=== PATIENT | male | born 1980 | race Caucasian/White ===

== ENCOUNTER 2016-03-12 23:45 | Emergency (ER) | payer OTHER, SELFPAY ==
[~2016-03-12 23:45] MED LIST: CELE-19 PO; FLON1SPR; GABA600T PO; LISI40TAB PO; MIRA33504 PO; MOBI15TA PO; OMEP40CA2 PO; ROBA500T PO; ULTR50TA PO; ZYRT10CA PO
[2016-03-13 00:43] LABS: BASO # 0.1 K/mm3 (0.0-0.2); BASO % 1.2 % (0.0-1.0); EOS # 0.1 K/mm3 (0.0-0.50); EOS % 1.1 % (0.0-3.0); LARGE UNSTAINED CELL # 0.2 K/mm3 (0.0-0.4); LARGE UNSTAINED CELL % 1.7 % (0.0-4.0); LYMPH # 4.2 K/mm3 (1.5-4.5); LYMPH % 39.5 % (24.0-44.0); MEAN CORPUSCULAR HEMOGLOBIN 30.9 pg (27.0-33.0); MEAN CORPUSCULAR HGB CONC 34.7 g/dl (32.0-36.5); MONO # 0.6 K/mm3 (0.0-0.8); MONO % 6.2 % (0.0-5.0); NEUTROPHILS # 5.2 K/mm3 (1.8-7.7); NEUTROPHILS % 50.3 % (36.0-66.0); PLATELET COUNT, AUTOMATED 260 k/mm3 (150-450); RED CELL DISTRIBUTION WIDTH 13.6 % (11.5-14.5); WHITE BLOOD COUNT 10.3 K/mm3 (4.0-10.0)
[2016-03-13 00:51] LABS: ANION GAP 7 MEQ/L (8-16); BLOOD UREA NITROGEN 16 MG/DL (7-18); CALCIUM LEVEL 8.9 MG/DL (8.5-10.1); CARBON DIOXIDE LEVEL 28 MEQ/L (21-32); CHLORIDE LEVEL 107 MEQ/L (98-107); GLOMERULAR FILTRATION RATE > 60.0 (>60); GLUCOSE, FASTING 88 MG/DL (70-105); POTASSIUM SERUM 3.9 MEQ/L (3.5-5.1); SODIUM LEVEL 142 MEQ/L (136-145)
--- NOTE | 2016-03-13 02:32 | EDDOCDS ---
Physician Documentation [facility] Name: Glen Harris Age: 35 yrs Sex: Male : 1980 Arrival Date: 03/12/2016 Time: 23:45 Bed 12 Private MD: Sharlene Acevedo C Disposition: 03/13/16 02:04 Discharged to Home/Self Care. Impression: Chest pain, unspecified. - Condition is Stable. - Discharge Instructions: Nonspecific Chest Pain, Chest Wall Pain, Nonspecific Chest Pain, [id number]. - Medication Reconciliation, Local Pharmacy Hours form. - Follow up: Sharlene Acevedo; When: Call to arrange an appointment; Reason: Continuance of care. - Problem is an acute exacerbation. - Symptoms are resolved. Historical: - Allergies: Bees; - Home Meds: 1. gabapentin 300 mg Oral cap 3 caps daily 2. cetirizine 10 mg oral tab 1 tab once daily 3. fluticasone 50 mcg/actuation nasal spsn 2 sprays once daily 4. lisinopril 40 mg Oral tab 1 tab once daily 5. Magnesium Oxide 100mg Oral daily 6. [place] 5-325 mg Oral tab 1 tab every 6 hours 7. multivitamin Oral tab 1 tablet daily 8. Vitamin B Complex daily 9. vitamin E 200 unit Oral tab Unknown daily - PMHx: Hypertension; Kidney stones; Sciatica; Bulging Discs; Chiari Malformation; - PSHx: Ear Tubes; Colonoscopy; Endoscopy, Upper; - Social history: Smoking status: Patient uses tobacco products, current every day smoker. No barriers to communication noted, The patient speaks fluent Guamanian. - Family history: Not pertinent. - : The pt / caregiver states he / she is not on anticoagulants. Home medication list is obtained from the patient. - Exposure Risk Screening:: None identified. Vital Signs: 03/12 23:48 BP 148 / 96; Pulse 85; Resp 18 S; Temp 97.4(O); Pulse Ox 100% on R/A; Weight 108.86 kg gr2 / 240 lbs (R); Height 5 ft. 11 in. (180.34 cm) (R); Pain 6/10; 03/13 00:04 BP 157 / 98 (auto/); mgs 00:06 Pulse 80 MON; mgs 00:19 BP 142 / 80 (auto/); mgs 00:19 Pulse 84 MON; mgs 00:34 BP 134 / 84 (auto/); mgs 00:34 Pulse 70 MON; Pulse Ox 99% ; mgs 00:49 BP 133 / 83 (auto/); mgs 00:49 Pulse 66 MON; Pulse Ox 99% ; mgs 01:04 BP 137 / 88 (auto/); mgs 01:04 Pulse 70 MON; Pulse Ox 97% ; mgs 01:19 BP 127 / 77 (auto/); mgs 01:19 Pulse 70 MON; Pulse Ox 97% ; mgs 01:34 BP 133 / 81 (auto/); mgs 01:34 Pulse 70 MON; Pulse Ox 96% ; mgs 01:49 BP 122 / 78 (auto/); mgs 01:49 Pulse 66 MON; Pulse Ox 98% ; mgs 02:04 BP 124 / 87 (auto/); mgs 02:04 Pulse 72 MON; Pulse Ox 96% ; mgs 02:19 BP 132 / 74 (auto/); mgs 02:19 Pulse 66 MON; mgs 02:20 BP 134 / 81 (auto/); mgs 02:20 Pulse 60 MON; mgs 02:22 BP 134 / 87; Pulse 60; Resp 18; Temp 97.6(TE); Pulse Ox 98% on R/A; Pain 0/10; jmv 08 23:48 Body Mass Index 33.47 (108.86 kg, 180.34 cm) gr2 MDM: 00:02 ECG WITH READING ER PHYS+CARDIAG ordered. EDMS 00:21 Siebel Developer/Pulse Ox/q 30 min VS ordered. mm11 00:21 IV Saline Lock ordered. mm11 00:21 Rhythm Strip to chart ordered. mm11 00:21 Undress patient appropriately for examination ordered. mm11 00:21 Basic Metabolic Profile Ordered. EDMS 00:22 CBC with Diff Ordered. EDMS 00:22 Cardiac Injury Profile Ordered. EDMS 00:22 D-Dimer Quant Ordered. EDMS 00:22 Troponin Ordered. EDMS 00:22 Chest, 2 View (pa\E\lat) Ordered. EDMS 00:48 Financial registration complete. [facility] 01:06 [facility] Payment Agreement was scanned into [employer] and attached to record. [facility] 01:08 Basic Metabolic Profile Reviewed. mm11 01:08 CBC with Diff Reviewed. mm11 01:08 Cardiac Injury Profile Reviewed. mm11 01:08 D-Dimer Quant Reviewed. mm11 01:08 Troponin Reviewed. 11 Signatures: Dispatcher [employer] Houston Craft, DO 11 Fadumo Forbes Matthew,RN RN Jennifer Valle RN RN af2 The chart was reviewed and I authenticate all verbal orders and agree with the evaluation and treatment provided.Attachments: 01:06 [facility] Payment Agreement [facility] MTDD
--- NOTE | 2016-03-13 02:32 | EDDOCDS ---
Nurse's Notes [facility] Name: Glen Harris Age: 35 yrs Sex: Male : 1980 Arrival Date: 03/12/2016 Time: 23:45 Bed 12 Private MD: Sharlene Acevedo C Diagnosis: Chest pain, unspecified Presentation: 03/12 23:51 Presenting complaint: Patient states: chest pain, aches and pains to bilateral upper af2 extremities. stabbing pain to center of chest, intermittent, SOB. Aspirin was not taken prior to arrival. Adult Sepsis Screening: The patient does not have new or worsening altered mentation. Patient's respiratory rate is less than 22. Systolic blood pressure is greater than 100. Patient has a qSOFA score of 0- Negative Sepsis Screen. Suicide/Homicide risk assessment- the patient denies having any suicidal and/or homicidal ideations and does not present with any other emotional, behavioral or mental health complaints. Status: Patient is not a service line coordinator or dependent. Transition of care: patient was not received from another setting of care. 23:51 Acuity: MIGUEL ANGEL Level 3 af2 23:51 Method Of Arrival: Walkin/Carried/Asstd af2 Triage Assessment: 23:59 General: Appears in no apparent distress, Behavior is cooperative. Pain: Location: af2 chest Pain currently is 4 out of 10 on a pain scale. Pt Declines HIV testing. Cardiovascular: Chest pain is described as mild, radiates Does not radiate. episodes are intermittent began 4 hours prior to arrival. Respiratory: Airway is patent Respiratory effort is even, unlabored. Derm: Skin is normal. Historical: - Allergies: Bees; - Home Meds: 1. gabapentin 300 mg Oral cap 3 caps daily 2. cetirizine 10 mg oral tab 1 tab once daily 3. fluticasone 50 mcg/actuation nasal spsn 2 sprays once daily 4. lisinopril 40 mg Oral tab 1 tab once daily 5. Magnesium Oxide 100mg Oral daily 6. [place] 5-325 mg Oral tab 1 tab every 6 hours 7. multivitamin Oral tab 1 tablet daily 8. Vitamin B Complex daily 9. vitamin E 200 unit Oral tab Unknown daily - PMHx: Hypertension; Kidney stones; Sciatica; Bulging Discs; Chiari Malformation; - PSHx: Ear Tubes; Colonoscopy; Endoscopy, Upper; - Social history: Smoking status: Patient uses tobacco products, current every day smoker. No barriers to communication noted, The patient speaks fluent Wolof. - Family history: Not pertinent. - : The pt / caregiver states he / she is not on anticoagulants. Home medication list is obtained from the patient. - Exposure Risk Screening:: None identified. Screenin/09 00:23 Screening information is obtained from the patient. Fall risk: No risks identified. mgs Assistance ADL's: requires no assistance with activities of daily living. Abuse/DV Screen: The patient / caregiver reports he/she is: not in a situation that causes fear, pain or injury. Nutritional screening: No deficits noted. Advance Directives: Currently, there is no health care proxy. There is no active DNR order. home support is adequate. Assessment: 00:23 Adult Sepsis Screening: The patient does not have new or worsening altered mentation. mgs Patient's respiratory rate is less than 22. Systolic blood pressure is greater than 100. Patient has a qSOFA score of 0- Negative Sepsis Screen. General: Appears in no apparent distress, Behavior is appropriate for age, cooperative. Neurological: Level of Consciousness is awake, alert, Oriented to person, place, time. Cardiovascular: Heart tones S1 S2 present Pulses are 2+ in right radial artery and left radial artery Rhythm is sinus rhythm No ectopy. Reports Pain with deep inhalation that is intermittent, pain usually 4/10. Respiratory: Airway is patent Respiratory effort is even, unlabored, Respiratory pattern is regular, symmetrical. Derm: Skin is pink, warm & dry. 01:18 General: Appears in no apparent distress, Behavior is appropriate for age, cooperative. mgs Neurological: Level of Consciousness is awake, alert, Oriented to person, place, time. Cardiovascular: Heart tones S1 S2 present. Respiratory: Airway is patent Respiratory effort is even, unlabored, Respiratory pattern is regular, symmetrical. Derm: Skin is pink, warm & dry. 02:28 Adult Sepsis Screening: The patient does not have new or worsening altered mentation. mgs Patient's respiratory rate is less than 22. Systolic blood pressure is greater than 100. Patient has a qSOFA score of 0- Negative Sepsis Screen. General: Appears in no apparent distress, Behavior is appropriate for age, cooperative. Neurological: Level of Consciousness is awake, alert, Oriented to person, place, time. Cardiovascular: Capillary refill < 3 seconds. Respiratory: Airway is patent Respiratory effort is even, unlabored, Respiratory pattern is regular, symmetrical. Derm: Skin is pink, warm & dry. Vital Signs: 03/12 23:48 BP 148 / 96; Pulse 85; Resp 18 S; Temp 97.4(O); Pulse Ox 100% on R/A; Weight 108.86 kg gr2 (R); Height 5 ft. 11 in. (180.34 cm) (R); Pain 6/10; 03/13 00:04 BP 157 / 98 (auto/); mgs 00:06 Pulse 80 MON; mgs 00:19 BP 142 / 80 (auto/); mgs 00:19 Pulse 84 MON; mgs 00:34 BP 134 / 84 (auto/); mgs 00:34 Pulse 70 MON; Pulse Ox 99% ; mgs 00:49 BP 133 / 83 (auto/); mgs 00:49 Pulse 66 MON; Pulse Ox 99% ; mgs 01:04 BP 137 / 88 (auto/); mgs 01:04 Pulse 70 MON; Pulse Ox 97% ; mgs 01:19 BP 127 / 77 (auto/); mgs 01:19 Pulse 70 MON; Pulse Ox 97% ; mgs 01:34 BP 133 / 81 (auto/); mgs 01:34 Pulse 70 MON; Pulse Ox 96% ; mgs 01:49 BP 122 / 78 (auto/); mgs 01:49 Pulse 66 MON; Pulse Ox 98% ; mgs 02:04 BP 124 / 87 (auto/); mgs 02:04 Pulse 72 MON; Pulse Ox 96% ; mgs 02:19 BP 132 / 74 (auto/); mgs 02:19 Pulse 66 MON; mgs 02:20 BP 134 / 81 (auto/); mgs 02:20 Pulse 60 MON; mgs 02:22 BP 134 / 87; Pulse 60; Resp 18; Temp 97.6(TE); Pulse Ox 98% on R/A; Pain 0/10; jmv 03/12 23:48 Body Mass Index 33.47 (108.86 kg, 180.34 cm) gr2 Vitals: 03/12 23:48 Log In Time: March 12, 2016 at 23:48. gr2 23:49 RN notified that patient meets Red Flag criteria. gr2 ED Course: 23:47 Patient visited by Mariana Gonzalez. gr2 23:47 Patient moved to Waiting gr2 23:48 Sharlene Acevedo is Private Physician. gr2 23:49 Patient visited by Mariana Gonzalez. gr2 23:49 Patient moved to Pre RCE gr2 23:53 Triage Initiated af2 01/09 00:00 Patient visited by Jennifer Mcarthur RN. af2 00:01 Mary Benites RN is Primary Nurse. af2 00:01 Brenda Montemayor RN is Primary Nurse. af2 00:01 Patient moved to 12 af2 00:02 Houston Simms DO is Attending Physician. mm11 00:02 Patient visited by Houston Simms DO. mm11 00:20 Patient visited by Houston Simms DO. mm11 00:22 Basic Metabolic Profile Sent. mgs 00:22 CBC with Diff Sent. mgs 00:22 Cardiac Injury Profile Sent. mgs 00:22 D-Dimer Quant Sent. mgs 00:22 Troponin Sent. mgs 00:23 Inserted saline lock: 18 gauge in right antecubital area and blood collected. The mgs patient tolerated the procedure well. 00:25 Patient visited by Houston Chu RN. mgs 00:35 EKG done. (by ED staff). Reviewed by Houston Simms DO. kb5 00:42 Primary Nurse role handed off by Mary Benites RN kb5 01:06 [facility] Payment Agreement was scanned into [employer] and attached to record. slh 01:19 Patient visited by Houston Chu RN. mgs 02:03 Patient visited by Houston Simms DO. mm11 02:03 Sharlene Acevedo is Referral Physician. mm11 02:24 Patient visited by Les Carrillo PCA. jmv 02:28 Discontinued IV lock intact, bleeding controlled, pressure dressing applied, No mgs redness/swelling at site. No procedures done that require assistance. 02:29 The patient / caregiver is instructed regarding the plan of care and ED course. Cardiac mgs monitor on. Pulse ox on. NIBP on. Order Results: Lab Order: Basic Metabolic Profile; SPEC'M 03/13/16 00:26 Test: GLUCOSE, FASTING; Value: 88; Range: 70-105; Units: MG/DL; Status: F Test: BLOOD UREA NITROGEN; Value: 16; Range: 7-18; Units: MG/DL; Status: F Test: CREATININE FOR GFR; Value: 1.00; Range: 0.70-1.30; Units: MG/DL; Status: F Test: GLOMERULAR FILTRATION RATE; Value: > 60.0; Range: >60; Status: F Test: SODIUM LEVEL; Value: 142; Range: 136-145; Units: MEQ/L; Status: F Test: POTASSIUM SERUM; Value: 3.9; Range: 3.5-5.1; Units: MEQ/L; Status: F Test: CHLORIDE LEVEL; Value: 107; Range: 98-107; Units: MEQ/L; Status: F Test: CARBON DIOXIDE LEVEL; Value: 28; Range: 21-32; Units: MEQ/L; Status: F Test: ANION GAP; Value: 7; Range: 8-16; Abnormal: Below low normal; Units: MEQ/L; Status: F Test: CALCIUM LEVEL; Value: 8.9; Range: 8.5-10.1; Units: MG/DL; Status: F Test Note: ; Units are mL/min/1.73 m2 Chronic Kidney Disease Staging per NKF: Stage I & II GFR >=60 Normal to Mildly Decreased Stage III GFR 30-59 Moderately Decreased Stage IV GFR 15-29 Severely Decreased Stage V GFR <15 Very Little GFR Left ESRD GFR <15 on [employer]ER Lab Order: CBC with Diff; SPEC'M 03/13/16 00:26 Test: WHITE BLOOD COUNT; Value: 10.3; Range: 4.0-10.0; Abnormal: Above high normal; Units: K/mm3; Status: F Test: RED BLOOD COUNT; Value: 5.10; Range: 4.30-6.10; Units: M/mm3; Status: F Test: HEMOGLOBIN; Value: 15.7; Range: 14.0-18.0; Units: g/dl; Status: F Test: HEMATOCRIT; Value: 45.4; Range: 42.0-52.0; Units: %; Status: F Test: MEAN CORPUSCULAR VOLUME; Value: 89.0; Range: 80.0-96.0; Units: fl; Status: F Test: MEAN CORPUSCULAR HEMOGLOBIN; Value: 30.9; Range: 27.0-33.0; Units: pg; Status: F Test: MEAN CORPUSCULAR HGB CONC; Value: 34.7; Range: 32.0-36.5; Units: g/dl; Status: F Test: RED CELL DISTRIBUTION WIDTH; Value: 13.6; Range: 11.5-14.5; Units: %; Status: F Test: PLATELET COUNT, AUTOMATED; Value: 260; Range: 150-450; Units: k/mm3; Status: F Test: NEUTROPHILS %; Value: 50.3; Range: 36.0-66.0; Units: %; Status: F Test: LYMPH %; Value: 39.5; Range: 24.0-44.0; Units: %; Status: F Test: MONO %; Value: 6.2; Range: 0.0-5.0; Abnormal: Above high normal; Units: %; Status: F Test: EOS %; Value: 1.1; Range: 0.0-3.0; Units: %; Status: F Test: BASO %; Value: 1.2; Range: 0.0-1.0; Abnormal: Above high normal; Units: %; Status: F Test: LARGE UNSTAINED CELL %; Value: 1.7; Range: 0.0-4.0; Units: %; Status: F Test: NEUTROPHILS #; Value: 5.2; Range: 1.8-7.7; Units: K/mm3; Status: F Test: LYMPH #; Value: 4.2; Range: 1.5-4.5; Units: K/mm3; Status: F Test: MONO #; Value: 0.6; Range: 0.0-0.8; Units: K/mm3; Status: F Test: EOS #; Value: 0.1; Range: 0.0-0.50; Units: K/mm3; Status: F Test: BASO #; Value: 0.1; Range: 0.0-0.2; Units: K/mm3; Status: F Test: LARGE UNSTAINED CELL #; Value: 0.2; Range: 0.0-0.4; Units: K/mm3; Status: F Lab Order: Cardiac Injury Profile; SPEC'M 03/13/16 00:26 Test: CPK CREATINE PHOSPHOKINASE; Value: 194; Range: 39-308; Units: U/L; Status: F Test: CK-MB VALUE MASS; Value: 1.3; Range: 0.0-3.6; Units: NG/ML; Status: F Test: MB/CK RELATIVE INDEX; Value: 0.67; Range: < OR =4; Status: F Test Note: ; DIAGNOSIS CRITERIA MMB ng/ml Relative Index (RI) NON-AMI < or = 5 N/A [place] > 5 < or = 4 AMI > 5 > 4 Lab Order: D-Dimer Quant; SPEC'M 03/13/16 00:26 Test: D-DIMER QUANT; Value: < 270.0; Range: <500; Units: ng/ml; Status: F Lab Order: Troponin; SPEC'M 03/13/16 00:26 Test: TROPONIN I; Value: < 0.02; Range: < 0.10; Units: NG/ML; Status: F Test Note: ; Troponin I Reference Interval for [employer] LOCI: 99th Percentile= 0.00-0.045 ng/ml Risk Stratification: <= 0.10 ng/ml Decreased Risk for Adverse Clinical Events. 0.10-1.50 ng/ml Increased Risk for Adverse Clinical Events. Evaluation of additional criterion and/or repeat testing in 2-6 hours is suggested to rule out myocardial damage. >= 1.50 ng/ml Indicative of Myocardial Injury. Outcome: 02:04 Discharge ordered by Provider. mm11 02:28 Discharge Assessment: Patient awake, alert and oriented x 3. No cognitive and/or mgs functional deficits noted. Patient verbalized understanding of disposition instructions. patient administered narcotics - no. The following High Risk Discharge criteria are identified: None. Discharged to home ambulatory, with friend. Condition: stable. Discharge instructions given to patient, Instructed on discharge instructions, follow up and referral plans. Demonstrated understanding of instructions, Pt was receptive of discharge instructions/ teaching. Property sent home with patient. 02:29 No special radiology studies were completed. mgs 02:30 Patient left the ED. mgs Signatures: Vern Kraus, SELVIN MOTOR BLOCK MECHANIC kb5 Houston Simms DO DO mm11 Carlos, Fadumo Segal Matthew,RN RN mgs Jennifer Mcarthur,RN RN af2 Les Carrillo, MOTOR BLOCK MECHANIC MOTOR BLOCK MECHANIC jmv ABYD
--- NOTE | 2016-03-13 08:40 | REP ---
Clinical: Chest pain . Comparison: None of the . Technique: PA and lateral. Findings: The mediastinum and cardiac silhouette are normal. The lung [place] are clear and without acute consolidation, effusion, or pneumothorax. The skeletal structures are intact and normal. Impression: 1. No acute cardiopulmonary process. Signed by Martinez Teague MD 03/13/2016 08:31 A
--- NOTE | 2016-03-13 09:27 | ECGEPIP ---
Stationary ECG Study [facility] - ED Test Date: 2016-03-13 Pat Name: VANESSA ELENA Department: Room: - Gender: M Sprayer Insecticide: FALGUNI : 1980 Requested By: RUBI Meyers Order Number: [id number] Reading MD: Kenia Cisneros Measurements Intervals [place] Rate: 73 P: 35 FL: 169 QRS: 3 QRSD: 92 T: 23 QT: 340 QTc: 376 Interpretive Statements SINUS RHYTHM NO PRIOR FOR COMPARISON Electronically Signed On 03-13-2016 9:27:05 EST by Kenia Cisneros
--- NOTE | 2016-03-15 03:31 | EDDOCDS ---
Nurse's Notes [facility] Name: Vanessa Elena Age: 35 yrs Sex: Male : 1980 Arrival Date: 03/12/2016 Time: 23:45 Bed 12 Private MD: Sharlene Acevedo C Diagnosis: Chest pain, unspecified Presentation: 03/12 23:51 Presenting complaint: Patient states: chest pain, aches and pains to bilateral upper af2 extremities. stabbing pain to center of chest, intermittent, SOB. Aspirin was not taken prior to arrival. Adult Sepsis Screening: The patient does not have new or worsening altered mentation. Patient's respiratory rate is less than 22. Systolic blood pressure is greater than 100. Patient has a qSOFA score of 0- Negative Sepsis Screen. Suicide/Homicide risk assessment- the patient denies having any suicidal and/or homicidal ideations and does not present with any other emotional, behavioral or mental health complaints. Status: Patient is not a slot service specialist or dependent. Transition of care: patient was not received from another setting of care. 23:51 Acuity: MIGUEL ANGEL Level 3 af2 23:51 Method Of Arrival: Walkin/Carried/Asstd af2 Triage Assessment: 23:59 General: Appears in no apparent distress, Behavior is cooperative. Pain: Location: af2 chest Pain currently is 4 out of 10 on a pain scale. Pt Declines HIV testing. Cardiovascular: Chest pain is described as mild, radiates Does not radiate. episodes are intermittent began 4 hours prior to arrival. Respiratory: Airway is patent Respiratory effort is even, unlabored. Derm: Skin is normal. Historical: - Allergies: Bees; - Home Meds: 1. gabapentin 300 mg Oral cap 3 caps daily 2. cetirizine 10 mg oral tab 1 tab once daily 3. fluticasone 50 mcg/actuation nasal spsn 2 sprays once daily 4. lisinopril 40 mg Oral tab 1 tab once daily 5. Magnesium Oxide 100mg Oral daily 6. [place] 5-325 mg Oral tab 1 tab every 6 hours 7. multivitamin Oral tab 1 tablet daily 8. Vitamin B Complex daily 9. vitamin E 200 unit Oral tab Unknown daily - PMHx: Hypertension; Kidney stones; Sciatica; Bulging Discs; Chiari Malformation; - PSHx: Ear Tubes; Colonoscopy; Endoscopy, Upper; - Social history: Smoking status: Patient uses tobacco products, current every day smoker. No barriers to communication noted, The patient speaks fluent Italian. - Family history: Not pertinent. - : The pt / caregiver states he / she is not on anticoagulants. Home medication list is obtained from the patient. - Exposure Risk Screening:: None identified. Screenin/09 00:23 Screening information is obtained from the patient. Fall risk: No risks identified. mgs Assistance ADL's: requires no assistance with activities of daily living. Abuse/DV Screen: The patient / caregiver reports he/she is: not in a situation that causes fear, pain or injury. Nutritional screening: No deficits noted. Advance Directives: Currently, there is no health care proxy. There is no active DNR order. home support is adequate. Assessment: 00:23 Adult Sepsis Screening: The patient does not have new or worsening altered mentation. mgs Patient's respiratory rate is less than 22. Systolic blood pressure is greater than 100. Patient has a qSOFA score of 0- Negative Sepsis Screen. General: Appears in no apparent distress, Behavior is appropriate for age, cooperative. Neurological: Level of Consciousness is awake, alert, Oriented to person, place, time. Cardiovascular: Heart tones S1 S2 present Pulses are 2+ in right radial artery and left radial artery Rhythm is sinus rhythm No ectopy. Reports Pain with deep inhalation that is intermittent, pain usually 4/10. Respiratory: Airway is patent Respiratory effort is even, unlabored, Respiratory pattern is regular, symmetrical. Derm: Skin is pink, warm & dry. 01:18 General: Appears in no apparent distress, Behavior is appropriate for age, cooperative. mgs Neurological: Level of Consciousness is awake, alert, Oriented to person, place, time. Cardiovascular: Heart tones S1 S2 present. Respiratory: Airway is patent Respiratory effort is even, unlabored, Respiratory pattern is regular, symmetrical. Derm: Skin is pink, warm & dry. 02:28 Adult Sepsis Screening: The patient does not have new or worsening altered mentation. mgs Patient's respiratory rate is less than 22. Systolic blood pressure is greater than 100. Patient has a qSOFA score of 0- Negative Sepsis Screen. General: Appears in no apparent distress, Behavior is appropriate for age, cooperative. Neurological: Level of Consciousness is awake, alert, Oriented to person, place, time. Cardiovascular: Capillary refill < 3 seconds. Respiratory: Airway is patent Respiratory effort is even, unlabored, Respiratory pattern is regular, symmetrical. Derm: Skin is pink, warm & dry. Vital Signs: 03/12 23:48 BP 148 / 96; Pulse 85; Resp 18 S; Temp 97.4(O); Pulse Ox 100% on R/A; Weight 108.86 kg gr2 (R); Height 5 ft. 11 in. (180.34 cm) (R); Pain 6/10; 03/13 00:04 BP 157 / 98 (auto/); mgs 00:06 Pulse 80 MON; mgs 00:19 BP 142 / 80 (auto/); mgs 00:19 Pulse 84 MON; mgs 00:34 BP 134 / 84 (auto/); mgs 00:34 Pulse 70 MON; Pulse Ox 99% ; mgs 00:49 BP 133 / 83 (auto/); mgs 00:49 Pulse 66 MON; Pulse Ox 99% ; mgs 01:04 BP 137 / 88 (auto/); mgs 01:04 Pulse 70 MON; Pulse Ox 97% ; mgs 01:19 BP 127 / 77 (auto/); mgs 01:19 Pulse 70 MON; Pulse Ox 97% ; mgs 01:34 BP 133 / 81 (auto/); mgs 01:34 Pulse 70 MON; Pulse Ox 96% ; mgs 01:49 BP 122 / 78 (auto/); mgs 01:49 Pulse 66 MON; Pulse Ox 98% ; mgs 02:04 BP 124 / 87 (auto/); mgs 02:04 Pulse 72 MON; Pulse Ox 96% ; mgs 02:19 BP 132 / 74 (auto/); mgs 02:19 Pulse 66 MON; mgs 02:20 BP 134 / 81 (auto/); mgs 02:20 Pulse 60 MON; mgs 02:22 BP 134 / 87; Pulse 60; Resp 18; Temp 97.6(TE); Pulse Ox 98% on R/A; Pain 0/10; jmv 03/12 23:48 Body Mass Index 33.47 (108.86 kg, 180.34 cm) gr2 Vitals: 03/12 23:48 Log In Time: March 12, 2016 at 23:48. gr2 23:49 RN notified that patient meets Red Flag criteria. gr2 ED Course: 23:47 Patient visited by Mariana Gonzalez. gr2 23:47 Patient moved to Waiting gr2 23:48 Sharlene Acevedo is Private Physician. gr2 23:49 Patient visited by Mariana Gonzalez. gr2 23:49 Patient moved to Pre RCE gr2 23:53 Triage Initiated af2 09 00:00 Patient visited by Jennifer Mcarthur RN. af2 00:01 Mary Benites,DENEEN is Primary Nurse. af2 00:01 Brenda Montemayor,DENEEN is Primary Nurse. af2 00:01 Patient moved to 12 af2 00:02 Rubi Simms DO is Attending Physician. mm11 00:02 Patient visited by Rubi Simsm DO. mm11 00:20 Patient visited by Rubi Simms DO. mm11 00:22 Basic Metabolic Profile Sent. mgs 00:22 CBC with Diff Sent. mgs 00:22 Cardiac Injury Profile Sent. mgs 00:22 D-Dimer Quant Sent. mgs 00:22 Troponin Sent. mgs 00:23 Inserted saline lock: 18 gauge in right antecubital area and blood collected. The mgs patient tolerated the procedure well. 00:25 Patient visited by Rubi Chu RN. mgs 00:35 EKG done. (by ED staff). Reviewed by Rubi Simms DO. kb5 00:42 Primary Nurse role handed off by Mary Benites RN kb5 01:06 [facility] Payment Agreement was scanned into [employer] and attached to record. slh 01:19 Patient visited by Rubi Chu RN. mgs 02:03 Patient visited by Rubi Simms DO. mm11 02:03 Sharlene Acevedo is Referral Physician. mm11 02:24 Patient visited by Les Carrillo PCA. jmv 02:28 Discontinued IV lock intact, bleeding controlled, pressure dressing applied, No mgs redness/swelling at site. No procedures done that require assistance. 02:29 The patient / caregiver is instructed regarding the plan of care and ED course. Cardiac mgs monitor on. Pulse ox on. NIBP on. 09:00 Chest, 2 View (pa\E\lat) Returned. EDMS 09:45 EKG-ADULT Returned. EDMS 11:44 T-Sheet-- Draft Copy was scanned into [employer] and attached to record. gb 11:45 ECG/EKG was scanned into [employer] and attached to record. gb 11:45 Trend VS was scanned into [employer] and attached to record. gb Attachments: 11:45 Trend VS gb Order Results: Lab Order: Basic Metabolic Profile; SPEC'M 03/13/16 00:26 Test: GLUCOSE, FASTING; Value: 88; Range: 70-105; Units: MG/DL; Status: F Test: BLOOD UREA NITROGEN; Value: 16; Range: 7-18; Units: MG/DL; Status: F Test: CREATININE FOR GFR; Value: 1.00; Range: 0.70-1.30; Units: MG/DL; Status: F Test: GLOMERULAR FILTRATION RATE; Value: > 60.0; Range: >60; Status: F Test: SODIUM LEVEL; Value: 142; Range: 136-145; Units: MEQ/L; Status: F Test: POTASSIUM SERUM; Value: 3.9; Range: 3.5-5.1; Units: MEQ/L; Status: F Test: CHLORIDE LEVEL; Value: 107; Range: 98-107; Units: MEQ/L; Status: F Test: CARBON DIOXIDE LEVEL; Value: 28; Range: 21-32; Units: MEQ/L; Status: F Test: ANION GAP; Value: 7; Range: 8-16; Abnormal: Below low normal; Units: MEQ/L; Status: F Test: CALCIUM LEVEL; Value: 8.9; Range: 8.5-10.1; Units: MG/DL; Status: F Test Note: ; Units are mL/min/1.73 m2 Chronic Kidney Disease Staging per NKF: Stage I & II GFR >=60 Normal to Mildly Decreased Stage III GFR 30-59 Moderately Decreased Stage IV GFR 15-29 Severely Decreased Stage V GFR <15 Very Little GFR Left ESRD GFR <15 on IMPORT CLERK Lab Order: CBC with Diff; SPEC'M 03/13/16 00:26 Test: WHITE BLOOD COUNT; Value: 10.3; Range: 4.0-10.0; Abnormal: Above high normal; Units: K/mm3; Status: F Test: RED BLOOD COUNT; Value: 5.10; Range: 4.30-6.10; Units: M/mm3; Status: F Test: HEMOGLOBIN; Value: 15.7; Range: 14.0-18.0; Units: g/dl; Status: F Test: HEMATOCRIT; Value: 45.4; Range: 42.0-52.0; Units: %; Status: F Test: MEAN CORPUSCULAR VOLUME; Value: 89.0; Range: 80.0-96.0; Units: fl; Status: F Test: MEAN CORPUSCULAR HEMOGLOBIN; Value: 30.9; Range: 27.0-33.0; Units: pg; Status: F Test: MEAN CORPUSCULAR HGB CONC; Value: 34.7; Range: 32.0-36.5; Units: g/dl; Status: F Test: RED CELL DISTRIBUTION WIDTH; Value: 13.6; Range: 11.5-14.5; Units: %; Status: F Test: PLATELET COUNT, AUTOMATED; Value: 260; Range: 150-450; Units: k/mm3; Status: F Test: NEUTROPHILS %; Value: 50.3; Range: 36.0-66.0; Units: %; Status: F Test: LYMPH %; Value: 39.5; Range: 24.0-44.0; Units: %; Status: F Test: MONO %; Value: 6.2; Range: 0.0-5.0; Abnormal: Above high normal; Units: %; Status: F Test: EOS %; Value: 1.1; Range: 0.0-3.0; Units: %; Status: F Test: BASO %; Value: 1.2; Range: 0.0-1.0; Abnormal: Above high normal; Units: %; Status: F Test: LARGE UNSTAINED CELL %; Value: 1.7; Range: 0.0-4.0; Units: %; Status: F Test: NEUTROPHILS #; Value: 5.2; Range: 1.8-7.7; Units: K/mm3; Status: F Test: LYMPH #; Value: 4.2; Range: 1.5-4.5; Units: K/mm3; Status: F Test: MONO #; Value: 0.6; Range: 0.0-0.8; Units: K/mm3; Status: F Test: EOS #; Value: 0.1; Range: 0.0-0.50; Units: K/mm3; Status: F Test: BASO #; Value: 0.1; Range: 0.0-0.2; Units: K/mm3; Status: F Test: LARGE UNSTAINED CELL #; Value: 0.2; Range: 0.0-0.4; Units: K/mm3; Status: F Lab Order: Cardiac Injury Profile; [facility] 03/13/16 00:26 Test: CPK CREATINE PHOSPHOKINASE; Value: 194; Range: 39-308; Units: U/L; Status: F Test: CK-MB VALUE MASS; Value: 1.3; Range: 0.0-3.6; Units: NG/ML; Status: F Test: MB/CK RELATIVE INDEX; Value: 0.67; Range: < OR =4; Status: F Test Note: ; DIAGNOSIS CRITERIA MMB ng/ml Relative Index (RI) NON-AMI < or = 5 N/A [place] > 5 < or = 4 AMI > 5 > 4 Lab Order: D-Dimer Quant; [facility] 03/13/16 00:26 Test: D-DIMER QUANT; Value: < 270.0; Range: <500; Units: ng/ml; Status: F Lab Order: Troponin; [facility] 03/13/16 00:26 Test: TROPONIN I; Value: < 0.02; Range: < 0.10; Units: NG/ML; Status: F Test Note: ; Troponin I Reference Interval for [employer] LOCI: 99th Percentile= 0.00-0.045 ng/ml Risk Stratification: <= 0.10 ng/ml Decreased Risk for Adverse Clinical Events. 0.10-1.50 ng/ml Increased Risk for Adverse Clinical Events. Evaluation of additional criterion and/or repeat testing in 2-6 hours is suggested to rule out myocardial damage. >= 1.50 ng/ml Indicative of Myocardial Injury. Radiology Order: EKG-ADULT Test: EKG-ADULT REASON FOR EXAMINATION: Chest Pain; Stationary ECG Study; [facility] - ED; ; Test Date: 2016-03-13; Pat Name: VANESSA ELENA Department:; Room: -; Gender: M Director Of Rehabilitative Services: FALGUNI; : 1980 Requested By: RUBI Meyers; Order Number: [id number] Reading MD: Kenia Cisneros; Measurements; Intervals [place]; Rate: 73 P: 35; IN: 169 QRS: 3; QRSD: 92 T: 23; QT: 340; QTc: 376; Interpretive Statements; SINUS RHYTHM; NO PRIOR FOR COMPARISON; Electronically Signed On 03-13-2016 9:27:05 EST by Kenia Cisneros; Radiology Order: Chest, 2 View (pa\E\lat) Test: Chest, 2 View (pa\E\lat) REASON FOR EXAMINATION: Chest Pain; Clinical: Chest pain .; ; Comparison: None of the .; ; Technique: PA and lateral.; ; Findings:; The mediastinum and cardiac silhouette are normal. The lung [place] are clear and; without acute consolidation, effusion, or pneumothorax. The skeletal structures; are intact and normal.; ; Impression:; 1. No acute cardiopulmonary process.; ; ; Signed by; Martinez Teague MD 03/13/2016 08:31 A; Outcome: 02:04 Discharge ordered by Provider. mm11 02:28 Discharge Assessment: Patient awake, alert and oriented x 3. No cognitive and/or mgs functional deficits noted. Patient verbalized understanding of disposition instructions. patient administered narcotics - no. The following High Risk Discharge criteria are identified: None. Discharged to home ambulatory, with friend. Condition: stable. Discharge instructions given to patient, Instructed on discharge instructions, follow up and referral plans. Demonstrated understanding of instructions, Pt was receptive of discharge instructions/ teaching. Property sent home with patient. 02:29 No special radiology studies were completed. mgs 02:30 Patient left the ED. mgs Signatures: Dispatcher [employer] EDMS Lissy Aquino, Reg Reg gb Vern Kraus, RECORD CHANGER ASSEMBLER RECORD CHANGER ASSEMBLER kb5 Rubi Simms, DO mm11 Mariana Gonzalez gr2 Fadumo Forbes [facility] Rubi Chu,RN RN s Jennifer Mcarthur,RN RN af2 Les Carrillo, RECORD CHANGER ASSEMBLER RECORD CHANGER ASSEMBLER jmv Chart Complete MTDD
--- NOTE | 2016-03-15 03:31 | EDDOCDS ---
Physician Documentation [facility] Name: Glen Harris Age: 35 yrs Sex: Male : 1980 Arrival Date: 03/12/2016 Time: 23:45 Bed 12 Private MD: Sharlene Acevedo C Disposition: 03/13/16 02:04 Discharged to Home/Self Care. Impression: Chest pain, unspecified. - Condition is Stable. - Discharge Instructions: Nonspecific Chest Pain, Chest Wall Pain, Nonspecific Chest Pain, [id number]. - Medication Reconciliation, Local Pharmacy Hours form. - Follow up: Sharlene Acevedo; When: Call to arrange an appointment; Reason: Continuance of care. - Problem is an acute exacerbation. - Symptoms are resolved. Historical: - Allergies: Bees; - Home Meds: 1. gabapentin 300 mg Oral cap 3 caps daily 2. cetirizine 10 mg oral tab 1 tab once daily 3. fluticasone 50 mcg/actuation nasal spsn 2 sprays once daily 4. lisinopril 40 mg Oral tab 1 tab once daily 5. Magnesium Oxide 100mg Oral daily 6. [place] 5-325 mg Oral tab 1 tab every 6 hours 7. multivitamin Oral tab 1 tablet daily 8. Vitamin B Complex daily 9. vitamin E 200 unit Oral tab Unknown daily - PMHx: Hypertension; Kidney stones; Sciatica; Bulging Discs; Chiari Malformation; - PSHx: Ear Tubes; Colonoscopy; Endoscopy, Upper; - Social history: Smoking status: Patient uses tobacco products, current every day smoker. No barriers to communication noted, The patient speaks fluent Burkinan. - Family history: Not pertinent. - : The pt / caregiver states he / she is not on anticoagulants. Home medication list is obtained from the patient. - Exposure Risk Screening:: None identified. Vital Signs: 03/12 23:48 BP 148 / 96; Pulse 85; Resp 18 S; Temp 97.4(O); Pulse Ox 100% on R/A; Weight 108.86 kg gr2 / 240 lbs (R); Height 5 ft. 11 in. (180.34 cm) (R); Pain 6/10; 03/13 00:04 BP 157 / 98 (auto/); mgs 00:06 Pulse 80 MON; mgs 00:19 BP 142 / 80 (auto/); mgs 00:19 Pulse 84 MON; mgs 00:34 BP 134 / 84 (auto/); mgs 00:34 Pulse 70 MON; Pulse Ox 99% ; mgs 00:49 BP 133 / 83 (auto/); mgs 00:49 Pulse 66 MON; Pulse Ox 99% ; mgs 01:04 BP 137 / 88 (auto/); mgs 01:04 Pulse 70 MON; Pulse Ox 97% ; mgs 01:19 BP 127 / 77 (auto/); mgs 01:19 Pulse 70 MON; Pulse Ox 97% ; mgs 01:34 BP 133 / 81 (auto/); mgs 01:34 Pulse 70 MON; Pulse Ox 96% ; mgs 01:49 BP 122 / 78 (auto/); mgs 01:49 Pulse 66 MON; Pulse Ox 98% ; mgs 02:04 BP 124 / 87 (auto/); mgs 02:04 Pulse 72 MON; Pulse Ox 96% ; mgs 02:19 BP 132 / 74 (auto/); mgs 02:19 Pulse 66 MON; mgs 02:20 BP 134 / 81 (auto/); mgs 02:20 Pulse 60 MON; mgs 02:22 BP 134 / 87; Pulse 60; Resp 18; Temp 97.6(TE); Pulse Ox 98% on R/A; Pain 0/10; jmv 08 23:48 Body Mass Index 33.47 (108.86 kg, 180.34 cm) gr2 MDM: 00:02 ECG WITH READING ER PHYS+CARDIAG ordered. EDMS 00:21 Neuro Ophthalmologist/Pulse Ox/q 30 min VS ordered. mm11 00:21 IV Saline Lock ordered. mm11 00:21 Rhythm Strip to chart ordered. mm11 00:21 Undress patient appropriately for examination ordered. mm11 00:21 Basic Metabolic Profile Ordered. EDMS 00:22 CBC with Diff Ordered. EDMS 00:22 Cardiac Injury Profile Ordered. EDMS 00:22 D-Dimer Quant Ordered. EDMS 00:22 Troponin Ordered. EDMS 00:22 Chest, 2 View (pa\E\lat) Ordered. EDMS 00:48 Financial registration complete. [facility] 01:06 [facility] Payment Agreement was scanned into [employer] and attached to record. [facility] 01:08 Basic Metabolic Profile Reviewed. mm11 01:08 CBC with Diff Reviewed. mm11 01:08 Cardiac Injury Profile Reviewed. mm11 01:08 D-Dimer Quant Reviewed. mm11 01:08 Troponin Reviewed. 11 11:44 T-Sheet-- Draft Copy was scanned into MED[employer] and attached to record. gb 11:45 ECG/EKG was scanned into [employer] and attached to record. gb 11:45 Trend VS was scanned into [employer] and attached to record. gb Signatures: Dispatcher [employer] EDMS Lissy Aquino, Reg Reg gb [place] Simms, DO DO [facility] Fadumo Forbes [facility] Houston Chu,RN RN mgs Jennifer McarthurRN RN af2 The chart was reviewed and I authenticate all verbal orders and agree with the evaluation and treatment provided.Attachments: 01:06 [facility] Payment Agreement [facility] 11:44 T-Sheet-- Draft Copy gb 11:45 ECG/EKG gb Chart Complete MTDD
--- NOTE | 2016-03-15 03:31 | EDDOCDS ---
Physician Documentation [facility] Name: Glen Harris Age: 35 yrs Sex: Male : 1980 Arrival Date: 03/12/2016 Time: 23:45 Bed 12 Private MD: Sharlene Acevedo C Disposition: 03/13/16 02:04 Discharged to Home/Self Care. Impression: Chest pain, unspecified. - Condition is Stable. - Discharge Instructions: Nonspecific Chest Pain, Chest Wall Pain, Nonspecific Chest Pain, [id number]. - Medication Reconciliation, Local Pharmacy Hours form. - Follow up: Sharlene Acevedo; When: Call to arrange an appointment; Reason: Continuance of care. - Problem is an acute exacerbation. - Symptoms are resolved. Historical: - Allergies: Bees; - Home Meds: 1. gabapentin 300 mg Oral cap 3 caps daily 2. cetirizine 10 mg oral tab 1 tab once daily 3. fluticasone 50 mcg/actuation nasal spsn 2 sprays once daily 4. lisinopril 40 mg Oral tab 1 tab once daily 5. Magnesium Oxide 100mg Oral daily 6. [place] 5-325 mg Oral tab 1 tab every 6 hours 7. multivitamin Oral tab 1 tablet daily 8. Vitamin B Complex daily 9. vitamin E 200 unit Oral tab Unknown daily - PMHx: Hypertension; Kidney stones; Sciatica; Bulging Discs; Chiari Malformation; - PSHx: Ear Tubes; Colonoscopy; Endoscopy, Upper; - Social history: Smoking status: Patient uses tobacco products, current every day smoker. No barriers to communication noted, The patient speaks fluent Mosotho. - Family history: Not pertinent. - : The pt / caregiver states he / she is not on anticoagulants. Home medication list is obtained from the patient. - Exposure Risk Screening:: None identified. Vital Signs: 03/12 23:48 BP 148 / 96; Pulse 85; Resp 18 S; Temp 97.4(O); Pulse Ox 100% on R/A; Weight 108.86 kg gr2 / 240 lbs (R); Height 5 ft. 11 in. (180.34 cm) (R); Pain 6/10; 03/13 00:04 BP 157 / 98 (auto/); mgs 00:06 Pulse 80 MON; mgs 00:19 BP 142 / 80 (auto/); mgs 00:19 Pulse 84 MON; mgs 00:34 BP 134 / 84 (auto/); mgs 00:34 Pulse 70 MON; Pulse Ox 99% ; mgs 00:49 BP 133 / 83 (auto/); mgs 00:49 Pulse 66 MON; Pulse Ox 99% ; mgs 01:04 BP 137 / 88 (auto/); mgs 01:04 Pulse 70 MON; Pulse Ox 97% ; mgs 01:19 BP 127 / 77 (auto/); mgs 01:19 Pulse 70 MON; Pulse Ox 97% ; mgs 01:34 BP 133 / 81 (auto/); mgs 01:34 Pulse 70 MON; Pulse Ox 96% ; mgs 01:49 BP 122 / 78 (auto/); mgs 01:49 Pulse 66 MON; Pulse Ox 98% ; mgs 02:04 BP 124 / 87 (auto/); mgs 02:04 Pulse 72 MON; Pulse Ox 96% ; mgs 02:19 BP 132 / 74 (auto/); mgs 02:19 Pulse 66 MON; mgs 02:20 BP 134 / 81 (auto/); mgs 02:20 Pulse 60 MON; mgs 02:22 BP 134 / 87; Pulse 60; Resp 18; Temp 97.6(TE); Pulse Ox 98% on R/A; Pain 0/10; jmv 08 23:48 Body Mass Index 33.47 (108.86 kg, 180.34 cm) gr2 MDM: 00:02 ECG WITH READING ER PHYS+CARDIAG ordered. EDMS 00:21 Mounter/Pulse Ox/q 30 min VS ordered. mm11 00:21 IV Saline Lock ordered. mm11 00:21 Rhythm Strip to chart ordered. mm11 00:21 Undress patient appropriately for examination ordered. mm11 00:21 Basic Metabolic Profile Ordered. EDMS 00:22 CBC with Diff Ordered. EDMS 00:22 Cardiac Injury Profile Ordered. EDMS 00:22 D-Dimer Quant Ordered. EDMS 00:22 Troponin Ordered. EDMS 00:22 Chest, 2 View (pa\E\lat) Ordered. EDMS 00:48 Financial registration complete. [facility] 01:06 [facility] Payment Agreement was scanned into [employer] and attached to record. [facility] 01:08 Basic Metabolic Profile Reviewed. mm11 01:08 CBC with Diff Reviewed. mm11 01:08 Cardiac Injury Profile Reviewed. mm11 01:08 D-Dimer Quant Reviewed. mm11 01:08 Troponin Reviewed. 11 11:44 T-Sheet-- Draft Copy was scanned into MED[employer] and attached to record. gb 11:45 ECG/EKG was scanned into [employer] and attached to record. gb 11:45 Trend VS was scanned into [employer] and attached to record. gb Signatures: Dispatcher [employer] EDMS Lissy Aquino, Reg Reg gb [place] Simms, DO DO [facility] Fadumo Forbes [facility] Houston Chu,RN RN mgs Jennifer McarthurRN RN af2 The chart was reviewed and I authenticate all verbal orders and agree with the evaluation and treatment provided.Attachments: 01:06 [facility] Payment Agreement [facility] 11:44 T-Sheet-- Draft Copy gb 11:45 ECG/EKG gb Chart Complete MTDD
== END 2016-03-13 02:30 | disposition home or self-care (01) ==
LOC: M ED 23:45
DX: R07.89 Other chest pain (principal); I10 Essential (primary) hypertension; G93.5 Compression of brain; M54.30 Sciatica, unspecified side; Z87.442 Personal history of urinary calculi; Z72.0 Tobacco use; Z79.891 Long term (current) use of opiate analgesic; Z79.899 Other long term (current) drug therapy; Z91.030 Bee allergy status

== ENCOUNTER 2016-07-13 20:35 | Emergency (ER) | payer OTHER, SELFPAY ==
[~2016-07-13] VITALS: Ht 182.9 cm; Wt 111.1 kg
[2016-07-13] MEDS ORDERED: IBUP600T26 PO (20:43)
[2016-07-13] MEDS ORDERED: MELO7.5T6 PO (20:43)
[2016-07-13] MEDS ORDERED: NORC1TAB4 PO (20:44)
[2016-07-13] MEDS ORDERED: diazePAM 5 MG TAB PO ONE (22:30)
[2016-07-13] MEDS ORDERED: GABAPENTIN 300 MG CAP PO ONE (22:30)
[2016-07-13] MEDS ORDERED: KETOROLAC 60 MG/2 ML VIAL (J1885) IM ONE (22:30)
[2016-07-13] MEDS ORDERED: VALI5TAB PO (22:50)
[2016-07-13] MEDS ORDERED: IBUP80TA PO (22:50)
[2016-07-13] MEDS ORDERED: NEUR300C PO (22:50)
[2016-07-13 23:09] VITALS: BP 155/99
== END 2016-07-13 23:11 | disposition home or self-care (01) ==
LOC: M ED 22:15
DX: S39.012A Strain of muscle, fascia and tendon of lower back, initial encounter (principal); M54.41 Lumbago with sciatica, right side; M54.42 Lumbago with sciatica, left side; X50.0XXA Overexertion from strenuous movement or load, initial encounter; Y92.9 Unspecified place or not applicable; Y93.89 Activity, other specified; Y99.9 Unspecified external cause status; M51.9 Unspecified thoracic, thoracolumbar and lumbosacral intervertebral disc disorder; I10 Essential (primary) hypertension; Z87.442 Personal history of urinary calculi; Z86.73 Personal history of transient ischemic attack (TIA), and cerebral infarction without residual deficits; Z79.899 Other long term (current) drug therapy; Z91.030 Bee allergy status; J30.1 Allergic rhinitis due to pollen
CPT/HCPCS: 96372; 99282; J1885

== ENCOUNTER → 2016-08-09 | Outpatient (CLI) | payer OTHER ==
[~2016-08-09] MED LIST changes: +IBUP600T26 PO; +IBUP80TA PO; +MELO7.5T6 PO; +NEUR300C PO; +NORC1TAB4 PO; +VALI5TAB PO
--- NOTE | 2016-08-09 15:30 | REP ---
MRI LUMBAR SPINE WITHOUT CONTRAST: HISTORY: Back pain. Decreased signal intensity on T2-weighted images is present in the L3-4 through L5-S1 intervertebral discs. The discs are decreased in height. These findings are consistent with disc degeneration. A diffuse disc bulge is present at the L1-2 level. There is minimal compression of the thecal sac. The L1 nerves exit the neural foramina without compression. A diffuse disc bulge is present at the L2-3 level. There is minimal compression of the thecal sac. The L2 nerves exit the neural foramina without compression. A diffuse disc bulge and small central disc protrusion are present at the L3-4 level. There is minimal compression of the thecal sac. The L3 nerves exit the neural foramina without compression. A diffuse disc bulge and small central disc extrusion are present at the L4-5 level. There is inferior migration of disc material. There is mild compression of the thecal sac. There is hypertrophy of the posterior articulating facets. The L4 nerves exit the neural foramina without compression. A diffuse disc bulge and small central disc protrusion are present at the L5-S1 level. There is minimal compression of the thecal sac. There is hypertrophy of the posterior articulating facets. The L5 nerves exit the neural foramina without compression. The conus medullaris is normal in appearance terminating at the level of the L1-2 intervertebral disc. Normal signal intensity is present in the lumbar vertebral bodies. IMPRESSION: 1. Diffuse disc bulges at the L1-2 and L2-3 levels with minimal thecal sac compression. 2. Diffuse disc bulge and small central disc protrusion at the L3-4 and L5-S1 levels with minimal thecal sac compression. 3. Diffuse disc bulge and small central disc extrusion at the L4-5 level with mild thecal sac compression. Signed by Levi Rosas MD 08/09/2016 03:33 P
== END ==
LOC: M RAD 13:48
PROVIDERS: ATTEND Physician Assistant Medical
DX: M54.5 Low back pain (principal)

== ENCOUNTER → 2016-08-16 | Outpatient (CLI) | payer OTHER ==
--- NOTE | 2016-08-17 04:52 | REP ---
Clinical: Obesity. Back pain . Technique: AP, lateral, bilateral oblique, and coned-down views. Findings: Alignment and lordosis is maintained. The vertebral bodies including transverse process and spinous processes are intact and normal. There is no evidence for acute fracture / compression injury or subluxation. No evidence for spondylolysis or spondylolisthesis. No significant degenerative change is noted. Impression: Normal age appropriate lumbosacral spine radiograph series. Signed by Martinez Teague MD 08/17/2016 04:44 A
--- NOTE | 2016-08-17 04:53 | REP ---
Clinical: Obesity. Neck pain . Technique: AP, lateral, flexion/extension, bilateral oblique, and open-mouth views. Findings: Alignment and lordosis is maintained. There is no evidence for acute fracture / compression injury or subluxation. No significant degenerative changes are appreciated. Oblique views demonstrate patent neural foramen. Open mouth view demonstrates normal C1-C2 articulation and odontoid process. Impression: Normal cervical spine series. Signed by Martinez Teague MD 08/17/2016 04:45 A
== END ==
LOC: M LAB 15:21
PROVIDERS: ATTEND Neurological Surgery
DX: E66.9 Obesity, unspecified (principal)

== ENCOUNTER → 2016-08-16 | Outpatient (CLI) | payer OTHER ==
[2016-08-16 17:02] LABS: BASO % 0.6 % (0.0-1.0); EOS # 0.1 K/mm3 (0.0-0.50); LYMPH # 2.4 K/mm3 (1.5-4.5); LYMPH % 33.8 % (24.0-44.0); MEAN CORPUSCULAR HEMOGLOBIN 31.8 pg (27.0-33.0); MEAN CORPUSCULAR HGB CONC 34.3 g/dl (32.0-36.5); MEAN CORPUSCULAR VOLUME 92.6 fl (80.0-96.0); MONO # 0.3 K/mm3 (0.0-0.8); MONO % 3.7 % (0.0-5.0); NEUTROPHILS # 4.1 K/mm3 (1.8-7.7); NEUTROPHILS % 58.8 % (36.0-66.0); RED CELL DISTRIBUTION WIDTH 13.2 % (11.5-14.5)
[2016-08-16 17:21] LABS: FOLATE 20.3 NG/ML; VITAMIN B12 LEVEL 277 PG/ML
[2016-08-16 17:24] LABS: ALBUMIN 3.8 GM/DL (3.2-5.2); ALBUMIN/GLOBULIN RATIO 1.31 (1.00-1.93); ALKALINE PHOSPHATASE 47 U/L (45-117); ALT/SGPT 52 U/L (12-78); ANION GAP 9 MEQ/L (8-16); AST/SGOT 29 U/L (15-37); BILIRUBIN,TOTAL 0.5 MG/DL (0.2-1.0); BLOOD UREA NITROGEN 15 MG/DL (7-18); CALCIUM LEVEL 8.4 MG/DL (8.5-10.1); CARBON DIOXIDE LEVEL 24 MEQ/L (21-32); CHLORIDE LEVEL 105 MEQ/L (98-107); CREATININE FOR GFR 0.97 MG/DL (0.70-1.30); GLOMERULAR FILTRATION RATE > 60.0 (>60); GLUCOSE, FASTING 147 MG/DL (70-105); POTASSIUM SERUM 3.7 MEQ/L (3.5-5.1); SODIUM LEVEL 138 MEQ/L (136-145); TOTAL PROTEIN 6.7 GM/DL (6.4-8.2)
[2016-08-17 13:56] LABS: ALBUMIN % 61.7 % (55.8-66.1); GAMMA GLOBULIN % 14.5 % (11.1-18.8)
[2016-08-17 13:57] LABS: ALBUMIN 4.13 GM/DL (3.29-5.55)
[2016-08-19 00:07] LABS: Lyme Disease IgG/IgM Antibodie <0.91 ISR (0.00-0.90); Lyme Disease IgM Ab Quantitati <0.80 index (0.00-0.79); SJOGREN'S ANTI SS-A <0.2 AI (0.0-0.9); SJOGREN'S ANTI SS-B <0.2 AI (0.0-0.9)
== END ==
LOC: M LAB 15:18
PROVIDERS: ATTEND Physician Assistant Medical
DX: M54.5 Low back pain (principal)

== ENCOUNTER → 2016-08-29 | Outpatient (CLI) | payer OTHER ==
--- NOTE | 2016-08-29 16:00 | REP ---
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 . Comparison study: Comparison CT study is from October 21, 2007. Technique: Axial and sagittal imaging planes are utilized for T1 and T2-weighted scans. Sequences include spin-echo, fast spin echo, FLAIR, and diffusion weighted sequences. MRI findings: No bony calvarial lesion is seen. Craniocervical junction and upper cervical cord are normal in appearance. There is no MR evidence of significant paranasal sinus disease. A mucous retention cyst is seen in the floor of the left maxillary sinus. No intraorbital abnormality is seen. The lateral, third, and fourth ventricles are normal in size and position. Pérez-white differentiation pattern is intact above and below the tentorium. There is no evidence of intracranial hemorrhage. No mass, infarction, extra-axial fluid collection or midline shift is seen. No abnormal white matter lesion is seen. Impression: Negative noncontrast brain MRI study. Signed by Brandon Akins MD 08/29/2016 03:51 P
--- NOTE | 2016-08-29 17:00 | REP ---
REASON FOR EXAM: Headaches. COMPARISON: Cervical spine MRI none. The cranial vertebral junction is within normal limits. There is abnormal linear T2 hypersignal in the cervical cord from the superior endplate of C6 to the inferior endplate of C7. Having a length of approximately 3.3 cm and a maximal width of approximately 4 mm and an AP dimension of approximately 3 mm. No other cord signal abnormalities are noted. The cervical spine vertebral body height and alignment is within normal limits. The disc spaces are of normal height and appear normal hydrated. The facet joints are well aligned bilaterally. The C2-3 level was not imaged. The C3-4 level, there is no disc herniation, foraminal narrowing, or central canal stenosis. At the C4-5 level there is no disc herniation, or foraminal narrowing or central canal stenosis. At the C5-6 level there is a minimal broad based annular bulge. There is no disc herniation, foraminal narrowing or central canal stenosis. Note is again made of the aforementioned hypersignal in the spinal cord. At the C6-7 level there is no disc herniation or foraminal narrowing of central canal stenosis. Note is again made of aforementioned hypersignal in the spinal cord. At the C7-T1 level the aforementioned hypersignal in the spinal cord is nearly not existent. There is no disc herniation, foraminal narrowing, or central canal stenosis. 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 Signed by Jamir Cuellar DO 08/30/2016 11:21 A
== END ==
LOC: M RAD 14:07
PROVIDERS: ATTEND Neurological Surgery
DX: G95.0 Syringomyelia and syringobulbia (principal); M00-M99 Diseases of the musculoskeletal system and connective tissue

== ENCOUNTER → 2016-09-25 | Outpatient (CLI) | payer OTHER ==
[~2016-09-25] MED LIST changes: -CELE-19 PO; +CELE1CAP4 PO; +IBUP-1022 PO; -IBUP600T26 PO; -MELO7.5T6 PO; +MELO7.5T7 PO; -ULTR50TA PO; +ULTR50TA8 PO
[2016-09-25 16:41] LABS: ALBUMIN/GLOBULIN RATIO 1.21 (1.00-1.93); ALKALINE PHOSPHATASE 54 U/L (45-117); ALT/SGPT 37 U/L (12-78); ANION GAP 7 MEQ/L (8-16); AST/SGOT 23 U/L (15-37); BILIRUBIN,TOTAL 0.7 MG/DL (0.2-1.0); BLOOD UREA NITROGEN 21 MG/DL (7-18); CALCIUM LEVEL 9.1 MG/DL (8.5-10.1); CARBON DIOXIDE LEVEL 26 MEQ/L (21-32); CHLORIDE LEVEL 107 MEQ/L (98-107); CREATININE FOR GFR 0.84 MG/DL (0.70-1.30); GLOMERULAR FILTRATION RATE > 60.0 (>60); GLUCOSE, FASTING 98 MG/DL (70-105); POTASSIUM SERUM 4.2 MEQ/L (3.5-5.1); SODIUM LEVEL 140 MEQ/L (136-145); TOTAL PROTEIN 7.3 GM/DL (6.4-8.2)
== END ==
LOC: M LAB 15:17
PROVIDERS: ATTEND Physician Assistant Medical
DX: E27.8 Other specified disorders of adrenal gland (principal)

== ENCOUNTER 2016-09-26 13:00 | Outpatient (RCR) | payer OTHER | END 2016-10-02 | disposition home or self-care (01) | LOC: M PT 13:00 | PROVIDERS: ATTEND Physician Assistant Medical | DX: M54.5 Low back pain (principal) ==

== ENCOUNTER 2016-10-04 19:04 | Emergency (ER) | payer OTHER ==
[~2016-10-04] VITALS: Ht 180.3 cm; Wt 109.0 kg
[2016-10-04 19:05] VITALS: BP 145/83
[2016-10-04] MEDS ORDERED: VALI5TAB PO (21:15)
[2016-10-04] MEDS ORDERED: diazePAM 5 MG TAB PO ONE (21:15)
[2016-10-04] MEDS ORDERED: ONDANSETRON 4 MG ORAL DISINTEGRATING TAB (S0181) PO ONE (21:15)
[2016-10-04] MEDS ORDERED: MORPHINE 4 MG/ML 1ML SYRINGE IM ONE (21:15)
== END 2016-10-04 22:07 | disposition home or self-care (01) ==
LOC: M ED 19:04
DX: M51.36 Other intervertebral disc degeneration, lumbar region (principal); M54.31 Sciatica, right side; Z86.73 Personal history of transient ischemic attack (TIA), and cerebral infarction without residual deficits; Z87.442 Personal history of urinary calculi; Z91.030 Bee allergy status; Z79.899 Other long term (current) drug therapy

== ENCOUNTER 2016-10-18 16:00 | Outpatient (RCR) | payer OTHER | END 2016-11-02 | LOC: M PT 16:00 | PROVIDERS: ATTEND Physician Assistant Medical | DX: Z51.89 Encounter for other specified aftercare (principal); M54.5 Low back pain ==

== ENCOUNTER → 2016-11-01 | Outpatient (CLI) | payer OTHER ==
--- NOTE | 2016-11-17 00:38 | ECWPNPC ---
PATIENT NAME: VANESSA ELENA : 1980 GENDER: MALE VISIT DATE: 11/01/2016 DISCHARGE DATE: 11/01/16 1642 VISIT LOCKED DATE TIME: PHYSICIAN: ZENA GUILLORY RESOURCE: ZENA GUILLORY REASON FOR APPOINTMENT 1. NECK/BACK HISTORY OF PRESENT ILLNESS HISTORY OF PRESENT ILLNESS: PAIN THE PATIENT DESCRIBES THE PAIN... FALL RISK SCREENING: SCREENING :NO FALLS IN THE PAST YEAR TODAY'S VISIT: NOTES: REFERRED BY DR PATRICIA ARTIS FOR CHRONIC LOW BACK PAIN . PCP IS Sarah STEVEN PA-C. ONSET WAS A CHILD WHEN HE FELL OUT OF A TREE, AND SINCE HAS BEEN VERY ACTIVE WITH WORK. IN MID S HAS BEGUN TO HAVE PAIN SO BAD IT STOPS HIM FROM FUNCTIONING. HAD EPISODE OF INTENSE POPPING IN LOW BACK. CAN NOT LEAN FORWARD HAD PAIN OVER THE CENTER SPINE, AND THIS IS FOLLOWED BY SEVERE MUSCLE SPASMS. HAS NERVE PAIN FIRING DOWN LEGS, RIGHT MORE THAN LEFT. HAS INTENSE SENSE OF ACHING WITH ACTIVITY. IS HAVING NERVE PAIN AND N/T IN RIGHT ANKLE AND ALONG RIGHT LEG. HAS ATTENEDED PT WHICH WAS HELPFUL AND HE CONTINUES HEP. HAS HAD INJECTIONS MIGUEL ANGEL WITH DR SOTO. WAS ON SEVERAL MEDS.. CURRENT MEDICATIONS TAKING FLONASE 50 MCG/DOSE INHALER 1 SPRAY IN EACH NOSTRIL NASALLY ONCE A DAY TAKING ZYRTEC 10 MG TABLET 1 TABLET NEEDED ORALLY ONCE A DAY TAKING FLOMAX 0.4 MG CAPSULE EXTENDED RELEASE 24 HOUR 1 CAPSULE 30 MINUTES AFTER THE SAME MEAL EACH DAY ORALLY ONCE A DAY TAKING CELEBREX 200 MG CAPSULE 1 CAPSULE WITH FOOD ORALLY ONCE A DAY TAKING GABAPENTIN 300 MG CAPSULE 1 CAPSULE ORALLY THREE TIMES A DAY TAKING VICODIN ES 7.5-300 MG TABLET 1 TABLET NEEDED ORALLY EVERY 6 HRS TAKING MAGNESIUM 200 MG TABLET 2 TABLETS WITH A MEAL ORALLY ONCE A DAY TAKING VITAMIN B-2 25 MG TABLET 1 TABLET WITH A MEAL ORALLY ONCE A DAY TAKING VITAMIN D (ERGOCALCIFEROL) 35895 UNIT CAPSULE 1 CAPSULE ORALLY TAKING LISINOPRIL 40 MG TABLET 1 TABLET ORALLY ONCE A DAY TAKING CYCLOBENZAPRINE HCL 5 MG TABLET 1 TABLET NEEDED ORALLY THREE TIMES A DAY NOT-TAKING CARLOZ ALLERGY 60 MG TABLET 1 TABLET ORALLY TWICE A DAY NOT-TAKING IBUPROFEN 800 MG TABLET 1 TABLET ORALLY THREE TIMES A DAY NOT-TAKING CEPHALEXIN 500 MG CAPSULE 1 CAPSULE ORALLY TWICE A DAY NOT-TAKING ZOFRAN 4 MG TABLET 2 TABLETS ORALLY ONCE A DAY MEDICATION LIST REVIEWED AND RECONCILED WITH THE PATIENT PAST MEDICAL HISTORY SCIATICA KIDNEY STONE CHIARI MALFORMATION ALLERGIES BEES: ANAPHYLAXIS: ALLERGY SURGICAL HISTORY EAR TUBES CHILD FAMILY HISTORY FATHER: ALIVE MOTHER: ALIVE, DM, BI-POLAR, SCIATICA 5 BROTHER(S) , 8 SISTER(S) - HEALTHY. NO KNOWN FAMILY HISTORY OF ANY UROLOGICALLY RELATED DISEASES/CANCERS. SOCIAL HISTORY GENERAL: TOBACCO USE ARE YOU A:FORMER SMOKER LUNG CANCER SCREENING SMOKING STATUS:FORMER SMOKER ALCOHOL SCREENING POINTS0 INTERPRETATIONNEGATIVE RECREATIONAL DRUG USE ACCEDES MARIJUANA USE WEEKLY. CAFFEINE 3 CUPS/DAY. 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 DIET: REGULAR. EXERCISE: ACTIVE. MARITAL STATUS: SINGLE. OTHERS AT HOME: S.O.. QUAKER NO PENTECOSTAL BELIEFS THAT WOULD IMPACT HEALTH CARE. LANGUAGE BURMESE. ADVANCE DIRECTIVES HEALTH CARE PROXY?NO WOULD YOU LIKE MORE INFORMATION?NO DO YOU HAVE A DNR?NO WOULD YOU LIKE MORE INFORMATION?NO LIVING WILL?NO WOULD YOU LIKE MORE INFORMATION?NO POWER OF DIESEL SERVICE TECHNICIAN?NO TRAVEL OUTSIDE US: DENIES. DOMESTIC VIOLENCE NONE. HOSPITALIZATION/MAJOR DIAGNOSTIC PROCEDURE PNEUMONIA X 3 REVIEW OF SYSTEMS REVIEWED BY: PROVIDER: ZENA MORRISON . CONSTITUTIONAL: ANY CHANGE IN YOUR MEDICAL CONDITION? NO . CHILLS NO . FEVER NO . INFECTION: DO YOU HAVE NEW INFECTIONS? NO . DO YOU HAVE HISTORY OF MRSA? NO . MUSCULOSKELETAL: ANY NEW PATTERNS OF PAIN OR NUMBNESS? NO . GASTROENTEROLOGY: ANY NEW CHANGE IN BOWEL CONTROL? NO . GENITOURINARY: ANY NEW CHANGE IN BLADDER CONTROL? NO . IS THERE A CHANCE YOU COULD BE ? NO . HEMATOLOGY/LYMPH: DO YOU TAKE ANY BLOOD THINNERS? (FOR EXAMPLE- COUMADIN, PLAVIX, AGGRENOX, PLATEL, PRADAXA, OR XARELTO) NO . WHEN WAS YOUR LAST DOSE? DATE: TIME: . NEUROLOGY: HAVE YOU FALLEN IN THE PAST 6 MONTHS? NO . ANY NEW EXTREMITY NUMBNESS OR WEAKNESS? NO . HEADACHE HEADACHE - POSSIBLE ARNOLD CHIARI MALFORMATION. HX OF MIGRSINES A TEEN . CARDIOLOGY: DO YOU HAVE A PACEMAKER OR DEFIBRILLATOR? NO . HIGH BLOOD PRESSURE ON MEDS . RESPIRATORY: HAVE YOU BEEN SICK IN THE PAST WEEK? NO . FEVER NO . FLU LIKE SYMPTOMS? NO . COUGH NO . INTEGUMENTARY: DO YOU HAVE ANY RASHES OR OPEN SORES? SCALEY RASH ON ARMS -BEING SCHEDULED FOR RHEUMATOLGY EVAL . ALLERGIC/IMMUNO: ARE YOU ALLERGIC TO SHELLFISH OR IV DYE? NO . ANY NEW ALLERGIES? NO . PSYCHIATRIC: DO YOU HAVE THOUGHTS OF HURTING YOURSELF OR SOMEONE ELSE? NO . ARE YOU ABUSED, NEGLECTED, OR IN AN UNSAFE ENVIRONMENT? NO . ENDOCRINOLOGY: ARE YOU DIABETIC? NO . OTHER: DO YOU NEED ANY PRESCRIPTIONS? NO . IF YES, PLEASE LIST: ____ . ANY NEW PROBLEMS WITH YOUR MEDICATIONS? NO . WHEN DID YOU LAST EAT? ____ . WHEN DID YOU LAST DRINK? ____ . WHAT DID YOU LAST DRINK? ____ . NAME OF PERSON DRIVING YOU HOME? ____ . DO YOU HAVE ANY OTHER QUESTIONS OR CONCERNS NO . UROLOGY: GENERAL RECURRENT KIDNEY STONES . VITAL SIGNS WT 261 LBS, HT 6', BMI 35.39 INDEX, BP 131/97 MM HG, HR 69 /MIN, RR 18 /MIN, TEMP 98.4 F, OXYGEN SAT % 96, REVIEWED BY: EM. EXAMINATION GENERAL EXAMINATION: PSYCHALERT , ORIENTED X 3 , APPROPRIATE MOOD AND AFFECT . HEENT:NORMOCEPHALIC, NO LYPHADENOPATHY, NO THYROMEGLY. LUNGS:NO WHEEZES, RHONCHI, RALES, , COUGH, CLEAR TO AUSCULTATION BILATERALLY. HEART:S1, S2 IN A REGULAR RATE AND RHYTHM. NO SIGNIFICANT MURMURS, RUBS OR GALLOPS NOTED. MUSCULOSKELETAL:VERY POOR RANGE OF MOTION WITH INTERNAL ROTATION AT HIPS. DIFF WITH HEEL WALK. RLE WEAKNESS, POINT TENDERNESS OVER LUMBAR SPINOUS PROCESSES AND RIGHT>LEFT LUMBOSACRAL AXIS.POINT TENDERNESS OVER LEFT SIJ . FLAT FEET NOTED BILATERALLY. SLR POSITIVE AT 20 DEGREES ON RIGHT, 40 DEGREES ON LEFT. CAN FLEX TO 45 DEGREEES, EXTEND TO 10 DEGREES.. NEUROLOGIC EXAM:CN'S II-XII GROSSLY INTACT, DECCREASED SENSATION RIGHT LOWER EXTREMITIY DTR'S TRACE - 1= BILATERALLY AT KNEE - NO ANKLE JERKS, NO PLANTAR RESPONSE. NO CLONUS. DIAGNOSTIC TESTS REVIEWEDMRI OF LUMBAR SPINE REVIEWED - PER RADIOLOGIST HAS DFFUSE DISC BULGE AT L1-2 AND L2-3 WITH MINIMAL THECAL SAC COMPRESSION. THERE IS DIFFISE DISC BULGE AND SMALL CENTRAL DISC PROTRUSION AT L3-4 AND L5-S1. DIFFUSE DISC BULGE AND SMALL CENTRAL DISC EXTREUSION NOTED AT L4-5. . ASSESSMENTS LUMBAR DISC DISPLACEMENT WITHOUT MYELOPATHY - M51.26 (PRIMARY) LUMBAR RADICULOPATHY - M54.16 TREATMENT LUMBAR DISC DISPLACEMENT WITHOUT MYELOPATHY NOTES: RECOMMEND INCREASE OF GABAPENTIN TO 400 MG UP TO 3TIMES PER DAY. RECOMMEND RIGHT L4-5 AND L5-S1 TRANSFORAMINAL EPIDURAL. CONSIDER CYMBALTA,WHAT IS LUMBAR EPIDURAL INJECTION? MATERIAL WAS PRINTED, REVIEWED AND GIVEN TO PT. CLINICAL NOTES: CYMBALTA INFORMATION PRINTED, REVIEWED AND GIVEN TO PT. PROCEDURE CODES FA211 ESTABILISHED PATIENT [facility] CHARGE DISPOSITION & COMMUNICATION FOLLOW UP AFTER INJECTION (REASON: CHECK AUTH RIGHT L4-5 AND L5-S1 TRANSFORAMINAL EPIDURAL) ELECTRONICALLY SIGNED BY LUDY MAHAJAN ON 11/16/2016 AT 05:41 PM EDT DISCLAIMER : THIS IS A VISIT SUMMARY EXTRACTED FROM THE [facility] CHART. IT IS NOT A COPY OF THE [facility] PROGRESS NOTE. AYANNA
== END ==
LOC: M PAIN 14:00
PROVIDERS: ATTEND Nurse Practitioner Family
DX: M51.26 Other intervertebral disc displacement, lumbar region (principal); M54.16 Radiculopathy, lumbar region; Z79.891 Long term (current) use of opiate analgesic; Z87.891 Personal history of nicotine dependence; Z91.030 Bee allergy status

== ENCOUNTER → 2016-12-14 | Outpatient (CLI) | payer OTHER | LOC: M PAIN 14:30 | PROVIDERS: ATTEND Nurse Practitioner Family | DX: M51.26 Other intervertebral disc displacement, lumbar region (principal); M54.16 Radiculopathy, lumbar region; Z79.899 Other long term (current) drug therapy; Z91.030 Bee allergy status ==

== ENCOUNTER 2017-02-04 20:14 | Emergency (ER) | payer OTHER ==
[~2017-02-04] VITALS: Ht 180.3 cm; Wt 111.4 kg
[2017-02-04] MEDS ORDERED: CELE1CAP9 PO (20:24)
[2017-02-04] MEDS ORDERED: VITA1CAP40 PO (20:24)
[2017-02-04] MEDS ORDERED: CYCL10TA PO (20:24)
[2017-02-04] MEDS ORDERED: MORPHINE 2 MG/ML 1ML SYRINGE IV ONE (21:45)
[2017-02-04] MEDS ORDERED: ONDANSETRON 4MG/2ML VIAL (J2405) IV ONE (21:45)
[2017-02-04 22:09] LABS: BASO % 0.3 % (0.0-1.0); EOS # 0.1 10^3/uL (0.0-0.50); EOS % 1.2 % (0.0-3.0); IMMATURE GRANULOCYTE % 0.3 % (0-0); LYMPH # 3.1 10^3/uL (1.5-4.5); LYMPH % 32.8 % (24.0-44.0); MEAN CORPUSCULAR HEMOGLOBIN 30.9 pg (27.0-33.0); MEAN CORPUSCULAR HGB CONC 34.5 g/dl (32.0-36.5); MEAN CORPUSCULAR VOLUME 89.4 fl (80.0-96.0); MONO # 0.8 10^3/uL (0.0-0.8); MONO % 8.2 % (0.0-5.0); NEUTROPHILS # 5.4 10^3/uL (1.8-7.7); NEUTROPHILS % 57.2 % (36.0-66.0); PLATELET COUNT, AUTOMATED 277 10^3/uL (150-450); RED CELL DISTRIBUTION WIDTH 12.6 % (11.5-14.5); WHITE BLOOD COUNT 9.4 10^3/uL (4.0-10.0)
[2017-02-04 22:37] LABS: ALBUMIN 3.7 GM/DL (3.2-5.2); ALBUMIN/GLOBULIN RATIO 0.93 (1.00-1.93); ALKALINE PHOSPHATASE 62 U/L (45-117); ALT/SGPT 37 U/L (12-78); ANION GAP 4 MEQ/L (8-16); AST/SGOT 24 U/L (7-37); BILIRUBIN,DIRECT 0.1 MG/DL (0.0-0.2); BILIRUBIN,TOTAL 0.6 MG/DL (0.2-1.0); BLOOD UREA NITROGEN 17 MG/DL (7-18); CARBON DIOXIDE LEVEL 30 MEQ/L (21-32); CHLORIDE LEVEL 106 MEQ/L (98-107); CREATININE FOR GFR 0.98 MG/DL (0.70-1.30); GLOMERULAR FILTRATION RATE > 60.0 (>60); GLUCOSE, FASTING 84 MG/DL (70-105); SODIUM LEVEL 140 MEQ/L (136-145); TOTAL PROTEIN 7.7 GM/DL (6.4-8.2)
--- NOTE | 2017-02-04 22:50 | REPUSA ---
Clinical history: Right upper quadrant pain. Findings: The pancreas is limited in visualization secondary to overlying bowel gas. The liver demons trates uniform echotexture and echogenicity, with no mass lesions. The gallbladder is unremarkable. T he common bile duct measures 4 mm and is within normal limits. There is no ascites. The right kidney measures 9.7 cm in length and is unremarkable. Impression: Unremarkable ultrasound examination of the right upper quadrant.
[2017-02-04] MEDS ORDERED: OMEP40CA2 PO (23:40)
[2017-02-04] MEDS ORDERED: NORCOTAB PO (23:40)
[2017-02-04] MEDS ORDERED: NORCO 5/325MG TABLET (BULK FOR ED) PO ONE (23:45)
[2017-02-05 00:22] VITALS: BP 136/86
== END 2017-02-05 00:24 | disposition home or self-care (01) ==
LOC: M ED 20:14
DX: K21.9 Gastro-esophageal reflux disease without esophagitis (principal); K80.51 Calculus of bile duct without cholangitis or cholecystitis with obstruction; I10 Essential (primary) hypertension; Z87.442 Personal history of urinary calculi; J30.1 Allergic rhinitis due to pollen; F17.200 Nicotine dependence, unspecified, uncomplicated; Z79.899 Other long term (current) drug therapy
CPT/HCPCS: 76705; 80048; 80076; 81001; 83690; 85025; 96374; 96375; 99284; J2405

== ENCOUNTER → 2017-03-06 | Outpatient (CLI) | payer OTHER ==
[2017-03-06 19:14] LABS: BASO % 0.4 % (0.0-1.0); EOS # 0.2 10^3/uL (0.0-0.50); EOS % 2.2 % (0.0-3.0); HEMATOCRIT 45.2 % (42.0-52.0); HEMOGLOBIN 15.8 g/dl (14.0-18.0); IMMATURE GRANULOCYTE # 0.1 10^3/uL (0-0); IMMATURE GRANULOCYTE % 0.9 % (0-0); LYMPH # 3.5 10^3/uL (1.5-4.5); LYMPH % 37.7 % (24.0-44.0); MEAN CORPUSCULAR VOLUME 88.8 fl (80.0-96.0); MONO # 0.6 10^3/uL (0.0-0.8); MONO % 6.5 % (0.0-5.0); NEUTROPHILS # 4.8 10^3/uL (1.8-7.7); NEUTROPHILS % 52.3 % (36.0-66.0); PLATELET COUNT, AUTOMATED 267 10^3/uL (150-450); RED BLOOD COUNT 5.09 10^6/uL (4.30-6.10); WHITE BLOOD COUNT 9.2 10^3/uL (4.0-10.0)
[2017-03-06 19:53] LABS: ALBUMIN/GLOBULIN RATIO 1.25 (1.00-1.93); ALKALINE PHOSPHATASE 54 U/L (45-117); ALT/SGPT 31 U/L (12-78); ANION GAP 6 MEQ/L (8-16); AST/SGOT 19 U/L (7-37); BILIRUBIN,TOTAL 0.5 MG/DL (0.2-1.0); BLOOD UREA NITROGEN 10 MG/DL (7-18); CALCIUM LEVEL 8.7 MG/DL (8.5-10.1); CARBON DIOXIDE LEVEL 28 MEQ/L (21-32); CHLORIDE LEVEL 107 MEQ/L (98-107); CREATININE FOR GFR 0.81 MG/DL (0.70-1.30); GLOMERULAR FILTRATION RATE > 60.0 (>60); GLUCOSE, FASTING 106 MG/DL (70-105); LIPASE 138 U/L (73-393); POTASSIUM SERUM 4.2 MEQ/L (3.5-5.1); SODIUM LEVEL 141 MEQ/L (136-145); TOTAL PROTEIN 7.2 GM/DL (6.4-8.2)
== END ==
LOC: M LAB 18:21
DX: R10.11 Right upper quadrant pain (principal)

== ENCOUNTER → 2017-03-20 | Outpatient (CLI) | payer OTHER | LOC: M RAD 08:20 | DX: R10.11 Right upper quadrant pain (principal) | CPT/HCPCS: J2805 ==

== ENCOUNTER → 2017-04-11 | Outpatient (CLI) | payer OTHER ==
[~2017-04-11] MED LIST changes: -CELE1CAP4 PO; -FLON1SPR; -GABA600T PO; -IBUP-1022 PO; -IBUP80TA PO; +ISOVUE-M 300 61% 15ML VIAL (Q9967) As Ordered; +LIDOCAINE 1% SDV INJ 30 ML VIAL As Ordered; -LISI40TAB PO; -MELO7.5T7 PO; -MIRA33504 PO; -MOBI15TA PO; -NEUR300C PO; -NORC1TAB4 PO; -OMEP40CA2 PO; -ROBA500T PO; -ULTR50TA8 PO; -VALI5TAB PO; -ZYRT10CA PO; +diazePAM 5 MG TAB As Ordered; +methylPREDNISolone SUSP 40 MG/ML (DEPO-medrol) VIAL (J1030) As Ordered; +oxyCODONE 5MG TAB As Ordered
== END ==
LOC: M PAIN 13:45
DX: G89.29 Other chronic pain (principal); M51.16 Intervertebral disc disorders with radiculopathy, lumbar region; Z79.899 Other long term (current) drug therapy; Z91.030 Bee allergy status
CPT/HCPCS: J1030

== ENCOUNTER → 2017-04-25 | Outpatient (CLI) | payer OTHER | LOC: M PAIN 15:15 | DX: M51.26 Other intervertebral disc displacement, lumbar region (principal); M79.1 Myalgia; Z79.899 Other long term (current) drug therapy; Z91.030 Bee allergy status; Z87.891 Personal history of nicotine dependence | CPT/HCPCS: G0463 ==

== ENCOUNTER 2017-05-04 15:30 | Emergency (ER) | payer OTHER ==
[2017-05-04] MEDS: ALBUTEROL SULFATE 2.5 MG/0.5 ML INH NEB SOLN NEB (16:37)
[2017-05-04] MEDS: ACETAMINOPHEN 325 MG TAB PO (16:37)
[2017-05-04 17:09] LABS: INFLUENZA A AMPLIFICATION NEGATIVE (NEGATIVE); INFLUENZA B AMPLIFICATION POSITIVE (NEGATIVE)
== END 2017-05-04 17:32 | disposition home or self-care (01) ==
LOC: M ED 15:30
DX: J10.1 Influenza due to other identified influenza virus with other respiratory manifestations (principal); Z86.73 Personal history of transient ischemic attack (TIA), and cerebral infarction without residual deficits; R51 Headache; K21.9 Gastro-esophageal reflux disease without esophagitis; Z87.442 Personal history of urinary calculi; M54.9 Dorsalgia, unspecified; M79.2 Neuralgia and neuritis, unspecified; M77.9 Enthesopathy, unspecified; F17.200 Nicotine dependence, unspecified, uncomplicated; Z79.899 Other long term (current) drug therapy; Z91.030 Bee allergy status
CPT/HCPCS: 71046

== ENCOUNTER 2017-08-21 13:33 | Emergency (ER) | payer OTHER ==
[2017-08-21] MEDS: TETRACAINE 0.5% OPHTH SOLN 4ML OU (14:15)
[2017-08-21] MEDS: LISSAMINE GREEN OPHTH 1.5 MG STRIP OU (14:15)
[2017-08-21] MEDS: CIPROFLOXACIN 0.3% OPHTH SOLN 2.5ML OS (14:52)
== END 2017-08-21 14:58 | disposition home or self-care (01) ==
LOC: M ED 13:33
DX: H20.012 Primary iridocyclitis, left eye (principal); I10 Essential (primary) hypertension; M54.9 Dorsalgia, unspecified; Z91.030 Bee allergy status; Z79.899 Other long term (current) drug therapy
CPT/HCPCS: 99283

== ENCOUNTER → 2017-09-01 | Outpatient (CLI) | payer OTHER | LOC: M RAD 14:56 | DX: M25.572 Pain in left ankle and joints of left foot (principal) | CPT/HCPCS: 73610 ==

== ENCOUNTER → 2017-10-03 | Outpatient (CLI) | payer OTHER | LOC: M PAIN 11:45 | DX: M54.81 Occipital neuralgia (principal); M51.26 Other intervertebral disc displacement, lumbar region; G43.709 Chronic migraine without aura, not intractable, without status migrainosus; Z79.899 Other long term (current) drug therapy; Z91.030 Bee allergy status; Z87.891 Personal history of nicotine dependence | CPT/HCPCS: G0463 ==

== ENCOUNTER → 2017-11-07 | Outpatient (CLI) | payer OTHER | LOC: M PAIN 11:00 | DX: M46.1 Sacroiliitis, not elsewhere classified (principal); M54.81 Occipital neuralgia; M51.26 Other intervertebral disc displacement, lumbar region; G43.709 Chronic migraine without aura, not intractable, without status migrainosus; F17.210 Nicotine dependence, cigarettes, uncomplicated; Z79.899 Other long term (current) drug therapy; Z91.030 Bee allergy status | CPT/HCPCS: G0463 ==

== ENCOUNTER → 2017-11-09 | Outpatient (REF) | payer OTHER | LOC: M LAB REF 12:25 | DX: L72.11 Pilar cyst (principal) | CPT/HCPCS: 88304 ==

== ENCOUNTER → 2018-01-09 | Outpatient (CLI) | payer OTHER ==
[~2018-01-09] MED LIST changes: +BUPIVACAINE HCL 0.25% 30 ML VIAL As Ordered; +TRIAMCINOLONE ACETONIDE SUSP 40 MG/ML VIAL (J3301) As Ordered; -methylPREDNISolone SUSP 40 MG/ML (DEPO-medrol) VIAL (J1030) As Ordered
== END ==
LOC: M PAIN 11:15
DX: M46.1 Sacroiliitis, not elsewhere classified (principal); M54.30 Sciatica, unspecified side; F17.210 Nicotine dependence, cigarettes, uncomplicated; Z87.442 Personal history of urinary calculi; Z91.030 Bee allergy status; Z79.899 Other long term (current) drug therapy
CPT/HCPCS: J3301

== ENCOUNTER → 2018-01-30 | Outpatient (CLI) | payer OTHER | LOC: M PAIN 14:30 | DX: M51.26 Other intervertebral disc displacement, lumbar region (principal); M79.7 Fibromyalgia; F17.210 Nicotine dependence, cigarettes, uncomplicated; Z79.899 Other long term (current) drug therapy; Z91.030 Bee allergy status | CPT/HCPCS: G0463 ==

== ENCOUNTER → 2018-03-20 | Outpatient (CLI) | payer OTHER ==
[~2018-03-20] MED LIST changes: +BUPIVACAINE HCL 0.25% 10 ML VIAL As Ordered ONE; -BUPIVACAINE HCL 0.25% 30 ML VIAL As Ordered; +BUPIVACAINE HCL 0.25% 30 ML VIAL As Ordered ONE; +CELE1CAP4 PO; +CELE1CAP9 PO; +CIPR0.3S OS; +CYCL10TA PO; +FLON1SPR; +GABA-845 PO; +GABA600T4 PO; +IBUP-1022 PO; +IBUP80TA PO; -ISOVUE-M 300 61% 15ML VIAL (Q9967) As Ordered; -LIDOCAINE 1% SDV INJ 30 ML VIAL As Ordered; +LISI40TAB PO; +MELO7.5T7 PO; +MIRA33504 PO; +MOBI15TA PO; +NEUR300C PO; +NORC1TAB4 PO; +NORCOTAB PO; +OMEP40CA2 PO; +OSEL75CA PO; +ROBA500T PO; -TRIAMCINOLONE ACETONIDE SUSP 40 MG/ML VIAL (J3301) As Ordered; +TRIAMCINOLONE ACETONIDE SUSP 40 MG/ML VIAL (J3301) As Ordered ONE; +ULTR50TA8 PO; +VALI5TAB PO; +VITA50005 PO; +ZYRT10CA PO; -diazePAM 5 MG TAB As Ordered; +diazePAM 5 MG TAB As Ordered ONE; -oxyCODONE 5MG TAB As Ordered; +oxyCODONE 5MG TAB As Ordered ONE
--- NOTE | 2018-04-08 00:57 | ECWPNPC ---
PATIENT NAME: VANESSA ELENA : 1980 GENDER: MALE VISIT DATE: 03/20/2018 DISCHARGE DATE: 03/20/18 1618 VISIT LOCKED DATE TIME: PHYSICIAN: BETTIE ALCANTAR MD RESOURCE: BETTIE ALCANTAR MD REASON FOR APPOINTMENT 1. TPI HISTORY OF PRESENT ILLNESS HISTORY OF PRESENT ILLNESS: PAIN THE PATIENT DESCRIBES THE PAIN... FALL RISK SCREENING: SCREENING :NO FALLS IN THE PAST YEAR CURRENT MEDICATIONS TAKING GABAPENTIN 600 MG TABLET 1 CAPSULE ORALLY THREE TIMES A DAY, NOTES: 03/20 829 TAKING CELEBREX 200 MG CAPSULE 1 CAPSULE WITH FOOD ORALLY ONCE A DAY, NOTES: 03/20 829 TAKING CARISOPRODOL 350 MG TABLET 1 TABLET NEEDED ORALLY BID MDD=2, NOTES: 03/20 829 TAKING DULOXETINE HCL 30 MG CAPSULE DELAYED RELEASE PARTICLES 1 CAPSULE ORALLY ONCE A DAY, NOTES: 03/20 829 TAKING OMEPRAZOLE 20 MG CAPSULE DELAYED RELEASE 1 CAPSULE ORALLY ONCE A DAY, NOTES: 03/20 829 TAKING FLONASE 50 MCG/DOSE INHALER 1 SPRAY IN EACH NOSTRIL NASALLY ONCE A DAY, NOTES: NONE RECENT TAKING ZYRTEC 10 MG TABLET 1 TABLET NEEDED ORALLY ONCE A DAY, NOTES: 03/20 829 TAKING LISINOPRIL 40 MG TABLET 1 TABLET ORALLY ONCE A DAY, NOTES: 03/20 829 TAKING EPIPEN 1 MG/ML DEVICE INTRAMUSCULAR NOT-TAKING TRAMADOL HCL 50 MG TABLET 1 TABLET NEEDED ORALLY EVERY 6 HRS PRN MDD4, NOTES: NONE RECENT-HAS RUN OUT DISCONTINUED PREDNISONE (MARY) 5 MG TABLET ORALLY MEDICATION LIST REVIEWED AND RECONCILED WITH THE PATIENT PAST MEDICAL HISTORY 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 NO KNOWN FAMILY HISTORY OF ANY UROLOGICALLY RELATED DISEASES/CANCERS. MOM-HELICOBACTER PYLORI, ESPHOGEAL STRICTURE, HIATAL HERNIA, CATHERINE CELL CARCINOMA. SOCIAL HISTORY GENERAL: TOBACCO USE ARE YOU A:CURRENT SMOKER ARE YOU INTERESTED IN QUITTING?NOT READY TO QUIT HE STATES HE IS CUTTING DOWN COUNSELED THE PATIENT ON SMOKING EFFECTS, EDUCATION [id number]/16/2019 HOW MANY CIGARETTES A DAY DO YOU SMOKE?11-20 HOW SOON AFTER YOU WAKE UP DO YOU SMOKE YOUR FIRST CIGARETTE?31-60 MIN HOW OFTEN DO YOU SMOKE CIGARETTES?EVERY DAY PATIENT COUNSELED ON THE DANGERS OF TOBACCO USE AND URGED TO QUIT:03/20/2018 LUNG CANCER SCREENING SMOKING STATUS:FORMER SMOKER ALCOHOL SCREENING DID YOU HAVE A DRINK CONTAINING ALCOHOL IN THE PAST YEAR?NO POINTS0 INTERPRETATIONNEGATIVE RECREATIONAL DRUG USE DRUG USE?NO CAFFEINE CAFFEINE USE?YES HOW OFTEN AND HOW MUCH? 1 CUP COFFEE/DAY SEXUAL HX HAD SEX IN THE LAST 12 MONTHS (VAGINAL, ORAL, OR ANAL)?YES WITHMEN ONLY USE PROTECTION?NO HAVE YOU EVER HAD AN STD?NO GNOSTICISM [id number] AGNOSTIC LANGUAGE FRENCH. EDUCATION LEVEL OF EDUCATION:COLLEGE MASTERS LEARNING BARRIERS / SPECIAL NEEDS BARRIERS TO LEARNING?NO HEARING IMPAIRED?NO VISION IMPAIRED?YES :CORRECTIVE LENSES COGNITIVELY IMPAIRED?NO READINESS TO LEARN?YES LEARNING PREFERENCES?YES :BOOKLETS, HANDOUTS, DEMONSTRATION/VERBAL INSTRUCTION LEARNING CAPABILITIES PRESENT?YES EMOTIONAL BARRIERS?NO SPECIAL DEVICES?NO TELETYPE TELEGRAPHER NEEDED?NO DOMESTIC VIOLENCE NONE. 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 DIET: REGULAR. EXERCISE: ACTIVE. MARITAL STATUS: SINGLE. OTHERS AT HOME: S.O.. PAIN CLINIC PFS, CLERGY, PUBLIC HEALTH REFERRALS PFS REFERRAL NEEDED?NO CLERGY REFERRAL NEEDED?NO PUBLIC HEALTH REFERRAL NEEDED?NO WAS THE PROVIDER NOTIFIED OF ANY PERTINENT INFO? N/A HAS THE PATIENT BEEN EDUCATED REGARDING HIS/HER PLAN OF CARE?YES HAS THE PATIENT BEEN EDUCATED REGARDING PAIN, THE RISK FOR PAIN, THE IMPORTANCE OF EFFECTIVE PAIN MANAGEMENT, AND THE PAIN ASSESSMENT PROCESS?YES ADVANCE DIRECTIVE ADVANCE DIRECTIVE DISCUSSED WITH PATIENT:YES 03/20/18 PT DOESN'T HAVE ANY ADVANCED DIRECTIVES AND HE DECLINES INFORMATION ON HCP AT THIS TIME. AD REVIEWED WITH PT 11/07/17 1131 LASREVIEWED WITH PT 01/09/18 1339 LAS01/30/18 1500 REVIEWED WITH PT. AD03/20/18 1525 REVIEWED WITH PT. AD. HOSPITALIZATION/MAJOR DIAGNOSTIC PROCEDURE PNEUMONIA X 3 REVIEW OF SYSTEMS REVIEWED BY: PROVIDER: . CONSTITUTIONAL: ANY CHANGE IN YOUR MEDICAL CONDITION? NO . CHILLS NO . FEVER NO . INFECTION: DO YOU HAVE NEW INFECTIONS? NO . DO YOU HAVE HISTORY OF MRSA? NO . MUSCULOSKELETAL: ANY NEW PATTERNS OF PAIN OR NUMBNESS? NO . GASTROENTEROLOGY: ANY NEW CHANGE IN BOWEL CONTROL? NO . GENITOURINARY: ANY NEW CHANGE IN BLADDER CONTROL? NO . IS THERE A CHANCE YOU COULD BE ? NO . HEMATOLOGY/LYMPH: DO YOU TAKE ANY BLOOD THINNERS? (FOR EXAMPLE- COUMADIN, PLAVIX, AGGRENOX, PLATEL, PRADAXA, OR XARELTO) NO . WHEN WAS YOUR LAST DOSE? DATE: TIME: . NEUROLOGY: HAVE YOU FALLEN IN THE PAST 12 MONTHS? NO . ANY NEW EXTREMITY NUMBNESS OR WEAKNESS? NO . CARDIOLOGY: DO YOU HAVE A PACEMAKER OR DEFIBRILLATOR? NO . RESPIRATORY: HAVE YOU BEEN SICK IN THE PAST WEEK? NO . FEVER NO . FLU LIKE SYMPTOMS? NO . COUGH NO . INTEGUMENTARY: DO YOU HAVE ANY RASHES OR OPEN SORES? YES ON OUTER LEFT THIGH-STATES FROM INGROWN HAIRS . ALLERGIC/IMMUNO: ARE YOU ALLERGIC TO IV DYE? NO . ANY NEW ALLERGIES? NO . PSYCHIATRIC: DO YOU HAVE THOUGHTS OF HURTING YOURSELF OR SOMEONE ELSE? NO . ARE YOU ABUSED, NEGLECTED, OR IN AN UNSAFE ENVIRONMENT? NO . ENDOCRINOLOGY: ARE YOU DIABETIC? NO . OTHER: DO YOU NEED ANY PRESCRIPTIONS? NO . IF YES, PLEASE LIST: ____ . ANY NEW PROBLEMS WITH YOUR MEDICATIONS? NO . WHEN DID YOU LAST EAT? 03/19/18 1130 . WHEN DID YOU LAST DRINK? 03/20/18 0830 . WHAT DID YOU LAST DRINK? COFFEE . NAME OF PERSON DRIVING YOU HOME? KAMILLA . DO YOU HAVE ANY OTHER QUESTIONS OR CONCERNS NO PT. HAS NOT HAD ANY VACCINES IN THE PAST 30 DAYS . VITAL SIGNS WT 252.6 LBS, HT 72", BMI 34.25 INDEX, BP 126/73 MM HG, HR 80 /MIN, RR 16 /MIN, TEMP 98.1 F, OXYGEN SAT % 100, SAFE IN ENV? (Y/N) Y, NA INITIALS MP 5390, REVIEWED BY: AD. ASSESSMENTS MYALGIA, OTHER SITE - M79.18 (PRIMARY) PROCEDURES PN TRIGGER POINT INJECTION WITH STEROIDS PRE PROCEDURE DIAGNOSIS 1. MYALGIA 2. PAIN AT RIGHT THORACIC AREA AND RIGHT LOW BACK AREA POST PROCEDURE DIAGNOSIS 1. MYALGIA 2. PAIN AT RIGHT THORACIC AREA AND RIGHT LOW BACK AREA PROCEDURE TRIGGER POINT INJECTION AT RIGHT THORACIC AREA AND RIGHT LOW BACK AREA SURGEON DR. BETTIE ALCANTAR COUNTER WEIGHER NONE ANESTHESIA LOCAL PRE PROCEDURE NOTE THE PATIENT HAS A HISTORY OF CHRONIC PAIN AT THE RIGHT THORACIC AREA AND RIGHT LOW BACK AREA. I EVALUATE THE PATIENT AND REVIEWED THE CHART. THERE IS EVIDENCE OF BANDS OF TISSUE WITH RESTRICTION OF MOVEMENT AND PRESENCE OF TRIGGER POINT AT THE AFFECTED AREA. I WENT OVER THE RISKS, ALTERNATIVES, AND BENEFITS ASSOCIATED WITH THIS PROCEDURE. THE PATIENT WOULD LIKE TO PROCEED AND GIVE CONSENT TO PERFORMED THE PROCEDURE. THE PATIENT DENIES UNEXPLAINABLE WEIGHT LOSS, FEVER, CHILLS, OR NEW CHANGES IN URINARY OR BOWEL CONTROL DESCRIPTION OF PROCEDURE THE PATIENT WAS BROUGHT TO THE PROCEDURE ROOM AND PLACED IN THE SITTING POSITION. THE AREA WAS CLEANED WITH ALCOHOL. THE PROCEDURE WAS DONE USING ASEPTIC STERILE TECHNIQUE. I CHECKED LATERALITY AND THE LEVEL WHERE THE PROCEDURE WAS GOING TO BE PERFORMED WITH THE PATIENT AND THE SUPPORTING STAFF AT THE MOMENT OF THE TIME OUT IN THE PROCEDURE ROOM. USING A 25-GAUGE NEEDLE, TRIGGER POINTS WERE INJECTED AT THE RIGHT THORACIC AREA AND RIGHT LOW BACK AREA WITH A TOTAL OF 40 ML OF BUPIVACAINE 0.25% AND KENALOG 40 MG. THERE WAS NO EVIDENCE OF BLOOD, PARESTHESIA OR CEREBROSPINAL FLUID DURING THE PROCEDURE. THE PATIENT WAS SENT TO THE RECOVERY ROOM. THE PATIENT WAS MOVING THE EXTREMITIES AND DOING WELL. THERE WAS NO COMPLICATION DURING THE PROCEDURE POST PROCEDURE NOTE THE PATIENT WILL BE SEEN IN A FOLLOW UP IN THE NEXT FEW WEEKS. INSTRUCTIONS WERE GIVEN, QUESTIONS WERE ANSWERED, AND THE PATIENT EXPRESSED UNDERSTANDING AND AGREES WITH THE PLAN. I, LENY WILHELM, DOCUMENTED THE ABOVE INFORMATION ACTING A SCRIBE FOR DR. ALCANTAR. I HAVE REVIEWED THE ABOVE DOCUMENT, WRITTEN BY LENY GUAN AND I VERIFY THAT IT IS ACCURATE. PROCEDURE CODES 89511 INJ TRIGGER POINT 03/06 [facility] DISPOSITION & COMMUNICATION FOLLOW UP 3 WEEKS ELECTRONICALLY SIGNED BY BETTIE ALCANTAR MD, MD ON 04/07/2018 AT 05:27 PM EST DISCLAIMER : THIS IS A VISIT SUMMARY EXTRACTED FROM THE [facility] CHART. IT IS NOT A COPY OF THE [facility] PROGRESS NOTE. AYANNA
== END ==
LOC: M PAIN 14:00
PROVIDERS: ATTEND Anesthesiology
DX: M79.18 Myalgia, other site (principal); M54.6 Pain in thoracic spine; M54.5 Low back pain; F17.210 Nicotine dependence, cigarettes, uncomplicated; Z79.899 Other long term (current) drug therapy; Z91.030 Bee allergy status
CPT/HCPCS: 20552; J3301

== ENCOUNTER → 2018-04-10 | Outpatient (CLI) | payer OTHER ==
[~2018-04-10] MED LIST changes: -BUPIVACAINE HCL 0.25% 10 ML VIAL As Ordered ONE; -BUPIVACAINE HCL 0.25% 30 ML VIAL As Ordered ONE; -TRIAMCINOLONE ACETONIDE SUSP 40 MG/ML VIAL (J3301) As Ordered ONE; -diazePAM 5 MG TAB As Ordered ONE; -oxyCODONE 5MG TAB As Ordered ONE
--- NOTE | 2018-04-25 00:22 | ECWPNPC ---
PATIENT NAME: VANESSA ELENA : 1980 GENDER: MALE VISIT DATE: 04/10/2018 DISCHARGE DATE: 04/10/18 1504 VISIT LOCKED DATE TIME: PHYSICIAN: DONNIE HUNT RESOURCE: DONNIE HUNT REASON FOR APPOINTMENT 1. POST TPI HISTORY OF PRESENT ILLNESS HISTORY OF PRESENT ILLNESS: HERE FOR F/U OF CHRONIC NECK AND GENERALIZED BACK PAIN.HAD TPI RIGHT THORACIC/RIGHT LUMBAR ON 03/20/18.REPORTING NO IMPROVEMENT AND SOME AGGREVATION IN PAIN.REPORTING GENERALIZED BACK PAIN 4/10 VAS.DESCRIBES PAIN CONTINUOUS AND SHOOTING. PAIN THE PATIENT DESCRIBES THE PAIN... FALL RISK SCREENING: SCREENING :NO FALLS IN THE PAST YEAR CURRENT MEDICATIONS TAKING GABAPENTIN 600 MG TABLET 1 CAPSULE ORALLY THREE TIMES A DAY TAKING CELEBREX 200 MG CAPSULE 1 CAPSULE WITH FOOD ORALLY ONCE A DAY TAKING CARISOPRODOL 350 MG TABLET 1 TABLET NEEDED ORALLY BID MDD=2 TAKING DULOXETINE HCL 30 MG CAPSULE DELAYED RELEASE PARTICLES 1 CAPSULE ORALLY ONCE A DAY TAKING OMEPRAZOLE 20 MG CAPSULE DELAYED RELEASE 1 CAPSULE ORALLY ONCE A DAY TAKING FLONASE 50 MCG/DOSE INHALER 1 SPRAY IN EACH NOSTRIL NASALLY ONCE A DAY TAKING ZYRTEC 10 MG TABLET 1 TABLET NEEDED ORALLY ONCE A DAY TAKING LISINOPRIL 40 MG TABLET 1 TABLET ORALLY ONCE A DAY TAKING EPIPEN 1 MG/ML DEVICE INTRAMUSCULAR TAKING TRAMADOL HCL 50 MG TABLET 1 TABLET NEEDED ORALLY EVERY 6 HRS PRN MDD4 MEDICATION LIST REVIEWED AND RECONCILED WITH THE PATIENT PAST MEDICAL HISTORY 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 NO KNOWN FAMILY HISTORY OF ANY UROLOGICALLY RELATED DISEASES/CANCERS. MOM-HELICOBACTER PYLORI, ESPHOGEAL STRICTURE, HIATAL HERNIA, CATHERINE CELL CARCINOMA. SOCIAL HISTORY GENERAL: TOBACCO USE ARE YOU A:CURRENT SMOKER ARE YOU INTERESTED IN QUITTING?NOT READY TO QUIT HE STATES HE IS CUTTING DOWN COUNSELED THE PATIENT ON SMOKING EFFECTS, EDUCATION [id number]/16/2019 HOW MANY CIGARETTES A DAY DO YOU SMOKE?11-20 HOW SOON AFTER YOU WAKE UP DO YOU SMOKE YOUR FIRST CIGARETTE?31-60 MIN HOW OFTEN DO YOU SMOKE CIGARETTES?EVERY DAY PATIENT COUNSELED ON THE DANGERS OF TOBACCO USE AND URGED TO QUIT:04/10/2018 LUNG CANCER SCREENING SMOKING STATUS:FORMER SMOKER ALCOHOL SCREENING DID YOU HAVE A DRINK CONTAINING ALCOHOL IN THE PAST YEAR?NO POINTS0 INTERPRETATIONNEGATIVE RECREATIONAL DRUG USE DRUG USE?NO CAFFEINE CAFFEINE USE?YES HOW OFTEN AND HOW MUCH? 1 CUP COFFEE/DAY SEXUAL HX HAD SEX IN THE LAST 12 MONTHS (VAGINAL, ORAL, OR ANAL)?YES WITHMEN ONLY USE PROTECTION?NO HAVE YOU EVER HAD AN STD?NO CONGREGATION [id number] AGNOSTIC LANGUAGE TELUGU. EDUCATION LEVEL OF EDUCATION:COLLEGE MASTERS LEARNING BARRIERS / SPECIAL NEEDS BARRIERS TO LEARNING?NO HEARING IMPAIRED?NO VISION IMPAIRED?YES :CORRECTIVE LENSES COGNITIVELY IMPAIRED?NO READINESS TO LEARN?YES LEARNING PREFERENCES?YES :BOOKLETS, HANDOUTS, DEMONSTRATION/VERBAL INSTRUCTION LEARNING CAPABILITIES PRESENT?YES EMOTIONAL BARRIERS?NO SPECIAL DEVICES?NO RADIO PROGRAM DIRECTOR NEEDED?NO DOMESTIC VIOLENCE NONE. 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 DIET: REGULAR. EXERCISE: ACTIVE. MARITAL STATUS: SINGLE. OTHERS AT HOME: S.O.. PAIN CLINIC PFS, CLERGY, PUBLIC HEALTH REFERRALS PFS REFERRAL NEEDED?NO CLERGY REFERRAL NEEDED?NO PUBLIC HEALTH REFERRAL NEEDED?NO WAS THE PROVIDER NOTIFIED OF ANY PERTINENT INFO?YES N/A HAS THE PATIENT BEEN EDUCATED REGARDING HIS/HER PLAN OF CARE?YES HAS THE PATIENT BEEN EDUCATED REGARDING PAIN, THE RISK FOR PAIN, THE IMPORTANCE OF EFFECTIVE PAIN MANAGEMENT, AND THE PAIN ASSESSMENT PROCESS?YES ADVANCE DIRECTIVE ADVANCE DIRECTIVE DISCUSSED WITH PATIENT:YES DOESN'T HAVE ANY ADVANCED DIRECTIVES AND HE DECLINES INFORMATION ON HCP AT THIS TIME. REVIEWED WITH PT 11/07/17 1131 LASREVIEWED WITH PT 01/09/18 1339 LAS01/30/18 1500 REVIEWED WITH PT. AD03/20/18 1525 REVIEWED WITH PT. AD. HOSPITALIZATION/MAJOR DIAGNOSTIC PROCEDURE PNEUMONIA X 3 REVIEW OF SYSTEMS REVIEWED BY: PROVIDER: DONNIE MORRISON . CONSTITUTIONAL: ANY CHANGE IN YOUR MEDICAL CONDITION? NO . CHILLS NO . FEVER NO . INFECTION: DO YOU HAVE NEW INFECTIONS? NO . DO YOU HAVE HISTORY OF MRSA? NO . MUSCULOSKELETAL: ANY NEW PATTERNS OF PAIN OR NUMBNESS? NO . GASTROENTEROLOGY: ANY NEW CHANGE IN BOWEL CONTROL? NO . GENITOURINARY: ANY NEW CHANGE IN BLADDER CONTROL? NO . IS THERE A CHANCE YOU COULD BE ? NO . HEMATOLOGY/LYMPH: DO YOU TAKE ANY BLOOD THINNERS? (FOR EXAMPLE- COUMADIN, PLAVIX, AGGRENOX, PLATEL, PRADAXA, OR XARELTO) NO . WHEN WAS YOUR LAST DOSE? DATE: TIME: . NEUROLOGY: HAVE YOU FALLEN IN THE PAST 12 MONTHS? NO . ANY NEW EXTREMITY NUMBNESS OR WEAKNESS? NO . CARDIOLOGY: DO YOU HAVE A PACEMAKER OR DEFIBRILLATOR? NO . RESPIRATORY: HAVE YOU BEEN SICK IN THE PAST WEEK? NO . FEVER NO . FLU LIKE SYMPTOMS? NO . COUGH NO . INTEGUMENTARY: DO YOU HAVE ANY RASHES OR OPEN SORES? NO . ALLERGIC/IMMUNO: ARE YOU ALLERGIC TO IV DYE? NO . ANY NEW ALLERGIES? NO . PSYCHIATRIC: DO YOU HAVE THOUGHTS OF HURTING YOURSELF OR SOMEONE ELSE? NO . ARE YOU ABUSED, NEGLECTED, OR IN AN UNSAFE ENVIRONMENT? NO . ENDOCRINOLOGY: ARE YOU DIABETIC? NO . OTHER: DO YOU NEED ANY PRESCRIPTIONS? CYMBALTA, GABAPENTIN . IF YES, PLEASE LIST: ____ . ANY NEW PROBLEMS WITH YOUR MEDICATIONS? NO . WHEN DID YOU LAST EAT? ____ . WHEN DID YOU LAST DRINK? ____ . WHAT DID YOU LAST DRINK? ____ . NAME OF PERSON DRIVING YOU HOME? ____ . DO YOU HAVE ANY OTHER QUESTIONS OR CONCERNS NO . VITAL SIGNS WT 255.2 LBS, HT 72", BMI 34.61 INDEX, BP 154/97 MM HG, HR 77 /MIN, RR 16 /MIN, TEMP 98.1 F, OXYGEN SAT % 97%, SAFE IN ENV? (Y/N) Y, NA INITIALS AW 1359, REVIEWED BY: CHAITANYA. EXAMINATION GENERAL EXAMINATION: LUNGS:LUNG SOUNDS ARE CLEAR . HEART:HEART RATE REGULAR . MUSCULOSKELETAL:*, MUSCLE STRENGTH TESTING 5/5 BILATERAL UPPER EXTREMITIES. . CERVICAL+ FOR PAIN WITH PALPATION OF CERVICAL SPINE. + FOR PAIN WITH PALPATION OF CERVICAL PARASPINALS.SPECIFIC POINT TENDERNESS NOTED OV C4/5-/C5/6 CERVICAL FACETS WITH EXTENSION AND FACET LOADING. . DIAGNOSTIC TESTS REVIEWEDCERVICAL MRI . ASSESSMENTS LUMBAR DISC DISPLACEMENT WITHOUT MYELOPATHY - M51.26 (PRIMARY) TREATMENT LUMBAR DISC DISPLACEMENT WITHOUT MYELOPATHY REFILL CARISOPRODOL TABLET, 350 MG, 1 TABLET NEEDED, ORALLY, BID MDD=2, 30 DAY(S), 60, REFILLS 5 INCREASE DULOXETINE HCL CAPSULE DELAYED RELEASE PARTICLES, 60 MG, 1 CAPSULE, ORALLY, ONCE A DAY, 30 DAY(S), 30 CAPSULE, REFILLS 5 REFILL TRAMADOL HCL TABLET, 50 MG, 1 TABLET NEEDED, ORALLY, EVERY 6 HRS PRN MDD4, 30 DAY(S), 60, REFILLS 2 NOTES: BILAT C5/6-C6/7 THERAPEUTIC FACET BLOCK. PROCEDURE CODES FA211 ESTABILISHED PATIENT [facility] CHARGE DISPOSITION & COMMUNICATION FOLLOW UP POST (REASON: BILAT C5/6-C6/7 THERAPEUTIC FACET BLOCK) ELECTRONICALLY SIGNED BY TAMIKO SILVA ON 04/24/2018 AT 03:39 PM EST DISCLAIMER : THIS IS A VISIT SUMMARY EXTRACTED FROM THE [employer] CHART. IT IS NOT A COPY OF THE [employer] PROGRESS NOTE. AYANNA
== END ==
LOC: M PAIN 13:45
PROVIDERS: ATTEND Nurse Practitioner Family
DX: M51.26 Other intervertebral disc displacement, lumbar region (principal); M79.7 Fibromyalgia; M47.812 Spondylosis without myelopathy or radiculopathy, cervical region; F17.210 Nicotine dependence, cigarettes, uncomplicated; Z79.899 Other long term (current) drug therapy; Z91.030 Bee allergy status

== ENCOUNTER → 2018-05-15 | Outpatient (CLI) | payer OTHER ==
--- NOTE | 2018-05-31 01:17 | ECWPNPC ---
PATIENT NAME: VANESSA ELENA : 1980 GENDER: MALE VISIT DATE: 05/15/2018 DISCHARGE DATE: 05/15/18 1236 VISIT LOCKED DATE TIME: PHYSICIAN: DONNIE HUNT RESOURCE: DONNIE HUNT REASON FOR APPOINTMENT 1. CHART REVIEW HISTORY OF PRESENT ILLNESS HISTORY OF PRESENT ILLNESS: HERE FOR F/U OF CHRONIC LOW BACK PAIN AND NECK PAIN.CHIEF AREA OF PAIN IS NECK .RATING PAIN 4/10 VAS.PAIN IS DESCRIBED CONTNUOUS ,SHARP AND STABBING.PAIN AWAKENS HIM FROM SLEEP. PAIN THE PATIENT DESCRIBES THE PAIN... FALL RISK SCREENING: SCREENING : NO FALLS IN THE PAST YEAR. CURRENT MEDICATIONS TAKING CELEBREX 200 MG CAPSULE 1 CAPSULE WITH FOOD ORALLY ONCE A DAY TAKING OMEPRAZOLE 20 MG CAPSULE DELAYED RELEASE 1 CAPSULE ORALLY ONCE A DAY TAKING FLONASE 50 MCG/DOSE INHALER 1 SPRAY IN EACH NOSTRIL NASALLY ONCE A DAY, NOTES: TAKES PRN TAKING ZYRTEC 10 MG TABLET 1 TABLET NEEDED ORALLY ONCE A DAY TAKING LISINOPRIL 40 MG TABLET 1 TABLET ORALLY ONCE A DAY TAKING EPIPEN 1 MG/ML DEVICE INTRAMUSCULAR TAKING DULOXETINE HCL 60 MG CAPSULE DELAYED RELEASE PARTICLES 1 CAPSULE ORALLY ONCE A DAY TAKING TRAMADOL HCL 50 MG TABLET 1 TABLET NEEDED ORALLY EVERY 6 HRS PRN MDD4 TAKING CARISOPRODOL 350 MG TABLET 1 TABLET NEEDED ORALLY BID MDD=2 TAKING GABAPENTIN 600 MG TABLET 1 CAPSULE ORALLY THREE TIMES A DAY MEDICATION LIST REVIEWED AND RECONCILED WITH THE PATIENT PAST MEDICAL HISTORY 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 NO KNOWN FAMILY HISTORY OF ANY UROLOGICALLY RELATED DISEASES/CANCERS. MOM-HELICOBACTER PYLORI, ESPHOGEAL STRICTURE, HIATAL HERNIA, CATHERINE CELL CARCINOMA. SOCIAL HISTORY GENERAL: TOBACCO USE ARE YOU A:CURRENT SMOKER ARE YOU INTERESTED IN QUITTING?NOT READY TO QUIT HE STATES HE IS CUTTING DOWN COUNSELED THE PATIENT ON SMOKING EFFECTS, EDUCATION [id number]/13/2019 HOW MANY CIGARETTES A DAY DO YOU SMOKE?11-20 HOW SOON AFTER YOU WAKE UP DO YOU SMOKE YOUR FIRST CIGARETTE?31-60 MIN HOW OFTEN DO YOU SMOKE CIGARETTES?EVERY DAY PATIENT COUNSELED ON THE DANGERS OF TOBACCO USE AND URGED TO QUIT:05/15/2018 LUNG CANCER SCREENING SMOKING STATUS:CURRENT SMOKER ALCOHOL SCREENING DID YOU HAVE A DRINK CONTAINING ALCOHOL IN THE PAST YEAR?NO POINTS0 INTERPRETATIONNEGATIVE RECREATIONAL DRUG USE DRUG USE?NO CAFFEINE CAFFEINE USE?YES HOW OFTEN AND HOW MUCH? 1 CUP COFFEE/DAY SEXUAL HX HAD SEX IN THE LAST 12 MONTHS (VAGINAL, ORAL, OR ANAL)?YES WITHMEN ONLY USE PROTECTION?NO HAVE YOU EVER HAD AN STD?NO [employer] [id number] AGNOSTIC LANGUAGE ESTONIAN. EDUCATION LEVEL OF EDUCATION:COLLEGE MASTERS LEARNING BARRIERS / SPECIAL NEEDS BARRIERS TO LEARNING?NO HEARING IMPAIRED?NO VISION IMPAIRED?YES :CORRECTIVE LENSES COGNITIVELY IMPAIRED?NO READINESS TO LEARN?YES LEARNING PREFERENCES?YES :BOOKLETS, HANDOUTS, DEMONSTRATION/VERBAL INSTRUCTION LEARNING CAPABILITIES PRESENT?YES EMOTIONAL BARRIERS?NO SPECIAL DEVICES?NO MONOGRAM MAKER NEEDED?NO DOMESTIC VIOLENCE NONE. 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 DIET: REGULAR. EXERCISE: ACTIVE. MARITAL STATUS: SINGLE. OTHERS AT HOME: S.O.. PAIN CLINIC PFS, CLERGY, PUBLIC HEALTH REFERRALS PFS REFERRAL NEEDED?NO CLERGY REFERRAL NEEDED?NO PUBLIC HEALTH REFERRAL NEEDED?NO WAS THE PROVIDER NOTIFIED OF ANY PERTINENT INFO? N/A HAS THE PATIENT BEEN EDUCATED REGARDING HIS/HER PLAN OF CARE?YES HAS THE PATIENT BEEN EDUCATED REGARDING PAIN, THE RISK FOR PAIN, THE IMPORTANCE OF EFFECTIVE PAIN MANAGEMENT, AND THE PAIN ASSESSMENT PROCESS?YES ADVANCE DIRECTIVE ADVANCE DIRECTIVE DISCUSSED WITH PATIENT:YES 05/15/18 PT. DOESN'T HAVE ANY ADVANCED DIRECTIVES AND HE DECLINES INFORMATION ON HCP AT THIS TIME. AD REVIEWED WITH PT 11/07/17 1131 LASREVIEWED WITH PT 01/09/18 1339 LAS01/30/18 1500 REVIEWED WITH PT. AD03/20/18 1525 REVIEWED WITH PT. AD05/15/18 REVIEWED WITH PT. AD. HOSPITALIZATION/MAJOR DIAGNOSTIC PROCEDURE PNEUMONIA X 3 REVIEW OF SYSTEMS REVIEWED BY: PROVIDER: DONNIE MORRISON . CONSTITUTIONAL: ANY CHANGE IN YOUR MEDICAL CONDITION? NO . CHILLS NO . FEVER NO . INFECTION: DO YOU HAVE NEW INFECTIONS? NO . DO YOU HAVE HISTORY OF MRSA? NO . MUSCULOSKELETAL: ANY NEW PATTERNS OF PAIN OR NUMBNESS? NO . GASTROENTEROLOGY: ANY NEW CHANGE IN BOWEL CONTROL? NO . GENITOURINARY: ANY NEW CHANGE IN BLADDER CONTROL? NO . IS THERE A CHANCE YOU COULD BE ? NO . HEMATOLOGY/LYMPH: DO YOU TAKE ANY BLOOD THINNERS? (FOR EXAMPLE- COUMADIN, PLAVIX, AGGRENOX, PLATEL, PRADAXA, OR XARELTO) NO . WHEN WAS YOUR LAST DOSE? DATE: TIME: . NEUROLOGY: HAVE YOU FALLEN IN THE PAST 12 MONTHS? NO . ANY NEW EXTREMITY NUMBNESS OR WEAKNESS? NO . CARDIOLOGY: DO YOU HAVE A PACEMAKER OR DEFIBRILLATOR? NO . RESPIRATORY: HAVE YOU BEEN SICK IN THE PAST WEEK? NO . FEVER NO . FLU LIKE SYMPTOMS? NO . COUGH NO . INTEGUMENTARY: DO YOU HAVE ANY RASHES OR OPEN SORES? NO . ALLERGIC/IMMUNO: ARE YOU ALLERGIC TO IV DYE? NO . ANY NEW ALLERGIES? NO . PSYCHIATRIC: DO YOU HAVE THOUGHTS OF HURTING YOURSELF OR SOMEONE ELSE? NO . ARE YOU ABUSED, NEGLECTED, OR IN AN UNSAFE ENVIRONMENT? NO . ENDOCRINOLOGY: ARE YOU DIABETIC? NO . OTHER: DO YOU NEED ANY PRESCRIPTIONS? NO . IF YES, PLEASE LIST: ____ . ANY NEW PROBLEMS WITH YOUR MEDICATIONS? NO . WHEN DID YOU LAST EAT? ____ . WHEN DID YOU LAST DRINK? ____ . WHAT DID YOU LAST DRINK? ____ . NAME OF PERSON DRIVING YOU HOME? ____ . DO YOU HAVE ANY OTHER QUESTIONS OR CONCERNS YES, MEDS DON'T SEEM TO BE REACHING HIS CONSTANT PAIN. HE IS UNDER A LOT OF STRESS RIGHT NOW WHICH IS INCREASING HIS PAIN. HIS CYMBALTA WAS INCREASED TO 60MGS BUT THIS HASN'T HAD ANY EFFECT ON HIS PAIN. . VITAL SIGNS WT 250 LBS, HT 72", BMI 33.90 INDEX, BP 126/86 MM HG, HR 75 /MIN, RR 18 /MIN, TEMP 96.7 F, OXYGEN SAT % 97%, SAFE IN ENV? (Y/N) Y, NA INITIALS RI 11:27, REVIEWED BY: MARISELA. EXAMINATION GENERAL EXAMINATION: LUNGS:LUNG SOUNDS ARE CLEAR . HEART:HEART RATE REGULAR . MUSCULOSKELETAL:*, MUSCLE STRENGTH TESTING 5/5 BILATERAL UPPER EXTREMITIES. . CERVICAL+ FOR PAIN WITH PALPATION OF CERVICAL SPINE. + FOR PAIN WITH PALPATION OF CERVICAL PARASPINALS.SPECIFIC POINT TENDERNESS NOTED OV C4/5-/C5/6 CERVICAL FACETS WITH EXTENSION AND FACET LOADING. . DIAGNOSTIC TESTS REVIEWEDCERVICAL MRI . 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 PROCEDURE CODES FA211 ESTABILISHED PATIENT [facility] CHARGE DISPOSITION & COMMUNICATION FOLLOW UP 2 MONTHS ELECTRONICALLY SIGNED BY TAMIKO SILVA ON 05/30/2018 AT 01:19 PM EDT DISCLAIMER : THIS IS A VISIT SUMMARY EXTRACTED FROM THE [employer] CHART. IT IS NOT A COPY OF THE [employer] PROGRESS NOTE. ABYD
== END ==
LOC: M PAIN 11:00
PROVIDERS: ATTEND Nurse Practitioner Family
DX: M47.812 Spondylosis without myelopathy or radiculopathy, cervical region (principal); M79.7 Fibromyalgia; K82.9 Disease of gallbladder, unspecified; F17.210 Nicotine dependence, cigarettes, uncomplicated; Z79.891 Long term (current) use of opiate analgesic; Z79.899 Other long term (current) drug therapy; Z91.030 Bee allergy status

== ENCOUNTER → 2018-07-03 | Outpatient (CLI) | payer OTHER, SELFPAY ==
[~2018-07-03] MED LIST changes: +HYDR-3715 PO; +LISI40TA52 PO; -LISI40TAB PO; -NORC1TAB4 PO; +NORC1TAB7 PO; -NORCOTAB PO
--- NOTE | 2018-07-20 23:57 | ECWPNPC ---
PATIENT NAME: VANESSA ELENA : 1980 GENDER: MALE VISIT DATE: 07/03/2018 DISCHARGE DATE: 07/03/18 1505 VISIT LOCKED DATE TIME: PHYSICIAN: DONNIE HUNT RESOURCE: DONNIE HUNT REASON FOR APPOINTMENT 1. BACK HISTORY OF PRESENT ILLNESS HISTORY OF PRESENT ILLNESS: HERE FOR F/U OF CHRONIC GEENRALIZED BACK PAIN.RATING PAIN VAS 4/10.FEELS INCREASE IN CYMBALTA IS HELPING.CONTINUES WITH CONSTANT ACHING AND SHARP PAIN.PAIN AWAKENS HIM FROM SLEEP.DISCUSSED ABNORMAL UTOX WHICH WAS POSITIVE FOR MARIJUANA.REVIEWED NARCOTIC AGREEMENT. PAIN THE PATIENT DESCRIBES THE PAIN... FALL RISK SCREENING: SCREENING :NO FALLS REPORTED IN THE LAST YEAR CURRENT MEDICATIONS TAKING OMEPRAZOLE 20 MG CAPSULE DELAYED RELEASE 1 CAPSULE ORALLY ONCE A DAY TAKING FLONASE 50 MCG/DOSE INHALER 1 SPRAY IN EACH NOSTRIL NASALLY ONCE A DAY, NOTES: TAKES PRN- NONE IN MONTHS TAKING ZYRTEC 10 MG TABLET 1 TABLET NEEDED ORALLY ONCE A DAY TAKING LISINOPRIL 40 MG TABLET 1 TABLET ORALLY ONCE A DAY TAKING EPIPEN 1 MG/ML DEVICE INTRAMUSCULAR TAKING TRAMADOL HCL 50 MG TABLET 1 TABLET NEEDED ORALLY EVERY 6 HRS PRN MDD4 TAKING CARISOPRODOL 350 MG TABLET 1 TABLET NEEDED ORALLY BID MDD=2 TAKING GABAPENTIN 600 MG TABLET 1 CAPSULE ORALLY THREE TIMES A DAY TAKING CELEBREX 200 MG CAPSULE 1 CAPSULE WITH FOOD ORALLY ONCE A DAY TAKING DULOXETINE HCL 60 MG CAPSULE DELAYED RELEASE PARTICLES 1 CAPSULE ORALLY ONCE A DAY MEDICATION LIST REVIEWED AND RECONCILED WITH THE PATIENT PAST MEDICAL HISTORY 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 NO KNOWN FAMILY HISTORY OF ANY UROLOGICALLY RELATED DISEASES\\/CANCERS. \\NMOM-HELICOBACTER PYLORI, ESPHOGEAL STRICTURE, HIATAL HERNIA, CATHERINE CELL CARCINOMA. SOCIAL HISTORY GENERAL: TOBACCO USE ARE YOU A:CURRENT SMOKER ARE YOU INTERESTED IN QUITTING?NOT READY TO QUIT HE STATES HE IS CUTTING DOWN COUNSELED THE PATIENT ON SMOKING EFFECTS, EDUCATION [id number]/13/2019 HOW MANY CIGARETTES A DAY DO YOU SMOKE?11-20 HOW SOON AFTER YOU WAKE UP DO YOU SMOKE YOUR FIRST CIGARETTE?31-60 MIN HOW OFTEN DO YOU SMOKE CIGARETTES?EVERY DAY PATIENT COUNSELED ON THE DANGERS OF TOBACCO USE AND URGED TO QUIT:05/15/2018 OTHERS AT HOME: S.O.. EDUCATION LEVEL OF EDUCATION:COLLEGE MASTERS DIET: REGULAR. LANGUAGE MALTESE. DOMESTIC VIOLENCE NONE. RECREATIONAL DRUG USE DRUG USE?NO EXERCISE: ACTIVE. LEARNING BARRIERS / SPECIAL NEEDS BARRIERS TO LEARNING?NO HEARING IMPAIRED?NO VISION IMPAIRED?YES :CORRECTIVE LENSES COGNITIVELY IMPAIRED?NO READINESS TO LEARN?YES LEARNING PREFERENCES?YES :BOOKLETS, HANDOUTS, DEMONSTRATION/VERBAL INSTRUCTION LEARNING CAPABILITIES PRESENT?YES EMOTIONAL BARRIERS?NO SPECIAL DEVICES?NO MOTORCYLES FINAL INSPECTOR NEEDED?NO LUNG CANCER SCREENING SMOKING STATUS:CURRENT SMOKER PAIN CLINIC PFS, CLERGY, PUBLIC HEALTH REFERRALS PFS REFERRAL NEEDED?NO CLERGY REFERRAL NEEDED?NO PUBLIC HEALTH REFERRAL NEEDED?NO WAS THE PROVIDER NOTIFIED OF ANY PERTINENT INFO? N/A HAS THE PATIENT BEEN EDUCATED REGARDING HIS/HER PLAN OF CARE?YES HAS THE PATIENT BEEN EDUCATED REGARDING PAIN, THE RISK FOR PAIN, THE IMPORTANCE OF EFFECTIVE PAIN MANAGEMENT, AND THE PAIN ASSESSMENT PROCESS?YES LATEX QUESTIONNAIRE LATEX ALLERGY : HAVE YOU EVER DEVELOPED ANY TYPE OF REACTION AFTER HANDLING LATEX PRODUCTS SUCH RUBBER GLOVES, CONDOMS, DIAPHRAGMS, BALLOONS, SOCKS, OR UNDERWEAR?NO LATEX ALLERGY : HAVE YOU EVER DEVELOPED ANY TYPE OF REACTION DURING OR AFTER DENTAL APPOINTMENT, VAGINAL/RECTAL EXAMINATION, SURGICAL PROCEDURE, OR ANY OTHER EXPOSURE?NO LATEX RISK : HAVE YOU EVER HAD ANY DIFFICULTY BREATHING OR HIVES AFTER EATING OR HANDLING ANY FRUITS, OR VEGETABLES; SUCH KIWI, BANANAS, STONE FRUITS, OR CHESTNUTSNO LATEX RISK : DO YOU HAVE A PREVIOUS PERSONAL HISTORY OF MORE THAN NINE SURGERIES, SPINA BIFIDA, OR REPEATED CATHERTIZATIONS? NO LATEX RISK : ARE YOU FREQUENTLY EXPOSED TO LATEX PRODUCTS IN YOUR OCCUPATION?NO DATE ASKED : 07/03/2018 CAFFEINE CAFFEINE USE?YES HOW OFTEN AND HOW MUCH? 1 CUP COFFEE/DAY ADVANCE DIRECTIVE ADVANCE DIRECTIVE DISCUSSED WITH PATIENT:YES PT DOESN'T HAVE ANY ADVANCED DIRECTIVES AND HE DECLINES INFORMATION ON HCP AT THIS TIME. 07/03/18 YAZIDI [id number] AGNOSTIC MARITAL STATUS: SINGLE. 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 SEXUAL HX HAD SEX IN THE LAST 12 MONTHS (VAGINAL, ORAL, OR ANAL)?: YES, WITH: MEN ONLY, USE PROTECTION?: NO, HAVE YOU EVER HAD AN STD?: NO. REVIEWED WITH PT 11/07/17 1131 LASREVIEWED WITH PT 01/09/18 1339 LAS01/30/18 1500 REVIEWED WITH PT. AD03/20/18 1525 REVIEWED WITH PT. AD05/15/18 REVIEWED WITH PT. ADREVIEWED WITH PT 07/03/18 1429 BV. HOSPITALIZATION/MAJOR DIAGNOSTIC PROCEDURE PNEUMONIA X 3 REVIEW OF SYSTEMS REVIEWED BY: PROVIDER: DONNIE MORRISON . CONSTITUTIONAL: ANY CHANGE IN YOUR MEDICAL CONDITION? NO . CHILLS NO . FEVER NO . INFECTION: DO YOU HAVE NEW INFECTIONS? NO . DO YOU HAVE HISTORY OF MRSA? NO . MUSCULOSKELETAL: ANY NEW PATTERNS OF PAIN OR NUMBNESS? NO . GASTROENTEROLOGY: ANY NEW CHANGE IN BOWEL CONTROL? NO . GENITOURINARY: ANY NEW CHANGE IN BLADDER CONTROL? NO . IS THERE A CHANCE YOU COULD BE ? NO . HEMATOLOGY/LYMPH: DO YOU TAKE ANY BLOOD THINNERS? (FOR EXAMPLE- COUMADIN, PLAVIX, AGGRENOX, PLATEL, PRADAXA, OR XARELTO) NO . WHEN WAS YOUR LAST DOSE? DATE: TIME: . NEUROLOGY: HAVE YOU FALLEN IN THE PAST 12 MONTHS? NO . ANY NEW EXTREMITY NUMBNESS OR WEAKNESS? NO . CARDIOLOGY: DO YOU HAVE A PACEMAKER OR DEFIBRILLATOR? NO . RESPIRATORY: HAVE YOU BEEN SICK IN THE PAST WEEK? NO . FEVER NO . FLU LIKE SYMPTOMS? NO . COUGH NO . INTEGUMENTARY: DO YOU HAVE ANY RASHES OR OPEN SORES? NO . ALLERGIC/IMMUNO: ARE YOU ALLERGIC TO IV DYE? NO . ANY NEW ALLERGIES? NO . PSYCHIATRIC: DO YOU HAVE THOUGHTS OF HURTING YOURSELF OR SOMEONE ELSE? NO . ARE YOU ABUSED, NEGLECTED, OR IN AN UNSAFE ENVIRONMENT? NO . ENDOCRINOLOGY: ARE YOU DIABETIC? NO . OTHER: DO YOU NEED ANY PRESCRIPTIONS? YES, TRAMADOL, SOMA . IF YES, PLEASE LIST: ____ . ANY NEW PROBLEMS WITH YOUR MEDICATIONS? NO . WHEN DID YOU LAST EAT? ____ . WHEN DID YOU LAST DRINK? ____ . WHAT DID YOU LAST DRINK? ____ . NAME OF PERSON DRIVING YOU HOME? ____ . DO YOU HAVE ANY OTHER QUESTIONS OR CONCERNS NO . VITAL SIGNS WT 252.2 LBS, HT 72", BMI 34.20 INDEX, BP 145/103 MM HG, HR 85 /MIN, RR 18 /MIN, TEMP 98.2 F, OXYGEN SAT % 96%, NA INITIALS AW 1359, REVIEWED BY: BV. EXAMINATION GENERAL EXAMINATION: GENERAL APPEARANCE:AWAKE,ALERT ,PLEAASANT . PSYCHAFFECT NORMAL . LUNGS:LUNG SCHAEFER ARE CLEAR TO AUSCULTATION BILATERALLY. GOOD MOVEMENT OF AIR . HEART:S1, S2 IN A REGULAR RATE AND RHYTHM. NO SIGNIFICANT MURMURS, RUBS OR GALLOPS NOTED . ASSESSMENTS LUMBAR DISC DISPLACEMENT WITHOUT MYELOPATHY - M51.26 (PRIMARY) TREATMENT LUMBAR DISC DISPLACEMENT WITHOUT MYELOPATHY STOP TRAMADOL HCL TABLET, 50 MG, 1 TABLET NEEDED, ORALLY, EVERY 6 HRS PRN MDD4 STOP CARISOPRODOL TABLET, 350 MG, 1 TABLET NEEDED, ORALLY, BID MDD=2 CONTINUE GABAPENTIN TABLET, 600 MG, 1 CAPSULE, ORALLY, THREE TIMES A DAY CONTINUE CELEBREX CAPSULE, 200 MG, 1 CAPSULE WITH FOOD, ORALLY, ONCE A DAY CONTINUE DULOXETINE HCL CAPSULE DELAYED RELEASE PARTICLES, 60 MG, 1 CAPSULE, ORALLY, ONCE A DAY START CYCLOBENZAPRINE HCL TABLET, 10 MG, 1 TABLET NEEDED, ORALLY, BEFORE BEDTIME, 30 DAYS, 30, REFILLS 2 PROCEDURE CODES FA211 ESTABILISHED PATIENT [facility] CHARGE DISPOSITION & COMMUNICATION FOLLOW UP 2 MONTHS ELECTRONICALLY SIGNED BY TAMIKO SILVA ON 07/20/2018 AT 12:14 PM EDT DISCLAIMER : THIS IS A VISIT SUMMARY EXTRACTED FROM THE [employer] CHART. IT IS NOT A COPY OF THE [employer] PROGRESS NOTE. AYANNA
== END ==
LOC: M PAIN 14:00
PROVIDERS: ATTEND Nurse Practitioner Family
DX: M51.26 Other intervertebral disc displacement, lumbar region (principal); G89.29 Other chronic pain; M79.7 Fibromyalgia; F17.210 Nicotine dependence, cigarettes, uncomplicated; Z91.030 Bee allergy status; Z79.899 Other long term (current) drug therapy

== ENCOUNTER → 2018-10-16 | Outpatient (CLI) | payer BC, OTHER ==
[~2018-10-16] MED LIST changes: +CYMB60CA3 PO
--- NOTE | 2018-11-06 02:32 | ECWPNPC ---
PATIENT NAME: VANESSA ELENA : 1980 GENDER: MALE VISIT DATE: 10/16/2018 DISCHARGE DATE: 10/16/18 1457 VISIT LOCKED DATE TIME: PHYSICIAN: DONNIE HUNT RESOURCE: DONNIE HUNT REASON FOR APPOINTMENT 1. BACK HISTORY OF PRESENT ILLNESS HISTORY OF PRESENT ILLNESS: HERE FOR F/U OF CHRONIC GENERALIZED BACK PAIN,NECK PAIN AND HEADACHE.RATING PAIN VAS 5/10.HAS HAD A SEVERE HEADACHE FOR 3 MONTHS.PAIN FROM FIBROMYALGIA HAS BEEN DISABLING.CONTINUES WITH CONSTANT ACHING AND SHARP PAIN.PAIN AWAKENS HIM FROM SLEEP. PAIN THE PATIENT DESCRIBES THE PAIN... THE PATIENT DESCRIBES THE PAIN... FALL RISK SCREENING: SCREENING :NO FALLS REPORTED IN THE LAST YEAR CURRENT MEDICATIONS TAKING OMEPRAZOLE 20 MG CAPSULE DELAYED RELEASE 1 CAPSULE ORALLY ONCE A DAY TAKING FLONASE 50 MCG/DOSE INHALER 1 SPRAY IN EACH NOSTRIL NASALLY ONCE A DAY, NOTES: TAKES PRN- NONE IN MONTHS TAKING LISINOPRIL 40 MG TABLET 1 TABLET ORALLY ONCE A DAY TAKING EPIPEN 1 MG/ML DEVICE INTRAMUSCULAR TAKING GABAPENTIN 600 MG TABLET 1 CAPSULE ORALLY THREE TIMES A DAY TAKING CELEBREX 200 MG CAPSULE 1 CAPSULE WITH FOOD ORALLY ONCE A DAY TAKING DULOXETINE HCL 60 MG CAPSULE DELAYED RELEASE PARTICLES 1 CAPSULE ORALLY ONCE A DAY TAKING CYCLOBENZAPRINE HCL 10 MG TABLET 1 TABLET NEEDED ORALLY FOR SPASMS AND PAIN TWICE DAILY NEEDED MDD2 NOT-TAKING ZYRTEC 10 MG TABLET 1 TABLET NEEDED ORALLY ONCE A DAY MEDICATION LIST REVIEWED AND RECONCILED WITH THE PATIENT PAST MEDICAL HISTORY 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 NO KNOWN FAMILY HISTORY OF ANY UROLOGICALLY RELATED DISEASES\\/CANCERS. \\NMOM-HELICOBACTER PYLORI, ESPHOGEAL STRICTURE, HIATAL HERNIA, CATHERINE CELL CARCINOMA. SOCIAL HISTORY GENERAL: TOBACCO USE ARE YOU A:CURRENT SMOKER ARE YOU INTERESTED IN QUITTING?NOT READY TO QUIT HE STATES HE IS CUTTING DOWN COUNSELED THE PATIENT ON SMOKING EFFECTS, EDUCATION [id number] HOW MANY CIGARETTES A DAY DO YOU SMOKE?11-20 HOW SOON AFTER YOU WAKE UP DO YOU SMOKE YOUR FIRST CIGARETTE?31-60 MIN HOW OFTEN DO YOU SMOKE CIGARETTES?EVERY DAY PATIENT COUNSELED ON THE DANGERS OF TOBACCO USE AND URGED TO QUIT:10/16/2018 OTHERS AT HOME: S.O.. EDUCATION LEVEL OF EDUCATION:COLLEGE MASTERS DIET: REGULAR. LANGUAGE CITIZEN OF [place]. DOMESTIC VIOLENCE NONE. RECREATIONAL DRUG USE DRUG USE?NO EXERCISE: ACTIVE. LEARNING BARRIERS / SPECIAL NEEDS BARRIERS TO LEARNING?NO HEARING IMPAIRED?NO VISION IMPAIRED?YES :CORRECTIVE LENSES COGNITIVELY IMPAIRED?NO READINESS TO LEARN?YES LEARNING PREFERENCES?YES :BOOKLETS, HANDOUTS, DEMONSTRATION/VERBAL INSTRUCTION LEARNING CAPABILITIES PRESENT?YES EMOTIONAL BARRIERS?NO SPECIAL DEVICES?NO KENNEL MANAGER NEEDED?NO LUNG CANCER SCREENING SMOKING STATUS:CURRENT SMOKER PAIN CLINIC PFS, CLERGY, PUBLIC HEALTH REFERRALS PFS REFERRAL NEEDED?NO CLERGY REFERRAL NEEDED?NO PUBLIC HEALTH REFERRAL NEEDED?NO WAS THE PROVIDER NOTIFIED OF ANY PERTINENT INFO? N/A HAS THE PATIENT BEEN EDUCATED REGARDING HIS/HER PLAN OF CARE?YES HAS THE PATIENT BEEN EDUCATED REGARDING PAIN, THE RISK FOR PAIN, THE IMPORTANCE OF EFFECTIVE PAIN MANAGEMENT, AND THE PAIN ASSESSMENT PROCESS?YES LATEX QUESTIONNAIRE LATEX ALLERGY : HAVE YOU EVER DEVELOPED ANY TYPE OF REACTION AFTER HANDLING LATEX PRODUCTS SUCH RUBBER GLOVES, CONDOMS, DIAPHRAGMS, BALLOONS, SOCKS, OR UNDERWEAR?NO LATEX ALLERGY : HAVE YOU EVER DEVELOPED ANY TYPE OF REACTION DURING OR AFTER DENTAL APPOINTMENT, VAGINAL/RECTAL EXAMINATION, SURGICAL PROCEDURE, OR ANY OTHER EXPOSURE?NO LATEX RISK : HAVE YOU EVER HAD ANY DIFFICULTY BREATHING OR HIVES AFTER EATING OR HANDLING ANY FRUITS, OR VEGETABLES; SUCH KIWI, BANANAS, STONE FRUITS, OR CHESTNUTSNO LATEX RISK : DO YOU HAVE A PREVIOUS PERSONAL HISTORY OF MORE THAN NINE SURGERIES, SPINA BIFIDA, OR REPEATED CATHERIZATIONS? NO LATEX RISK : ARE YOU FREQUENTLY EXPOSED TO LATEX PRODUCTS IN YOUR OCCUPATION?NO DATE ASKED : 07/03/2018 CAFFEINE CAFFEINE USE?YES HOW OFTEN AND HOW MUCH? 1 CUP COFFEE/DAY ADVANCE DIRECTIVE ADVANCE DIRECTIVE DISCUSSED WITH PATIENT:YES PT DOESN'T HAVE ANY ADVANCED DIRECTIVES AND HE DECLINES INFORMATION ON HCP AT THIS TIME. 07/03/18 BUDDHISM [id number] AGNOSTIC MARITAL STATUS: SINGLE. 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 SEXUAL HX HAD SEX IN THE LAST 12 MONTHS (VAGINAL, ORAL, OR ANAL)?: YES, WITH: MEN ONLY, USE PROTECTION?: NO, HAVE YOU EVER HAD AN STD?: NO. REVIEWED WITH PT 11/07/17 1131 LASREVIEWED WITH PT 01/09/18 1339 LAS01/30/18 1500 REVIEWED WITH PT. AD03/20/18 1525 REVIEWED WITH PT. AD05/15/18 REVIEWED WITH PT. ADREVIEWED WITH PATIENT 10/16/18 1412 NLJREVIEWED WITH PT 07/03/18 1429 BV. HOSPITALIZATION/MAJOR DIAGNOSTIC PROCEDURE PNEUMONIA X 3 REVIEW OF SYSTEMS REVIEWED BY: PROVIDER: DONNIE MORRISON . CONSTITUTIONAL: ANY CHANGE IN YOUR MEDICAL CONDITION? NO . CHILLS NO . FEVER NO . INFECTION: DO YOU HAVE NEW INFECTIONS? NO . DO YOU HAVE HISTORY OF MRSA? NO . MUSCULOSKELETAL: ANY NEW PATTERNS OF PAIN OR NUMBNESS? YES- BILATERAL LEGS HE IS FEELING FLUTTERS, FEELS DEEP PAIN IN BILATERAL LEGS WHEN HE PUSHES, HE STATES HE IS EXTEMELY TIRED . GASTROENTEROLOGY: ANY NEW CHANGE IN BOWEL CONTROL? NO . GENITOURINARY: ANY NEW CHANGE IN BLADDER CONTROL? NO . IS THERE A CHANCE YOU COULD BE ? NO . HEMATOLOGY/LYMPH: DO YOU TAKE ANY BLOOD THINNERS? (FOR EXAMPLE- COUMADIN, PLAVIX, AGGRENOX, PLATEL, PRADAXA, OR XARELTO) NO . WHEN WAS YOUR LAST DOSE? DATE: TIME: . NEUROLOGY: HAVE YOU FALLEN IN THE PAST 12 MONTHS? NO . ANY NEW EXTREMITY NUMBNESS OR WEAKNESS? YES- STATES BILATERAL LEGS FEEL FLUTTERY . CARDIOLOGY: DO YOU HAVE A PACEMAKER OR DEFIBRILLATOR? NO . RESPIRATORY: HAVE YOU BEEN SICK IN THE PAST WEEK? NO . FEVER NO . FLU LIKE SYMPTOMS? NO . COUGH NO . INTEGUMENTARY: DO YOU HAVE ANY RASHES OR OPEN SORES? NO . ALLERGIC/IMMUNO: ARE YOU ALLERGIC TO IV DYE? NO . ANY NEW ALLERGIES? NO . PSYCHIATRIC: DO YOU HAVE THOUGHTS OF HURTING YOURSELF OR SOMEONE ELSE? NO . ARE YOU ABUSED, NEGLECTED, OR IN AN UNSAFE ENVIRONMENT? NO . ENDOCRINOLOGY: ARE YOU DIABETIC? NO . OTHER: DO YOU NEED ANY PRESCRIPTIONS? NO . IF YES, PLEASE LIST: ____ . ANY NEW PROBLEMS WITH YOUR MEDICATIONS? NO . WHEN DID YOU LAST EAT? ____ . WHEN DID YOU LAST DRINK? ____ . WHAT DID YOU LAST DRINK? ____ . NAME OF PERSON DRIVING YOU HOME? ____ . DO YOU HAVE ANY OTHER QUESTIONS OR CONCERNS YES- PAIN IS GETTING WORSE, AND FEELS FLUTTERS IN BIALTEAL UPPER LEGS, STATES HE SLEEP WALKS AND HAS MEMORY LOSS WHICH IS GETTING WORSE . VITAL SIGNS WT 255.2 LBS, HT 72", BMI 34.61 INDEX, BP 144/99 MM HG, HR 75 /MIN, RR 18 /MIN, TEMP 97.2 F, OXYGEN SAT % 99%, SAFE IN ENV? (Y/N) YES, NA INITIALS SC 13:57, REVIEWED BY: JOHNPATIENT HAS A HEADACHE AND STATES HE THINKS THAT WHY HIS BP IS UP. EXAMINATION GENERAL EXAMINATION: GENERALAWAKE,ALERT ,PLEAASANT . PSYCHAFFECT NORMAL . LUNGS:LUNG SCHAEFER ARE CLEAR TO AUSCULTATION BILATERALLY. GOOD MOVEMENT OF AIR . HEART:S1, S2 IN A REGULAR RATE AND RHYTHM. NO SIGNIFICANT MURMURS, RUBS OR GALLOPS NOTED . ASSESSMENTS MYALGIA OF MUSCLE OF NECK - M79.18 (PRIMARY) TREATMENT MYALGIA OF MUSCLE OF NECK NOTES: TPI NECK/OCCIPITAL. PREVENTIVE MEDICINE PAIN CLINIC TEACHING: PROCEDURE TEACHING TRIGGER POINT INJECTION INFORMATION PRINTED AND REVIEWED WITH PATIENT 10/16/18 1449 JOHN. PROCEDURE CODES FA211 ESTABILISHED PATIENT [facility] FACILITY CHARGE DISPOSITION & COMMUNICATION FOLLOW UP POST (REASON: TPI NECK/OCCIPITAL) ELECTRONICALLY SIGNED BY TAMIKO SILVA ON 11/05/2018 AT 04:11 PM EDT DISCLAIMER : THIS IS A VISIT SUMMARY EXTRACTED FROM THE [employer] CHART. IT IS NOT A COPY OF THE [employer] PROGRESS NOTE. MTDD
== END ==
LOC: M PAIN 13:30
PROVIDERS: ATTEND Nurse Practitioner Family
DX: M79.18 Myalgia, other site (principal); F17.210 Nicotine dependence, cigarettes, uncomplicated; Z91.030 Bee allergy status; Z79.899 Other long term (current) drug therapy

== ENCOUNTER 2018-10-27 19:27 | Emergency (ER) | payer BC ==
[~2018-10-27] VITALS: Ht 180.3 cm; Wt 114.8 kg
[~2018-10-27 19:27] MED LIST changes: -CYMB60CA3 PO; -OMEP40CA2 PO; +OMEP40CA97 PO
[2018-10-27] MEDS ORDERED: CYMB60CA3 PO (20:17)
[2018-10-27 22:49] VITALS: BP 126/76
--- NOTE | 2018-10-29 08:43 | REP ---
Clinical: Pain with recent trauma . Technique: AP, lateral, bilateral oblique views of the left elbow. Findings: No acute fracture or dislocation is appreciated. There is a very small triangular unfused bony fragment at the tip of the olecranon process best identified on lateral radiograph which appears well corticated and may represent old injury or mild arthritic change. Joint spaces and surrounding soft tissues appear normal. Lateral view demonstrates normal positioning to the anterior and posterior fat pads without evidence for effusion/hemarthrosis. No subcutaneous emphysema or foreign body identified. Impression: No definite acute fracture or dislocation. Electronically Signed by Martinez Teague MD 10/28/2018 01:04 A
--- NOTE | 2018-10-29 08:43 | REP ---
Clinical: Trauma. Technique: AP and lateral views of the left forearm. Findings: No obvious acute fracture or dislocation. Skeletal structures, joint spaces, and surrounding soft tissues appear normal. Impression: No acute fracture or dislocation. Electronically Signed by Martinez Teague MD 10/28/2018 01:34 A
--- NOTE | 2018-10-29 08:43 | REP ---
Clinical: Trauma to left first digit. Technique: AP, lateral, bilateral oblique views left first digit . Findings: The osseous structures and joint spaces are intact and normal. There is no evidence for acute fracture or dislocation. Surrounding soft tissues are unremarkable. No subcutaneous emphysema or radiodense foreign body. Impression: No acute fracture or dislocation. Electronically Signed by Martinez Teague MD 10/28/2018 01:02 A
== END 2018-10-27 22:52 | disposition home or self-care (01) ==
LOC: M ED 19:27
DX: S63.602A Unspecified sprain of left thumb, initial encounter (principal); S50.02XA Contusion of left elbow, initial encounter; W01.0XXA Fall on same level from slipping, tripping and stumbling without subsequent striking against object, initial encounter; Y92.018 Other place in single-family (private) house as the place of occurrence of the external cause; K21.9 Gastro-esophageal reflux disease without esophagitis; Z79.899 Other long term (current) drug therapy; Z91.030 Bee allergy status

== ENCOUNTER → 2018-12-04 | Outpatient (CLI) | payer BC ==
[~2018-12-04] MED LIST changes: +BUPIVACAINE HCL 0.25% 10 ML VIAL As Ordered ONE; +BUPIVACAINE HCL 0.25% 30 ML VIAL As Ordered ONE; +CYMB60CA3 PO; +TRIAMCINOLONE ACETONIDE SUSP 40 MG/ML VIAL (J3301) As Ordered ONE
--- NOTE | 2018-12-23 11:40 | ECWPNPC ---
PATIENT NAME: VANESSA ELENA : 1980 GENDER: MALE VISIT DATE: 12/04/2018 DISCHARGE DATE: 12/04/18 1332 VISIT LOCKED DATE TIME: PHYSICIAN: BETTIE ALCANTAR MD RESOURCE: BETTIE ALCANTAR MD REASON FOR APPOINTMENT 1. TPI NECK HISTORY OF PRESENT ILLNESS HISTORY OF PRESENT ILLNESS: PAIN THE PATIENT DESCRIBES THE PAIN... FALL RISK SCREENING: SCREENING :NO FALLS REPORTED IN THE LAST YEAR CURRENT MEDICATIONS TAKING OMEPRAZOLE 20 MG CAPSULE DELAYED RELEASE 1 CAPSULE ORALLY ONCE A DAY, NOTES: 12-04-18699 TAKING FLONASE 50 MCG/DOSE INHALER 1 SPRAY IN EACH NOSTRIL NASALLY ONCE A DAY, NOTES: TAKES PRN- NONE IN MONTHS TAKING LISINOPRIL 40 MG TABLET 1 TABLET ORALLY ONCE A DAY, NOTES: 12-04-18729 TAKING EPIPEN 1 MG/ML DEVICE INTRAMUSCULAR TAKING GABAPENTIN 600 MG TABLET 1 CAPSULE ORALLY THREE TIMES A DAY, NOTES: 300 THIS MORNIG TAKING CELEBREX 200 MG CAPSULE 1 CAPSULE WITH FOOD ORALLY ONCE A DAY, NOTES: 12-04-18799 TAKING DULOXETINE HCL 60 MG CAPSULE DELAYED RELEASE PARTICLES 1 CAPSULE ORALLY ONCE A DAY, NOTES: 12-04-18829 TAKING CYCLOBENZAPRINE HCL 10 MG TABLET 1 TABLET NEEDED ORALLY FOR SPASMS AND PAIN Q8H PRN, NOTES: 12-04-18799 NOT-TAKING ZYRTEC 10 MG TABLET 1 TABLET NEEDED ORALLY ONCE A DAY MEDICATION LIST REVIEWED AND RECONCILED WITH THE PATIENT PAST MEDICAL HISTORY 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 NO KNOWN FAMILY HISTORY OF ANY UROLOGICALLY RELATED DISEASES\\/CANCERS. \\NMOM-HELICOBACTER PYLORI, ESPHOGEAL STRICTURE, HIATAL HERNIA, CATHERINE CELL CARCINOMA. SOCIAL HISTORY GENERAL: TOBACCO USE ARE YOU A:CURRENT SMOKER ARE YOU INTERESTED IN QUITTING?NOT READY TO QUIT HE STATES HE IS CUTTING DOWN COUNSELED THE PATIENT ON SMOKING EFFECTS, EDUCATION [id number]/14/2019 HOW MANY CIGARETTES A DAY DO YOU SMOKE?11-20 HOW SOON AFTER YOU WAKE UP DO YOU SMOKE YOUR FIRST CIGARETTE?31-60 MIN HOW OFTEN DO YOU SMOKE CIGARETTES?EVERY DAY PATIENT COUNSELED ON THE DANGERS OF TOBACCO USE AND URGED TO QUIT:12/04/2018 OTHERS AT HOME: S.O.. EDUCATION LEVEL OF EDUCATION:COLLEGE MASTERS DIET: REGULAR. LANGUAGE PANAMANIAN. DOMESTIC VIOLENCE NONE. RECREATIONAL DRUG USE DRUG USE?NO EXERCISE: ACTIVE. LEARNING BARRIERS / SPECIAL NEEDS BARRIERS TO LEARNING?NO HEARING IMPAIRED?NO VISION IMPAIRED?YES COGNITIVELY IMPAIRED?NO :CORRECTIVE LENSES READINESS TO LEARN?YES LEARNING PREFERENCES?YES :BOOKLETS, HANDOUTS, DEMONSTRATION/VERBAL INSTRUCTION LEARNING CAPABILITIES PRESENT?YES EMOTIONAL BARRIERS?NO SPECIAL DEVICES?NO COIL WRAPPER NEEDED?NO LUNG CANCER SCREENING SMOKING STATUS:CURRENT SMOKER PAIN CLINIC PFS, CLERGY, PUBLIC HEALTH REFERRALS PFS REFERRAL NEEDED?NO CLERGY REFERRAL NEEDED?NO PUBLIC HEALTH REFERRAL NEEDED?NO WAS THE PROVIDER NOTIFIED OF ANY PERTINENT INFO?YES N/A HAS THE PATIENT BEEN EDUCATED REGARDING HIS/HER PLAN OF CARE?YES HAS THE PATIENT BEEN EDUCATED REGARDING PAIN, THE RISK FOR PAIN, THE IMPORTANCE OF EFFECTIVE PAIN MANAGEMENT, AND THE PAIN ASSESSMENT PROCESS?YES LATEX QUESTIONNAIRE LATEX ALLERGY : HAVE YOU EVER DEVELOPED ANY TYPE OF REACTION AFTER HANDLING LATEX PRODUCTS SUCH RUBBER GLOVES, CONDOMS, DIAPHRAGMS, BALLOONS, SOCKS, OR UNDERWEAR?NO LATEX ALLERGY : HAVE YOU EVER DEVELOPED ANY TYPE OF REACTION DURING OR AFTER DENTAL APPOINTMENT, VAGINAL/RECTAL EXAMINATION, SURGICAL PROCEDURE, OR ANY OTHER EXPOSURE?NO LATEX RISK : HAVE YOU EVER HAD ANY DIFFICULTY BREATHING OR HIVES AFTER EATING OR HANDLING ANY FRUITS, OR VEGETABLES; SUCH KIWI, BANANAS, STONE FRUITS, OR CHESTNUTSNO LATEX RISK : DO YOU HAVE A PREVIOUS PERSONAL HISTORY OF MORE THAN NINE SURGERIES, SPINA BIFIDA, OR REPEATED CATHERIZATIONS? NO LATEX RISK : ARE YOU FREQUENTLY EXPOSED TO LATEX PRODUCTS IN YOUR OCCUPATION?NO DATE ASKED : 12/04/2018 CAFFEINE CAFFEINE USE?YES HOW OFTEN AND HOW MUCH? 1 CUP COFFEE/DAY ADVANCE DIRECTIVE ADVANCE DIRECTIVE DISCUSSED WITH PATIENT:YES PT DOESN'T HAVE ANY ADVANCED DIRECTIVES AND HE DECLINES INFORMATION ON HCP AT THIS TIME. NONDENOMINATIONAL [id number] AGNOSTIC MARITAL STATUS: SINGLE. 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 SEXUAL HX HAD SEX IN THE LAST 12 MONTHS (VAGINAL, ORAL, OR ANAL)?: YES, WITH: MEN ONLY, USE PROTECTION?: NO, HAVE YOU EVER HAD AN STD?: NO. REVIEWED WITH PT 11/07/17 1131 LASREVIEWED WITH PT 01/09/18 1339 LAS01/30/18 1500 REVIEWED WITH PT. AD03/20/18 1525 REVIEWED WITH PT. AD05/15/18 REVIEWED WITH PT. ADREVIEWED WITH PATIENT 10/16/18 1412 NLJREVIEWED WITH PT 07/03/18 1429 BV. HOSPITALIZATION/MAJOR DIAGNOSTIC PROCEDURE PNEUMONIA X 3 REVIEW OF SYSTEMS REVIEWED BY: PROVIDER: . CONSTITUTIONAL: ANY CHANGE IN YOUR MEDICAL CONDITION? NO . CHILLS NO . FEVER NO . INFECTION: DO YOU HAVE NEW INFECTIONS? NO . DO YOU HAVE HISTORY OF MRSA? NO . MUSCULOSKELETAL: ANY NEW PATTERNS OF PAIN OR NUMBNESS? NO . GASTROENTEROLOGY: ANY NEW CHANGE IN BOWEL CONTROL? NO . GENITOURINARY: ANY NEW CHANGE IN BLADDER CONTROL? NO . IS THERE A CHANCE YOU COULD BE ? NO . HEMATOLOGY/LYMPH: DO YOU TAKE ANY BLOOD THINNERS? (FOR EXAMPLE- COUMADIN, PLAVIX, AGGRENOX, PLATEL, PRADAXA, OR XARELTO) NO . WHEN WAS YOUR LAST DOSE? DATE: TIME: . NEUROLOGY: HAVE YOU FALLEN IN THE PAST 12 MONTHS? NO . ANY NEW EXTREMITY NUMBNESS OR WEAKNESS? NO . CARDIOLOGY: DO YOU HAVE A PACEMAKER OR DEFIBRILLATOR? NO . RESPIRATORY: HAVE YOU BEEN SICK IN THE PAST WEEK? NO . FEVER NO . FLU LIKE SYMPTOMS? NO . COUGH NO . INTEGUMENTARY: DO YOU HAVE ANY RASHES OR OPEN SORES? NO . ALLERGIC/IMMUNO: ARE YOU ALLERGIC TO IV DYE? NO . ANY NEW ALLERGIES? NO . PSYCHIATRIC: DO YOU HAVE THOUGHTS OF HURTING YOURSELF OR SOMEONE ELSE? NO . ARE YOU ABUSED, NEGLECTED, OR IN AN UNSAFE ENVIRONMENT? NO . ENDOCRINOLOGY: ARE YOU DIABETIC? NO . OTHER: DO YOU NEED ANY PRESCRIPTIONS? NO . IF YES, PLEASE LIST: ____ . ANY NEW PROBLEMS WITH YOUR MEDICATIONS? NO . WHEN DID YOU LAST EAT? 12/03 7PM . WHEN DID YOU LAST DRINK? 12/04 9AM . WHAT DID YOU LAST DRINK? WATER . NAME OF PERSON DRIVING YOU HOME? KAMILLA . DO YOU HAVE ANY OTHER QUESTIONS OR CONCERNS NO . VITAL SIGNS WT 259.2 LBS, HT 72", BMI 35.15 INDEX, BP 130/82 MM HG, HR 86 /MIN, RR 18 /MIN, TEMP 96.7 F, OXYGEN SAT % 97%, SAFE IN ENV? (Y/N) Y, NA INITIALS AW 1149, REVIEWED BY: DS. ASSESSMENTS MYALGIA, OTHER SITE - M79.18 (PRIMARY) PROCEDURES PN TRIGGER POINT INJECTION WITH STEROIDS PRE PROCEDURE DIAGNOSIS 1. MYALGIA 2. PAIN AT BILATERAL NECK AREA. POST PROCEDURE DIAGNOSIS 1. MYALGIA 2. PAIN AT BILATERAL NECK AREA. PROCEDURE TRIGGER POINT INJECTION AT RIGHT AND LEFT NECK AREA. SURGEON DR. BETTIE ALCANTAR NODE JS DEVELOPER NONE ANESTHESIA LOCAL PRE PROCEDURE NOTE THE PATIENT HAS A HISTORY OF CHRONIC PAIN AT THE RIGHT AND LEFT NECK AREA. I EVALUATED THE PATIENT AND REVIEWED THE CHART. THERE IS EVIDENCE OF BANDS OF TISSUE WITH RESTRICTION OF MOVEMENT AND PRESENCE OF TRIGGER POINT AT THE AFFECTED AREA. I WENT OVER THE RISKS, ALTERNATIVES, AND BENEFITS ASSOCIATED WITH THIS PROCEDURE. THE PATIENT WOULD LIKE TO PROCEED AND GIVES CONSENT TO PERFORM THE PROCEDURE. THE PATIENT DENIES UNEXPLAINABLE WEIGHT LOSS, FEVER, CHILLS, OR NEW CHANGES IN URINARY OR BOWEL CONTROL DESCRIPTION OF PROCEDURE THE PATIENT WAS BROUGHT TO THE PROCEDURE ROOM AND PLACED IN THE SITTING POSITION. THE AREA WAS CLEANED WITH ALCOHOL. THE PROCEDURE WAS DONE USING ASEPTIC STERILE TECHNIQUE. I CHECKED LATERALITY AND THE LEVEL WHERE THE PROCEDURE WAS GOING TO BE PERFORMED WITH THE PATIENT AND THE SUPPORTING STAFF AT THE MOMENT OF THE TIME OUT IN THE PROCEDURE ROOM. USING A 25-GAUGE NEEDLE, TRIGGER POINTS WERE INJECTED AT THE RIGHT AND LEFT NECK AREA WITH A TOTAL OF 40 ML OF BUPIVACAINE 0.25% AND KENALOG 40 MG. THERE WAS NO EVIDENCE OF BLOOD, PARESTHESIA OR CEREBROSPINAL FLUID DURING THE PROCEDURE. THE PATIENT WAS SENT TO THE RECOVERY ROOM. THE PATIENT WAS MOVING THE EXTREMITIES AND DOING WELL. THERE WAS NO COMPLICATION DURING THE PROCEDURE POST PROCEDURE NOTE THE PATIENT WILL BE SEEN IN A FOLLOW UP IN THE NEXT FEW WEEKS. DEPENDING ON THE NECK TRIGGER POINT INJECTION RESULTS, I MAY CONSIDER DOING A CERVICAL FACET BLOCK OR OCCIPITAL NERVE BLOCK IN THE FUTURE. INSTRUCTIONS WERE GIVEN, QUESTIONS WERE ANSWERED, AND THE PATIENT EXPRESSED UNDERSTANDING AND AGREES WITH THE PLAN. I, MANOJ RAMOS, DOCUMENTED THE ABOVE INFORMATION ACTING A SCRIBE FOR DR. ALCANTAR. I HAVE REVIEWED THE ABOVE DOCUMENT, WRITTEN BY MANOJ GUAN AND I VERIFY THAT IT IS ACCURATE. PROCEDURE CODES 62894 INJ TRIGGER POINT / [facility] [place] & COMMUNICATION FOLLOW UP 3 WEEKS ELECTRONICALLY SIGNED BY BETTIE ALCANTAR MD, MD ON 12/12/2018 AT 03:32 PM EDT DISCLAIMER : THIS IS A VISIT SUMMARY EXTRACTED FROM THE [employer] CHART. IT IS NOT A COPY OF THE [employer] PROGRESS NOTE. AYANNA
== END ==
LOC: M PAIN 11:45
PROVIDERS: ATTEND Anesthesiology
DX: M79.18 Myalgia, other site (principal); M54.30 Sciatica, unspecified side; M79.7 Fibromyalgia; M50.20 Other cervical disc displacement, unspecified cervical region; K82.9 Disease of gallbladder, unspecified; F17.210 Nicotine dependence, cigarettes, uncomplicated; Z79.899 Other long term (current) drug therapy; Z91.030 Bee allergy status
CPT/HCPCS: 20552; J3301

== ENCOUNTER → 2018-12-25 | Outpatient (CLI) | payer BC ==
[~2018-12-25] MED LIST changes: -BUPIVACAINE HCL 0.25% 10 ML VIAL As Ordered ONE; -BUPIVACAINE HCL 0.25% 30 ML VIAL As Ordered ONE; -TRIAMCINOLONE ACETONIDE SUSP 40 MG/ML VIAL (J3301) As Ordered ONE
--- NOTE | 2018-12-27 00:17 | ECWPNPC ---
PATIENT NAME: VANESSA ELENA : 1980 GENDER: MALE VISIT DATE: 12/25/2018 DISCHARGE DATE: 12/25/18 1224 VISIT LOCKED DATE TIME: PHYSICIAN: WILIAN SANCHEZ RESOURCE: WILIAN SANCHEZ REASON FOR APPOINTMENT 1. POST PROC CHECKING IN HISTORY OF PRESENT ILLNESS HISTORY OF PRESENT ILLNESS: PAIN THE PATIENT DESCRIBES THE PAIN... 38-YEAR-OLD MALE IN FOR POST TPI FOLLOW-UP. HE FEELS THE PROCEDURE WORKED WELL OVERALL STATING THAT IT RELIEVED HIS HEADACHE AND MOST OF HIS NECK PAIN. HE RATES HIS PAIN PREPROCEDURE AT A 6-7 OUT OF 10 AND POSTPROCEDURE AT A 0-3 OUT OF 10. HIS PAIN CURRENTLY IS RATED AT A 3 OUT OF 10 AND DESCRIBES IT TENDER, SHARP, STABBING, SHOOTING, ACHING AND CONTINUOUS. FALL RISK SCREENING: SCREENING :NO FALLS REPORTED IN THE LAST YEAR CURRENT MEDICATIONS TAKING OMEPRAZOLE 20 MG CAPSULE DELAYED RELEASE 1 CAPSULE ORALLY ONCE A DAY TAKING FLONASE 50 MCG/DOSE INHALER 1 SPRAY IN EACH NOSTRIL NASALLY ONCE A DAY TAKING LISINOPRIL 40 MG TABLET 1 TABLET ORALLY ONCE A DAY TAKING EPIPEN 1 MG/ML DEVICE INTRAMUSCULAR TAKING GABAPENTIN 600 MG TABLET 1 CAPSULE ORALLY THREE TIMES A DAY, NOTES: TAKES BEFORE BEDTIME TAKING DULOXETINE HCL 60 MG CAPSULE DELAYED RELEASE PARTICLES 1 CAPSULE ORALLY ONCE A DAY TAKING CYCLOBENZAPRINE HCL 10 MG TABLET 1 TABLET NEEDED ORALLY FOR SPASMS AND PAIN Q8H PRN TAKING CELEBREX 200 MG CAPSULE 1 CAPSULE WITH FOOD ORALLY ONCE A DAY TAKING AMITRIPTYLINE HCL 150 MG TABLET 1 TABLET AT BEDTIME ORALLY ONCE A DAY, NOTES: UNSURE OF DOSE NOT-TAKING ZYRTEC 10 MG TABLET 1 TABLET NEEDED ORALLY ONCE A DAY MEDICATION LIST REVIEWED AND RECONCILED WITH THE PATIENT PAST MEDICAL HISTORY 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 NO KNOWN FAMILY HISTORY OF ANY UROLOGICALLY RELATED DISEASES\\/CANCERS. \\NMOM-HELICOBACTER PYLORI, ESPHOGEAL STRICTURE, HIATAL HERNIA, CATHERINE CELL CARCINOMA. SOCIAL HISTORY GENERAL: TOBACCO USE ARE YOU A:CURRENT SMOKER ARE YOU INTERESTED IN QUITTING?THINKING ABOUT QUITTING HE STATES HE IS CUTTING DOWN HOW MANY CIGARETTES A DAY DO YOU SMOKE?6-10 HOW SOON AFTER YOU WAKE UP DO YOU SMOKE YOUR FIRST CIGARETTE?31-60 MIN HOW OFTEN DO YOU SMOKE CIGARETTES?EVERY DAY PATIENT COUNSELED ON THE DANGERS OF TOBACCO USE AND URGED TO QUIT:12/25/2018 OTHERS AT HOME: S.O.. EDUCATION LEVEL OF EDUCATION:COLLEGE MASTERS DIET: REGULAR. LANGUAGE ALBANIAN. DOMESTIC VIOLENCE NONE. RECREATIONAL DRUG USE DRUG USE?NO EXERCISE: ACTIVE. LEARNING BARRIERS / SPECIAL NEEDS BARRIERS TO LEARNING?NO HEARING IMPAIRED?NO VISION IMPAIRED?YES COGNITIVELY IMPAIRED?NO :CORRECTIVE LENSES READINESS TO LEARN?YES LEARNING PREFERENCES?YES :BOOKLETS, HANDOUTS, DEMONSTRATION/VERBAL INSTRUCTION LEARNING CAPABILITIES PRESENT?YES EMOTIONAL BARRIERS?NO SPECIAL DEVICES?NO MANUFACTURING SUPERVISOR NEEDED?NO LUNG CANCER SCREENING SMOKING STATUS:CURRENT SMOKER PAIN CLINIC PFS, CLERGY, PUBLIC HEALTH REFERRALS PFS REFERRAL NEEDED?NO CLERGY REFERRAL NEEDED?NO PUBLIC HEALTH REFERRAL NEEDED?NO WAS THE PROVIDER NOTIFIED OF ANY PERTINENT INFO?YES N/A HAS THE PATIENT BEEN EDUCATED REGARDING HIS/HER PLAN OF CARE?YES HAS THE PATIENT BEEN EDUCATED REGARDING PAIN, THE RISK FOR PAIN, THE IMPORTANCE OF EFFECTIVE PAIN MANAGEMENT, AND THE PAIN ASSESSMENT PROCESS?YES LATEX QUESTIONNAIRE LATEX ALLERGY : HAVE YOU EVER DEVELOPED ANY TYPE OF REACTION AFTER HANDLING LATEX PRODUCTS SUCH RUBBER GLOVES, CONDOMS, DIAPHRAGMS, BALLOONS, SOCKS, OR UNDERWEAR?NO LATEX ALLERGY : HAVE YOU EVER DEVELOPED ANY TYPE OF REACTION DURING OR AFTER DENTAL APPOINTMENT, VAGINAL/RECTAL EXAMINATION, SURGICAL PROCEDURE, OR ANY OTHER EXPOSURE?NO DATE ASKED : 12/04/2018 LATEX RISK : HAVE YOU EVER HAD ANY DIFFICULTY BREATHING OR HIVES AFTER EATING OR HANDLING ANY FRUITS, OR VEGETABLES; SUCH KIWI, BANANAS, STONE FRUITS, OR CHESTNUTSNO LATEX RISK : DO YOU HAVE A PREVIOUS PERSONAL HISTORY OF MORE THAN NINE SURGERIES, SPINA BIFIDA, OR REPEATED CATHERIZATIONS? NO LATEX RISK : ARE YOU FREQUENTLY EXPOSED TO LATEX PRODUCTS IN YOUR OCCUPATION?NO CAFFEINE CAFFEINE USE?YES HOW OFTEN AND HOW MUCH? 1 CUP COFFEE/DAY ADVANCE DIRECTIVE ADVANCE DIRECTIVE DISCUSSED WITH PATIENT:YES PT DOESN'T HAVE ANY ADVANCED DIRECTIVES AND HE DECLINES INFORMATION ON HCP AT THIS TIME. RELIGIOUS [id number] AGNOSTIC MARITAL STATUS: SINGLE. 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 SEXUAL HX HAD SEX IN THE LAST 12 MONTHS (VAGINAL, ORAL, OR ANAL)?: YES, WITH: MEN ONLY, USE PROTECTION?: NO, HAVE YOU EVER HAD AN STD?: NO. REVIEWED WITH PT 11/07/17 1131 LASREVIEWED WITH PT 01/09/18 1339 LAS01/30/18 1500 REVIEWED WITH PT. AD03/20/18 1525 REVIEWED WITH PT. AD05/15/18 REVIEWED WITH PT. ADREVIEWED WITH PATIENT 10/16/18 1412 NLJREVIEWED WITH PT 07/03/18 1429 BVREVIEWED WITH PATIENT 12/25/18 1155 NLJ. HOSPITALIZATION/MAJOR DIAGNOSTIC PROCEDURE PNEUMONIA X 3 REVIEW OF SYSTEMS REVIEWED BY: PROVIDER: EMELYN BOSTON . CONSTITUTIONAL: ANY CHANGE IN YOUR MEDICAL CONDITION? NO . CHILLS NO . FEVER NO . INFECTION: DO YOU HAVE NEW INFECTIONS? NO . DO YOU HAVE HISTORY OF MRSA? NO . MUSCULOSKELETAL: ANY NEW PATTERNS OF PAIN OR NUMBNESS? NO- STATES THAT THE HEADACHES AND NECK PAIN ARE BETTER AFTER THE TPI . GASTROENTEROLOGY: ANY NEW CHANGE IN BOWEL CONTROL? NO . GENITOURINARY: ANY NEW CHANGE IN BLADDER CONTROL? NO . IS THERE A CHANCE YOU COULD BE ? NO . HEMATOLOGY/LYMPH: DO YOU TAKE ANY BLOOD THINNERS? (FOR EXAMPLE- COUMADIN, PLAVIX, AGGRENOX, PLATEL, PRADAXA, OR XARELTO) NO . WHEN WAS YOUR LAST DOSE? DATE: TIME: . NEUROLOGY: HAVE YOU FALLEN IN THE PAST 12 MONTHS? NO . ANY NEW EXTREMITY NUMBNESS OR WEAKNESS? NO . CARDIOLOGY: DO YOU HAVE A PACEMAKER OR DEFIBRILLATOR? NO . RESPIRATORY: HAVE YOU BEEN SICK IN THE PAST WEEK? NO . FEVER NO . FLU LIKE SYMPTOMS? NO . COUGH NO . INTEGUMENTARY: DO YOU HAVE ANY RASHES OR OPEN SORES? NO . ALLERGIC/IMMUNO: ARE YOU ALLERGIC TO IV DYE? NO . ANY NEW ALLERGIES? NO . PSYCHIATRIC: DO YOU HAVE THOUGHTS OF HURTING YOURSELF OR SOMEONE ELSE? NO . ARE YOU ABUSED, NEGLECTED, OR IN AN UNSAFE ENVIRONMENT? NO . ENDOCRINOLOGY: ARE YOU DIABETIC? NO . OTHER: DO YOU NEED ANY PRESCRIPTIONS? YES . IF YES, PLEASE LIST: ____DULOXETINE, . ANY NEW PROBLEMS WITH YOUR MEDICATIONS? NO . WHEN DID YOU LAST EAT? ____ . WHEN DID YOU LAST DRINK? ____ . WHAT DID YOU LAST DRINK? ____ . NAME OF PERSON DRIVING YOU HOME? ____ . DO YOU HAVE ANY OTHER QUESTIONS OR CONCERNS NO- HAD THE FLU SHOT A WEEK AGO . VITAL SIGNS WT 258.4 LBS, HT 72", BMI 35.04 INDEX, BP 130/99 MM HG, HR 86 /MIN, RR 18 /MIN, TEMP 97.1 F, OXYGEN SAT % 98%, SAFE IN ENV? (Y/N) YES, NA INITIALS SC 12:05, REVIEWED BY: JOHN. EXAMINATION GENERAL EXAMINATION: GENERALNO ACUTE DISTRESS, WELL NOURISHED AND HYDRATED. PSYCHAPPROPRIATE MOOD AND AFFECT . LUNGS:CLEAR TO AUSCULTATION BILATERALLY, NO WHEEZES, RHONCHI, RALES. HEART:NO MURMURS, REGULAR RATE AND RHYTHM. ASSESSMENTS MYALGIA, OTHER SITE - M79.18 (PRIMARY) TREATMENT MYALGIA, OTHER SITE REFILL DULOXETINE HCL CAPSULE DELAYED RELEASE PARTICLES, 60 MG, 1 CAPSULE, ORALLY, ONCE A DAY, 30 DAYS, 30 CAPSULE, REFILLS 2 CLINICAL NOTES: 38-YEAR-OLD MALE IN FOR POST TPI FOLLOW-UP. GIVEN PRESENTING SYMPTOMS AND RESULTS OF PHYSICAL EXAMINATION RECOMMENDED FOLLOW-UP IN 2 MONTHS. PATIENT HAS EXPRESSED UNDERSTANDING OF AND WAS IN AGREEMENT WITH TREATMENT PLAN. GIVEN TIME TO ASK QUESTIONS AND EXPRESS CONCERNS., ISTOP REGISTRY REVIEWED AND DEMONSTRATES COMPLLIANCE. (REF # [id number] ) BRINGS IN MEDICATIONS WHICH IS APPROPRIATE FOR WHAT WAS DISPENSED. RECENT URINE TOXICOLOGY REVIEWED. NO UNAUTHORIZED MEDICATIONS. NO ILLICIT SUBSTANCES AND PRESCRIBED MEDICATIONS WERE PRESENT. PROCEDURE CODES FA211 ESTABILISHED PATIENT [facility]AC[facility] CHARGE DISPOSITION & COMMUNICATION FOLLOW UP 2 MONTHS (REASON: CHRONIC PAIN ) ELECTRONICALLY SIGNED BY TAMIKO CARROLL ON 12/26/2018 AT 08:51 AM EDT DISCLAIMER : THIS IS A VISIT SUMMARY EXTRACTED FROM THE [employer] CHART. IT IS NOT A COPY OF THE [employer] PROGRESS NOTE. AYANNA
== END ==
LOC: M PAIN 11:45
PROVIDERS: ATTEND Family Medicine
DX: M79.18 Myalgia, other site (principal); F17.210 Nicotine dependence, cigarettes, uncomplicated; Z91.030 Bee allergy status; Z79.899 Other long term (current) drug therapy

== ENCOUNTER → 2019-03-26 | Outpatient (CLI) | payer BC ==
--- NOTE | 2019-03-28 01:20 | ECWPNPC ---
PATIENT NAME: VANESSA ELENA : 1980 GENDER: MALE VISIT DATE: 03/26/2019 DISCHARGE DATE: 03/26/19 1217 VISIT LOCKED DATE TIME: PHYSICIAN: WILIAN SANCHEZ RESOURCE: WILIAN SANCHEZ REASON FOR APPOINTMENT 1. 2 MONTHS HISTORY OF PRESENT ILLNESS HISTORY OF PRESENT ILLNESS: PAIN THE PATIENT DESCRIBES THE PAIN... 38-YEAR-OLD MALE IN FOR CHRONIC PAIN FOLLOW-UP. HE RATES HIS PAIN CURRENTLY AT A 4 OUT OF 10 AND DESCRIBES IT ACHING, SHARP, BURNING, STABBING, AND SHOOTING. HE DOES ADMIT TO INCREASED CERVICAL PAIN. FALL RISK SCREENING: SCREENING :NO FALLS REPORTED IN THE LAST YEAR CURRENT MEDICATIONS TAKING OMEPRAZOLE 20 MG CAPSULE DELAYED RELEASE 1 CAPSULE ORALLY ONCE A DAY TAKING LISINOPRIL 40 MG TABLET 1 TABLET ORALLY ONCE A DAY TAKING EPIPEN 1 MG/ML DEVICE INTRAMUSCULAR TAKING CYCLOBENZAPRINE HCL 10 MG TABLET 1 TABLET NEEDED ORALLY FOR SPASMS AND PAIN Q8H PRN TAKING AMITRIPTYLINE HCL 150 MG TABLET 1 TABLET AT BEDTIME ORALLY ONCE A DAY TAKING DULOXETINE HCL 60 MG CAPSULE DELAYED RELEASE PARTICLES 1 CAPSULE ORALLY ONCE A DAY TAKING GABAPENTIN 600 MG TABLET 1 CAPSULE ORALLY THREE TIMES A DAY, NOTES: TAKES BEFORE BEDTIME TAKING CELEBREX 200 MG CAPSULE 1 CAPSULE WITH FOOD ORALLY ONCE A DAY NOT-TAKING FLONASE 50 MCG/DOSE INHALER 1 SPRAY IN EACH NOSTRIL NASALLY ONCE A DAY NOT-TAKING ZYRTEC 10 MG TABLET 1 TABLET NEEDED ORALLY ONCE A DAY MEDICATION LIST REVIEWED AND RECONCILED WITH THE PATIENT PAST MEDICAL HISTORY 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 NO KNOWN FAMILY HISTORY OF ANY UROLOGICALLY RELATED DISEASES\\/CANCERS. \\NMOM-HELICOBACTER PYLORI, ESPHOGEAL STRICTURE, HIATAL HERNIA, CATHERINE CELL CARCINOMAMOTHER HAD CATHERINE CELL CARCINOMA. DENIES FAMILY HX OF MELANOMA OR PANCREATIC CANCER. PATERNAL GRANDMOTHER 05/2018 FROM [place]. SOCIAL HISTORY GENERAL: TOBACCO USE ARE YOU A:CURRENT SMOKER ARE YOU INTERESTED IN QUITTING?THINKING ABOUT QUITTING HE STATES HE IS CUTTING DOWN HOW MANY CIGARETTES A DAY DO YOU SMOKE?6-10 HOW SOON AFTER YOU WAKE UP DO YOU SMOKE YOUR FIRST CIGARETTE?31-60 MIN HOW OFTEN DO YOU SMOKE CIGARETTES?EVERY DAY PATIENT COUNSELED ON THE DANGERS OF TOBACCO USE AND URGED TO QUIT:03/26/2019 OTHERS AT HOME: S.O.. EDUCATION LEVEL OF EDUCATION:COLLEGE MASTERS DIET: REGULAR. LANGUAGE AMERICAN. DOMESTIC VIOLENCE NONE. RECREATIONAL DRUG USE DRUG USE?NO EXERCISE: ACTIVE. LEARNING BARRIERS / SPECIAL NEEDS CHANGE FROM LAST VISIT? 12/25/18 BARRIERS TO LEARNING?NO HEARING IMPAIRED?NO VISION IMPAIRED?YES COGNITIVELY IMPAIRED?NO :CORRECTIVE LENSES READINESS TO LEARN?YES LEARNING PREFERENCES?YES :BOOKLETS, HANDOUTS, DEMONSTRATION/VERBAL INSTRUCTION LEARNING CAPABILITIES PRESENT?YES EMOTIONAL BARRIERS?NO SPECIAL DEVICES?NO TECHNICAL ADMINISTRATOR NEEDED?NO LUNG CANCER SCREENING SMOKING STATUS:CURRENT SMOKER PAIN CLINIC PFS, CLERGY, PUBLIC HEALTH REFERRALS PFS REFERRAL NEEDED?NO CLERGY REFERRAL NEEDED?NO PUBLIC HEALTH REFERRAL NEEDED?NO WAS THE PROVIDER NOTIFIED OF ANY PERTINENT INFO?YES N/A HAS THE PATIENT BEEN EDUCATED REGARDING HIS/HER PLAN OF CARE?YES HAS THE PATIENT BEEN EDUCATED REGARDING PAIN, THE RISK FOR PAIN, THE IMPORTANCE OF EFFECTIVE PAIN MANAGEMENT, AND THE PAIN ASSESSMENT PROCESS?YES LATEX QUESTIONNAIRE LATEX ALLERGY : HAVE YOU EVER DEVELOPED ANY TYPE OF REACTION AFTER HANDLING LATEX PRODUCTS SUCH RUBBER GLOVES, CONDOMS, DIAPHRAGMS, BALLOONS, SOCKS, OR UNDERWEAR?NO LATEX ALLERGY : HAVE YOU EVER DEVELOPED ANY TYPE OF REACTION DURING OR AFTER DENTAL APPOINTMENT, VAGINAL/RECTAL EXAMINATION, SURGICAL PROCEDURE, OR ANY OTHER EXPOSURE?NO DATE ASKED : 12/04/2018 LATEX RISK : HAVE YOU EVER HAD ANY DIFFICULTY BREATHING OR HIVES AFTER EATING OR HANDLING ANY FRUITS, OR VEGETABLES; SUCH KIWI, BANANAS, STONE FRUITS, OR CHESTNUTSNO LATEX RISK : DO YOU HAVE A PREVIOUS PERSONAL HISTORY OF MORE THAN NINE SURGERIES, SPINA BIFIDA, OR REPEATED CATHERIZATIONS? NO LATEX RISK : ARE YOU FREQUENTLY EXPOSED TO LATEX PRODUCTS IN YOUR OCCUPATION?NO CAFFEINE CAFFEINE USE?YES HOW OFTEN AND HOW MUCH? 1 CUP COFFEE/DAY ADVANCE DIRECTIVE ADVANCE DIRECTIVE DISCUSSED WITH PATIENT:YES PT DOESN'T HAVE ANY ADVANCED DIRECTIVES AND HE DECLINES INFORMATION ON HCP AT THIS TIME. BAPTIST [id number] AGNOSTIC MARITAL STATUS: SINGLE. 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 SEXUAL HX HAD SEX IN THE LAST 12 MONTHS (VAGINAL, ORAL, OR ANAL)?: YES, WITH: MEN ONLY, USE PROTECTION?: NO, HAVE YOU EVER HAD AN STD?: NO. REVIEWED WITH PT 11/07/17 1131 LASREVIEWED WITH PT 01/09/18 1339 LAS01/30/18 1500 REVIEWED WITH PT. AD03/20/18 1525 REVIEWED WITH PT. AD05/15/18 REVIEWED WITH PT. ADREVIEWED WITH PATIENT 10/16/18 1412 NLJREVIEWED WITH PT 07/03/18 1429 BVREVIEWED WITH PATIENT 12/25/18 1155 NLJREVIEWED WITH PATIENT 03/26/2019 1154 NLJ. HOSPITALIZATION/MAJOR DIAGNOSTIC PROCEDURE PNEUMONIA X 3 REVIEW OF SYSTEMS REVIEWED BY: PROVIDER: EMELYN BOSTON . CONSTITUTIONAL: ANY CHANGE IN YOUR MEDICAL CONDITION? NO . CHILLS NO . FEVER NO . INFECTION: DO YOU HAVE NEW INFECTIONS? NO . DO YOU HAVE HISTORY OF MRSA? NO . MUSCULOSKELETAL: ANY NEW PATTERNS OF PAIN OR NUMBNESS? NO . GASTROENTEROLOGY: ANY NEW CHANGE IN BOWEL CONTROL? NO . GENITOURINARY: ANY NEW CHANGE IN BLADDER CONTROL? NO . IS THERE A CHANCE YOU COULD BE ? NO . HEMATOLOGY/LYMPH: DO YOU TAKE ANY BLOOD THINNERS? (FOR EXAMPLE- COUMADIN, PLAVIX, AGGRENOX, PLATEL, PRADAXA, OR XARELTO) NO . WHEN WAS YOUR LAST DOSE? DATE: TIME: . NEUROLOGY: HAVE YOU FALLEN IN THE PAST 12 MONTHS? NO . ANY NEW EXTREMITY NUMBNESS OR WEAKNESS? NO- NOT A CHANGE IT IS JUST STILL THERE . CARDIOLOGY: DO YOU HAVE A PACEMAKER OR DEFIBRILLATOR? NO . RESPIRATORY: HAVE YOU BEEN SICK IN THE PAST WEEK? YES- ABOUT 1 MONTH AGO . FEVER NO . FLU LIKE SYMPTOMS? NO . COUGH NO . INTEGUMENTARY: DO YOU HAVE ANY RASHES OR OPEN SORES? NO . ALLERGIC/IMMUNO: ARE YOU ALLERGIC TO IV DYE? NO . ANY NEW ALLERGIES? NO . PSYCHIATRIC: DO YOU HAVE THOUGHTS OF HURTING YOURSELF OR SOMEONE ELSE? NO . ARE YOU ABUSED, NEGLECTED, OR IN AN UNSAFE ENVIRONMENT? NO . ENDOCRINOLOGY: ARE YOU DIABETIC? NO . OTHER: DO YOU NEED ANY PRESCRIPTIONS? YES- MAYBE SOMETHING DIFFERENT FOR THE SHARPER PAIN IN NECK . IF YES, PLEASE LIST: ____ . ANY NEW PROBLEMS WITH YOUR MEDICATIONS? NO . WHEN DID YOU LAST EAT? ____ . WHEN DID YOU LAST DRINK? ____ . WHAT DID YOU LAST DRINK? ____ . NAME OF PERSON DRIVING YOU HOME? ____ . DO YOU HAVE ANY OTHER QUESTIONS OR CONCERNS YES- WONDERING IF HE CAN HAVE REPEAT IMAGINING TO SEE IF ANYTHING HAS CHANGE IN HEAD AND CERVICAL AREA . VITAL SIGNS WT 260 LBS, HT 72", BMI 35.26 INDEX, BP 131/87 MM HG, HR 89 /MIN, RR 18 /MIN, TEMP 97.2 F, OXYGEN SAT % 97%, SAFE IN ENV? (Y/N) YES, NA INITIALS AW 1146, REVIEWED BY: JOHN. EXAMINATION GENERAL EXAMINATION: GENERALNO ACUTE DISTRESS, WELL NOURISHED AND HYDRATED. PSYCHAPPROPRIATE MOOD AND AFFECT . NECK:POINT TENDER ALONG CERVICAL SPINE, SURROUNDING SKIN SHOWS NO ERYTHEMA, ECCHYMOSIS, INCREASED WARMTH, AND/OR SKIN ERUPTIONS NOTED. . LUNGS:CLEAR TO AUSCULTATION BILATERALLY, NO WHEEZES, RHONCHI, RALES. HEART:NO MURMURS, REGULAR RATE AND RHYTHM. 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 GIVEN PRESENTING SYMPTOMS AND RESULTS OF PHYSICAL EXAMINATION RECOMMENDED MRI OF THE CERVICAL SPINE WITH FOLLOW UP POST IMAGING. PATIENT HAS EXPRESSED UNDERSTANDING OF AND WAS IN AGREEMENT WITH TREATMENT PLAN. GIVEN TIME TO ASK QUESTIONS AND EXPRESS CONCERNS. PROCEDURE CODES FA211 ESTABILISHED PATIENT [facility] FACILITY CHARGE DISPOSITION & COMMUNICATION FOLLOW UP AFTER DIAGNOSTIC IMAGING (REASON: CERVICAL MRI) ELECTRONICALLY SIGNED BY TAMIKO CARROLL ON 03/27/2019 AT 08:25 AM EST DISCLAIMER : THIS IS A VISIT SUMMARY EXTRACTED FROM THE [employer] CHART. IT IS NOT A COPY OF THE [employer] PROGRESS NOTE. AYANNA
== END ==
LOC: M PAIN 11:30
PROVIDERS: ATTEND Family Medicine
DX: M47.812 Spondylosis without myelopathy or radiculopathy, cervical region (principal); F17.210 Nicotine dependence, cigarettes, uncomplicated; Z79.899 Other long term (current) drug therapy; Z91.030 Bee allergy status

== ENCOUNTER → 2019-04-17 | Outpatient (CLI) | payer BC ==
--- NOTE | 2019-04-17 20:45 | REPVR ---
PROCEDURE INFORMATION: Exam: MR Cervical Spine Without Contrast Exam date and time: 04/17/2019 7:24 PM Age: 38 years old Clinical indication: Condition or disease; Spondylosis; Cervical region; Additional info: Cervical spondylosis TECHNIQUE: Imaging protocol: Multiplanar magnetic resonance images of the cervical spine without contrast. COMPARISON: MRI-Spine,Cervical without con 08/29/2016 3:28 PM FINDINGS: Vertebrae: Unremarkable. No spinal canal stenosis or neural foraminal narrowing in the cervical spine. Spinal cord: There is dilatation of the central canal of the cervical spinal cord extending from just below the C5-C6 disc space through the C7-T1 disc space. It measures approximately 4 cm cc by 3.5 mm AP x 5.2 mm in width. C2-C3: No disc disease. No spinal stenosis. C3-C4: No disc disease. No spinal stenosis. C4-C5: No disc disease. No spinal stenosis. C5-C6: No disc disease. No spinal stenosis. C6-C7: No disc disease. No spinal stenosis. C7-T1: No disc disease. No spinal stenosis. Vertebral arteries: Expected flow voids in the vertebral arteries. Soft tissues: Unremarkable. 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 Electronically signed by: Ximena Calloway On 04/17/2019 20:45:21 PM
== END ==
LOC: M RAD 17:52
PROVIDERS: ATTEND Family Medicine
DX: M47.812 Spondylosis without myelopathy or radiculopathy, cervical region (principal); G95.89 Other specified diseases of spinal cord

== ENCOUNTER → 2019-05-14 | Outpatient (CLI) | payer BC, SELFPAY ==
--- NOTE | 2019-05-16 02:55 | ECWPNPC ---
PATIENT NAME: VANESSA ELENA : 1980 GENDER: MALE VISIT DATE: 05/14/2019 DISCHARGE DATE: 05/14/19 1458 VISIT LOCKED DATE TIME: PHYSICIAN: WILIAN SANCHEZ RESOURCE: WILIAN SANCHEZ REASON FOR APPOINTMENT 1. FOLLOW UP MRI HISTORY OF PRESENT ILLNESS HISTORY OF PRESENT ILLNESS: PAIN THE PATIENT DESCRIBES THE PAINDURING THE LAST MONTH SEVERITY - PAIN SCORE OF4/10 LOCATIONSUPPER BACK, MID BACK, LOWER BACK, RIGHT HIP, LEFT HIP, RIGHT LEG, LEFT LEG QUALITYACHING , STABBING, TENDER, SORE DURATIONCONTINUOUS 38 YEAR OLD MALE IN FOR CHRONIC PAIN FOLLOW UP. HE HAD A CERVICAL MRI RECENTLY WHICH WILL BE REVIEWED WITH PATIENT TODAY. HE RATES HIS PAIN AT A 4/10 CURRENTLY AND DESCRIBES IT ACHING, STABING, SORE, SHOOTING, AND TENDER. HE FEELS HIS MEDICATIONS ARE WORKING WELL AND DENIES MED SIDE EFFECTS AT THIS TIME. FALL RISK SCREENING: SCREENING :NO FALLS REPORTED IN THE LAST YEAR CURRENT MEDICATIONS TAKING OMEPRAZOLE 20 MG CAPSULE DELAYED RELEASE 1 CAPSULE ORALLY ONCE A DAY TAKING LISINOPRIL 40 MG TABLET 1 TABLET ORALLY ONCE A DAY TAKING EPIPEN 1 MG/ML DEVICE INTRAMUSCULAR TAKING AMITRIPTYLINE HCL 150 MG TABLET 1 TABLET AT BEDTIME ORALLY ONCE A DAY TAKING DULOXETINE HCL 60 MG CAPSULE DELAYED RELEASE PARTICLES 1 CAPSULE ORALLY ONCE A DAY TAKING GABAPENTIN 600 MG TABLET 1 CAPSULE ORALLY THREE TIMES A DAY, NOTES: TAKES BEFORE BEDTIME TAKING CELEBREX 200 MG CAPSULE 1 CAPSULE WITH FOOD ORALLY ONCE A DAY TAKING CYCLOBENZAPRINE HCL 10 MG TABLET 1 TABLET NEEDED ORALLY FOR SPASMS AND PAIN Q8H PRN NOT-TAKING FLONASE 50 MCG/DOSE INHALER 1 SPRAY IN EACH NOSTRIL NASALLY ONCE A DAY NOT-TAKING ZYRTEC 10 MG TABLET 1 TABLET NEEDED ORALLY ONCE A DAY MEDICATION LIST REVIEWED AND RECONCILED WITH THE PATIENT PAST MEDICAL HISTORY 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 NO KNOWN FAMILY HISTORY OF ANY UROLOGICALLY RELATED DISEASES\\/CANCERS. \\NMOM-HELICOBACTER PYLORI, ESPHOGEAL STRICTURE, HIATAL HERNIA, CATHERINE CELL CARCINOMAMOTHER HAD CATHERINE CELL CARCINOMA. DENIES FAMILY HX OF MELANOMA OR PANCREATIC CANCER. PATERNAL GRANDMOTHER 05/2018 FROM [place]. SOCIAL HISTORY GENERAL: TOBACCO USE ARE YOU A:CURRENT SMOKER ARE YOU INTERESTED IN QUITTING?THINKING ABOUT QUITTING HE STATES HE IS CUTTING DOWN COUNSELED THE PATIENT ON SMOKING CESSATION, EDUCATION [id number]/11/2020 HOW MANY CIGARETTES A DAY DO YOU SMOKE?6-10 HOW SOON AFTER YOU WAKE UP DO YOU SMOKE YOUR FIRST CIGARETTE?31-60 MIN HOW OFTEN DO YOU SMOKE CIGARETTES?EVERY DAY PATIENT COUNSELED ON THE DANGERS OF TOBACCO USE AND URGED TO QUIT:05/14/2019 SMOKING CESSATION INFORMATION GIVEN05/14/2019 OTHERS AT HOME: S.O.. EDUCATION LEVEL OF EDUCATION:COLLEGE MASTERS DIET: REGULAR. LANGUAGE [facility] HELENIAN. DOMESTIC VIOLENCE NONE. RECREATIONAL DRUG USE DRUG USE?NO EXERCISE: ACTIVE. LEARNING BARRIERS / SPECIAL NEEDS CHANGE FROM LAST VISIT? 12/25/18 BARRIERS TO LEARNING?NO HEARING IMPAIRED?NO VISION IMPAIRED?YES COGNITIVELY IMPAIRED?NO :CORRECTIVE LENSES READINESS TO LEARN?YES LEARNING PREFERENCES?YES :BOOKLETS, HANDOUTS, DEMONSTRATION/VERBAL INSTRUCTION LEARNING CAPABILITIES PRESENT?YES EMOTIONAL BARRIERS?NO SPECIAL DEVICES?NO FINANCIAL MARKET DEALER NEEDED?NO LUNG CANCER SCREENING SMOKING STATUS:CURRENT SMOKER PAIN CLINIC PFS, CLERGY, PUBLIC HEALTH REFERRALS PFS REFERRAL NEEDED?NO CLERGY REFERRAL NEEDED?NO PUBLIC HEALTH REFERRAL NEEDED?NO WAS THE PROVIDER NOTIFIED OF ANY PERTINENT INFO?YES N/A HAS THE PATIENT BEEN EDUCATED REGARDING HIS/HER PLAN OF CARE?YES HAS THE PATIENT BEEN EDUCATED REGARDING PAIN, THE RISK FOR PAIN, THE IMPORTANCE OF EFFECTIVE PAIN MANAGEMENT, AND THE PAIN ASSESSMENT PROCESS?YES LATEX QUESTIONNAIRE LATEX ALLERGY : HAVE YOU EVER DEVELOPED ANY TYPE OF REACTION AFTER HANDLING LATEX PRODUCTS SUCH RUBBER GLOVES, CONDOMS, DIAPHRAGMS, BALLOONS, SOCKS, OR UNDERWEAR?NO LATEX ALLERGY : HAVE YOU EVER DEVELOPED ANY TYPE OF REACTION DURING OR AFTER DENTAL APPOINTMENT, VAGINAL/RECTAL EXAMINATION, SURGICAL PROCEDURE, OR ANY OTHER EXPOSURE?NO DATE ASKED : 12/04/2018 LATEX RISK : HAVE YOU EVER HAD ANY DIFFICULTY BREATHING OR HIVES AFTER EATING OR HANDLING ANY FRUITS, OR VEGETABLES; SUCH KIWI, BANANAS, STONE FRUITS, OR CHESTNUTSNO LATEX RISK : DO YOU HAVE A PREVIOUS PERSONAL HISTORY OF MORE THAN NINE SURGERIES, SPINA BIFIDA, OR REPEATED CATHERIZATIONS? NO LATEX RISK : ARE YOU FREQUENTLY EXPOSED TO LATEX PRODUCTS IN YOUR OCCUPATION?NO CAFFEINE CAFFEINE USE?YES HOW OFTEN AND HOW MUCH? 1 CUP COFFEE/DAY ADVANCE DIRECTIVE ADVANCE DIRECTIVE DISCUSSED WITH PATIENT:YES PT DOESN'T HAVE ANY ADVANCED DIRECTIVES AND HE DECLINES INFORMATION ON HCP AT THIS TIME. LATTER DAY [id number] AGNOSTIC MARITAL STATUS: SINGLE. 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 SEXUAL HX HAD SEX IN THE LAST 12 MONTHS (VAGINAL, ORAL, OR ANAL)?: YES, WITH: MEN ONLY, USE PROTECTION?: NO, HAVE YOU EVER HAD AN STD?: NO. REVIEWED WITH PT 11/07/17 1131 LASREVIEWED WITH PT 01/09/18 1339 LAS01/30/18 1500 REVIEWED WITH PT. AD03/20/18 1525 REVIEWED WITH PT. AD05/15/18 REVIEWED WITH PT. ADREVIEWED WITH PATIENT 10/16/18 1412 NLJREVIEWED WITH PT 07/03/18 1429 BVREVIEWED WITH PATIENT 12/25/18 1155 NLJREVIEWED WITH PATIENT 03/26/2019 1154 NLJ. HOSPITALIZATION/MAJOR DIAGNOSTIC PROCEDURE PNEUMONIA X 3 REVIEW OF SYSTEMS REVIEWED BY: PROVIDER: EMELYN MORRISON-Jeremy . CONSTITUTIONAL: ANY CHANGE IN YOUR MEDICAL CONDITION? NO . CHILLS NO . FEVER NO . INFECTION: DO YOU HAVE NEW INFECTIONS? NO . DO YOU HAVE HISTORY OF MRSA? NO . MUSCULOSKELETAL: ANY NEW PATTERNS OF PAIN OR NUMBNESS? NO . GASTROENTEROLOGY: ANY NEW CHANGE IN BOWEL CONTROL? NO . GENITOURINARY: ANY NEW CHANGE IN BLADDER CONTROL? YES, URGENCY TO USE THE BATHROOM . IS THERE A CHANCE YOU COULD BE ? NO . HEMATOLOGY/LYMPH: DO YOU TAKE ANY BLOOD THINNERS? (FOR EXAMPLE- COUMADIN, PLAVIX, AGGRENOX, PLATEL, PRADAXA, OR XARELTO) NO . WHEN WAS YOUR LAST DOSE? DATE: TIME: . NEUROLOGY: HAVE YOU FALLEN IN THE PAST 12 MONTHS? NO . ANY NEW EXTREMITY NUMBNESS OR WEAKNESS? YES, NUMBNESS AND WEAKNESS HAS BEEN ON AND OF . CARDIOLOGY: DO YOU HAVE A PACEMAKER OR DEFIBRILLATOR? NO . RESPIRATORY: HAVE YOU BEEN SICK IN THE PAST WEEK? NO . FEVER NO . FLU LIKE SYMPTOMS? NO . COUGH NO . INTEGUMENTARY: DO YOU HAVE ANY RASHES OR OPEN SORES? NO . ALLERGIC/IMMUNO: ARE YOU ALLERGIC TO IV DYE? NO . ANY NEW ALLERGIES? NO . PSYCHIATRIC: DO YOU HAVE THOUGHTS OF HURTING YOURSELF OR SOMEONE ELSE? NO . ARE YOU ABUSED, NEGLECTED, OR IN AN UNSAFE ENVIRONMENT? NO . ENDOCRINOLOGY: ARE YOU DIABETIC? NO . OTHER: DO YOU NEED ANY PRESCRIPTIONS? YES, REFILL ON CYCLOBENZAPRINE,CELEBREX, DULOXETINE . IF YES, PLEASE LIST: ____ . ANY NEW PROBLEMS WITH YOUR MEDICATIONS? NO . WHEN DID YOU LAST EAT? ____ . WHEN DID YOU LAST DRINK? ____ . WHAT DID YOU LAST DRINK? ____ . NAME OF PERSON DRIVING YOU HOME? ____ . DO YOU HAVE ANY OTHER QUESTIONS OR CONCERNS NO . VITAL SIGNS WT 260.6 LBS, HT 72", BMI 35.34 INDEX, BP 137/103 MM HG, HR 73 /MIN, RR 18 /MIN, TEMP 97.5 F, OXYGEN SAT % 95%, SAFE IN ENV? (Y/N) YES, NA INITIALS AW 1436, REVIEWED BY: JOHN HERNANDEZ LPN. EXAMINATION GENERAL EXAMINATION: GENERALNO ACUTE DISTRESS, WELL NOURISHED AND HYDRATED. PSYCHAPPROPRIATE MOOD AND AFFECT . LUNGS:CLEAR TO AUSCULTATION BILATERALLY, NO WHEEZES, RHONCHI, RALES. HEART:NO MURMURS, REGULAR RATE AND RHYTHM. 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 MRI RESULTS WERE REVIEWED WITH PATIENT. GIVEN PRESENTING SYMPTOMS RECOMMEND CONTINUATION OF CURRENT MEDICATION REGIMEN AND FOLLOW-UP NEEDED. PATIENT HAS EXPRESSED UNDERSTANDING OF AND WAS IN AGREEMENT WITH TREATMENT PLAN. GIVEN TIME TO ASK QUESTIONS AND EXPRESS CONCERNS.. PROCEDURE CODES FA211 ESTABILISHED PATIENT [facility] CHARGE DISPOSITION & COMMUNICATION FOLLOW UP NEEDED (REASON: NECK PAIN ) ELECTRONICALLY SIGNED BY TAMIKO CARROLL ON 05/15/2019 AT 08:41 AM EDT DISCLAIMER : THIS IS A VISIT SUMMARY EXTRACTED FROM THE [employer] CHART. IT IS NOT A COPY OF THE [employer] PROGRESS NOTE. AYANNA
== END ==
LOC: M PAIN 14:15
PROVIDERS: ATTEND Family Medicine
DX: M51.16 Intervertebral disc disorders with radiculopathy, lumbar region (principal); M47.812 Spondylosis without myelopathy or radiculopathy, cervical region

== ENCOUNTER → 2019-09-03 | Outpatient (CLI) | payer BC, MEDICAID, OTHER ==
[~2019-09-03] MED LIST changes: +CYCL-707 PO; -CYCL10TA PO
--- NOTE | 2019-09-04 23:23 | ECWPNPC ---
PATIENT NAME: VANESSA ELENA : 1980 GENDER: MALE VISIT DATE: 09/03/2019 DISCHARGE DATE: 09/03/19 1401 VISIT LOCKED DATE TIME: PHYSICIAN: WILIAN SANCHEZ RESOURCE: WILIAN SANCHEZ REASON FOR APPOINTMENT 1. INCREASED PAIN HISTORY OF PRESENT ILLNESS GENERAL: - 39-YEAR-OLD MALE IN FOR INCREASED PAIN. WHEN ASKED PATIENT ADMITS HE WAS GARDENING THE OTHER DAY AND APPROXIMATELY 2 HOURS AFTER HE EXPERIENCED EXACERBATION OF HIS BACK PAIN. PATIENT STATES THE PAIN IS LOCATED IN HIS LOW BACK AND RADIATES DOWN HIS LEGS. FALL RISK SCREENING: SCREENING :NO FALLS REPORTED IN THE LAST YEAR PAIN SCREENING: PATIENT HAS A COMPLAINT OF ACUTE OR CHRONIC PAIN :NO NURSING NOTE: -. PAIN CENTER INTAKE QUESTIONS: DO YOU HAVE A HISTORY OF MRSA? :NO DO YOU TAKE A BLOOD THINNERS? :NO DO YOU HAVE ANY BLEEDING DISORDERS? :NO ANY NEW NUMBNESS OR WEAKNESS IN YOUR LEGS OR ARMS? :YES BIALATERAL ARM WEAKNESS, NUMBNESS AND TINGLING, RIGHT GREATER THAN LEFT ANY PACEMAKER,DEFIBRILLATOR, OR DORSAL COLUMN STIMULATOR? :NO DO YOU HAVE ANY RASHES OR OPEN SORES? :NO ARE YOU ALLERGIC TO IV DYE? :NO ARE YOU DIABETIC? :NO ANY NEW PROBLEMS WITH YOUR MEDICATIONS? :NO HAVE YOU RECEIVED A VACCINE IN THE PAST 30 DAYS? :NO DO YOU PLAN TO RECEIVE A VACCINE IN THE NEXT 21 DAYS? :NO DO YOU NEED ANY PRESCRIPTION? :NO DO YOU TAKE ANY IMMUNOSUPPRESSIVE MEDICATIONS? :NO ANY HISTORY OF SEIZURES? :YES 1 SEIZURE ABOUT 9 MONTHS ANY HISTORY OF CARDIAC ISSUES OR EVENTS? :NO DO YOU HAVE SLEEP APNEA? :NO ANY RECENT HEAD INJURY? :NO DO YOU HAVE ANY NEW INFECTIONS? :NO IS THERE A CHANCE YOU COULD BE ? :NO ARE YOU BREAST FEEDING? :NO CURRENT MEDICATIONS TAKING OMEPRAZOLE 20 MG CAPSULE DELAYED RELEASE 1 CAPSULE ORALLY ONCE A DAY TAKING LISINOPRIL 40 MG TABLET 1 TABLET ORALLY ONCE A DAY TAKING EPIPEN 1 MG/ML DEVICE INTRAMUSCULAR TAKING AMITRIPTYLINE HCL 150 MG TABLET 1 TABLET AT BEDTIME ORALLY ONCE A DAY TAKING GABAPENTIN 600 MG TABLET 1 CAPSULE ORALLY THREE TIMES A DAY, NOTES: TAKES BEFORE BEDTIME TAKING CYCLOBENZAPRINE HCL 10 MG TABLET 1 TABLET NEEDED ORALLY FOR SPASMS AND PAIN Q8H PRN TAKING DULOXETINE HCL 60 MG CAPSULE DELAYED RELEASE PARTICLES 1 CAPSULE ORALLY ONCE A DAY TAKING CELEBREX 200 MG CAPSULE 1 CAPSULE WITH FOOD ORALLY ONCE A DAY NOT-TAKING FLONASE 50 MCG/DOSE INHALER 1 SPRAY IN EACH NOSTRIL NASALLY ONCE A DAY NOT-TAKING ZYRTEC 10 MG TABLET 1 TABLET NEEDED ORALLY ONCE A DAY MEDICATION LIST REVIEWED AND RECONCILED WITH THE PATIENT PAST MEDICAL HISTORY 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 NO KNOWN FAMILY HISTORY OF ANY UROLOGICALLY RELATED DISEASES\\/CANCERS. \\NMOM-HELICOBACTER PYLORI, ESPHOGEAL STRICTURE, HIATAL HERNIA, CATHERINE CELL CARCINOMAMOTHER HAD CATHERINE CELL CARCINOMA. DENIES FAMILY HX OF MELANOMA OR PANCREATIC CANCER. PATERNAL GRANDMOTHER 05/2018 FROM [place]. SOCIAL HISTORY GENERAL: TOBACCO USE ARE YOU A:CURRENT SMOKER ARE YOU INTERESTED IN QUITTING?THINKING ABOUT QUITTING HE STATES HE IS CUTTING DOWN COUNSELED THE PATIENT ON SMOKING CESSATION, EDUCATION [id number]/11/2020 HOW MANY CIGARETTES A DAY DO YOU SMOKE?6-10 HOW SOON AFTER YOU WAKE UP DO YOU SMOKE YOUR FIRST CIGARETTE?31-60 MIN HOW OFTEN DO YOU SMOKE CIGARETTES?EVERY DAY PATIENT COUNSELED ON THE DANGERS OF TOBACCO USE AND URGED TO QUIT:09/03/2019 SMOKING CESSATION INFORMATION GIVEN05/14/2019 LATEX QUESTIONNAIRE LATEX ALLERGY : HAVE YOU EVER DEVELOPED ANY TYPE OF REACTION AFTER HANDLING LATEX PRODUCTS SUCH RUBBER GLOVES, CONDOMS, DIAPHRAGMS, BALLOONS, SOCKS, OR UNDERWEAR?NO LATEX ALLERGY : HAVE YOU EVER DEVELOPED ANY TYPE OF REACTION DURING OR AFTER DENTAL APPOINTMENT, VAGINAL/RECTAL EXAMINATION, SURGICAL PROCEDURE, OR ANY OTHER EXPOSURE?NO LATEX RISK : HAVE YOU EVER HAD ANY DIFFICULTY BREATHING OR HIVES AFTER EATING OR HANDLING ANY FRUITS, OR VEGETABLES; SUCH KIWI, BANANAS, STONE FRUITS, OR CHESTNUTSNO LATEX RISK : DO YOU HAVE A PREVIOUS PERSONAL HISTORY OF MORE THAN NINE SURGERIES, SPINA BIFIDA, OR REPEATED CATHERIZATIONS? NO LATEX RISK : ARE YOU FREQUENTLY EXPOSED TO LATEX PRODUCTS IN YOUR OCCUPATION?NO DATE ASKED : 09/03/2019 LUNG CANCER SCREENING SMOKING STATUS:CURRENT SMOKER ALCOHOL SCREENING DID YOU HAVE A DRINK CONTAINING ALCOHOL IN THE PAST YEAR?NO POINTS0 INTERPRETATIONNEGATIVE RECREATIONAL DRUG USE DRUG USE?NO CAFFEINE CAFFEINE USE?YES HOW OFTEN AND HOW MUCH? 1 CUP COFFEE/DAY SEXUAL HX HAD SEX IN THE LAST 12 MONTHS (VAGINAL, ORAL, OR ANAL)?: YES, WITH: MEN ONLY, USE PROTECTION?: NO, HAVE YOU EVER HAD AN STD?: NO. CAODAISM [id number] AGNOSTIC LANGUAGE [place]. EDUCATION LEVEL OF EDUCATION:COLLEGE MASTERS LEARNING BARRIERS / SPECIAL NEEDS CHANGE FROM LAST VISIT? 12/25/18 BARRIERS TO LEARNING?NO HEARING IMPAIRED?NO VISION IMPAIRED?YES COGNITIVELY IMPAIRED?NO :CORRECTIVE LENSES READINESS TO LEARN?YES LEARNING PREFERENCES?YES :BOOKLETS, HANDOUTS, DEMONSTRATION/VERBAL INSTRUCTION LEARNING CAPABILITIES PRESENT?YES EMOTIONAL BARRIERS?NO SPECIAL DEVICES?NO SHIP RUNNER NEEDED?NO DOMESTIC VIOLENCE NONE. 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 DIET: REGULAR. EXERCISE: ACTIVE. MARITAL STATUS: SINGLE. OTHERS AT HOME: S.O.. PAIN CLINIC PFS, CLERGY, PUBLIC HEALTH REFERRALS PFS REFERRAL NEEDED?NO CLERGY REFERRAL NEEDED?NO PUBLIC HEALTH REFERRAL NEEDED?NO WAS THE PROVIDER NOTIFIED OF ANY PERTINENT INFO?YES N/A HAS THE PATIENT BEEN EDUCATED REGARDING HIS/HER PLAN OF CARE?YES HAS THE PATIENT BEEN EDUCATED REGARDING PAIN, THE RISK FOR PAIN, THE IMPORTANCE OF EFFECTIVE PAIN MANAGEMENT, AND THE PAIN ASSESSMENT PROCESS?YES ADVANCE DIRECTIVE ADVANCE DIRECTIVE DISCUSSED WITH PATIENT:YES PT DOESN'T HAVE ANY ADVANCED DIRECTIVES AND HE DECLINES INFORMATION ON HCP AT THIS TIME. REVIEWED WITH PT 11/07/17 1131 LASREVIEWED WITH PT 01/09/18 1339 LAS01/30/18 1500 REVIEWED WITH PT. AD03/20/18 1525 REVIEWED WITH PT. AD05/15/18 REVIEWED WITH PT. ADREVIEWED WITH PATIENT 10/16/18 1412 NLJREVIEWED WITH PT 07/03/18 1429 BVREVIEWED WITH PATIENT 12/25/18 1155 NLJREVIEWED WITH PATIENT 03/26/2019 1154 NLJ. HOSPITALIZATION/MAJOR DIAGNOSTIC PROCEDURE PNEUMONIA X 3 REVIEW OF SYSTEMS CONSTITUTIONAL: ANY RECENT FEVER NO . CHILLS NO . WEIGHT CHANGE OF UNKNOWN REASONS NO . GASTROENTEROLOGY: NEW UNEXPLAINABLE CHANGES IN BOWEL CONTROL NO . CONSTIPATION NO . GENITOURINARY: ANY NEW CHANGE IN BLADDER CONTROL? NO . NEUROLOGY: NEW ONSET DIZZINESS OR NEUROLOGICAL CHANGES NOT MENTIONED NO . NEW NUMBNESS OR PAIN PATTERNS NOT MENTIONED AND PERTINENT TO TODAY'S VISIT NO . CARDIOLOGY: NEW CHEST PRESSURE NO . NEW CHEST PAIN NO . RESPIRATORY: UNEXPLAINABLE COUGH NO . NEW SHORTNESS OF BREATH NO . VITAL SIGNS WT 263.2 LBS, HT 72", BMI 35.69 INDEX, BP 143/105 MM HG, HR 89 /MIN, RR 18 /MIN, TEMP 98.3 F, OXYGEN SAT % 98%, SAFE IN ENV? (Y/N) YES, NA INITIALS AW 1324, REVIEWED BY: JOHN. EXAMINATION GENERAL EXAMINATION: GENERALNO ACUTE DISTRESS, WELL NOURISHED AND HYDRATED. PSYCHAPPROPRIATE MOOD AND AFFECT . LUNGS:CLEAR TO AUSCULTATION BILATERALLY, NO WHEEZES, RHONCHI, RALES. HEART:NO MURMURS, REGULAR RATE AND RHYTHM. BACK: POINT TENDER ALONG LUMBAR SPINE, SURROUNDING SKIN SHOWS NO ERYTHEMA. ASSESSMENTS INTERVERTEBRAL DISC DISORDER WITH RADICULOPATHY OF LUMBAR REGION - M51.16 (PRIMARY) TREATMENT INTERVERTEBRAL DISC DISORDER WITH RADICULOPATHY OF LUMBAR REGION [facility] MRI LUMBAR W/O CONTRAST (CPT [id number] CLINICAL NOTES: 39-YEAR-OLD MALE IN WITH COMPLAINTS OF INCREASED PAIN. GIVEN PRESENTING SYMPTOMS AND RESULTS OF PHYSICAL EXAMINATION RECOMMENDED INCREASING FLEXERIL TO 4 TIMES A DAY DOSING AND AN MRI FOR FURTHER EVALUATION. PATIENT HAS EXPRESSED UNDERSTANDING OF AND WAS IN AGREEMENT WITH TREATMENT PLAN. GIVEN TIME TO ASK QUESTIONS AND EXPRESS CONCERNS. PROCEDURE CODES FA211 ESTABILISHED PATIENT [facility] CHARGE DISPOSITION & COMMUNICATION FOLLOW UP POST IMAGING (REASON: MRI LS ) ELECTRONICALLY SIGNED BY TAMIKO CARROLL ON 09/04/2019 AT 09:25 AM EDT DISCLAIMER : THIS IS A VISIT SUMMARY EXTRACTED FROM THE [employer] CHART. IT IS NOT A COPY OF THE [employer] PROGRESS NOTE. AYANNA
== END ==
LOC: M PAIN 13:00
PROVIDERS: ATTEND Family Medicine
DX: M51.16 Intervertebral disc disorders with radiculopathy, lumbar region (principal)

== ENCOUNTER 2019-12-19 17:18 | Emergency (ER) | payer OTHER ==
[~2019-12-19] VITALS: Ht 182.9 cm; Wt 117.5 kg
[~2019-12-19 17:18] MED LIST changes: -CIPR0.3S OS; +CIPR0.3S6 OS
[2019-12-19] MEDS ORDERED: KETO10TAB PO (18:30)
[2019-12-19] MEDS ORDERED: DOXY100C37 PO (18:30)
[2019-12-19 18:45] VITALS: BP 137/103
== END 2019-12-19 18:53 | disposition home or self-care (01) ==
LOC: M ED 17:18
DX: L03.315 Cellulitis of perineum (principal); M79.7 Fibromyalgia; K21.9 Gastro-esophageal reflux disease without esophagitis; F17.200 Nicotine dependence, unspecified, uncomplicated; Z91.030 Bee allergy status; Z79.899 Other long term (current) drug therapy

== ENCOUNTER → 2020-01-14 | Outpatient (CLI) | payer MEDICAID ==
[~2020-01-14] MED LIST changes: +DOXY100C37 PO; +KETO10TAB PO
--- NOTE | 2020-01-16 00:10 | ECWPNPC ---
PATIENT NAME: VANESSA ELENA : 1980 GENDER: MALE VISIT DATE: 01/14/2020 DISCHARGE DATE: 01/14/20 1521 VISIT LOCKED DATE TIME: PHYSICIAN: WILIAN SANCHEZ RESOURCE: WILIAN SANCHEZ REASON FOR APPOINTMENT 1. F/U HISTORY OF PRESENT ILLNESS GENERAL: - 39-YEAR-OLD MALE IN FOR CHRONIC PAIN FOLLOW-UP. HE RATES HIS PAIN CURRENTLY AT A 4 OUT OF 10 AND DESCRIBES IT STABBING, THROBBING, AND SHOOTING. AT LAST CLINIC VISIT PATIENT'S CYCLOBENZAPRINE WAS INCREASED AND HE ADMITS TODAY THAT THIS HAS BEEN BENEFICIAL. PATIENT WAS TO HAVE AN MRI PRIOR TO THIS VISIT AND HE ADMITS TODAY THAT THIS HAS NOT BEEN COMPLETED. FALL RISK SCREENING: SCREENING :NO FALLS REPORTED IN THE LAST YEAR PAIN SCREENING: PATIENT HAS A COMPLAINT OF ACUTE OR CHRONIC PAIN :YES LOCATION OF PAIN:NECK, LOW BACK INTENSITY OF PAIN (SCALE OF 1 TO 10):4 WHAT DOES YOUR PAIN FEEL LIKE:STABBING, THROBBING, SHOOTING DURATION:CONTINOUS, CONSTANT PAIN IS INCREASED BY:ACTIVITIES, OTHERS PROLONGED ACTIVITY PAIN IS DECREASED BY:USE OF PAIN MEDICATIONS, SITTING TREATMENT/MEDICATIONS USED TO MANAGE PAIN:OTC PAIN RELIEVERS LEVEL OF RELIEF FROM PAIN TREATMENTS IN THE PAST:25% PAIN HAS INTERFERED WITH THE FOLLOWING:BATHING/DRESSING, WALKING ABILITY, HOUSEWORK, SLEEP, TRANSPORTATION, TOILETING NURSING NOTE: -. PAIN CENTER INTAKE QUESTIONS: DO YOU HAVE A HISTORY OF MRSA? :NO DO YOU TAKE A BLOOD THINNERS? :NO DO YOU HAVE ANY BLEEDING DISORDERS? :NO ANY NEW NUMBNESS OR WEAKNESS IN YOUR LEGS OR ARMS? :YES RIGHT ARM AND LEG ANY PACEMAKER,DEFIBRILLATOR, OR DORSAL COLUMN STIMULATOR? :NO DO YOU HAVE ANY RASHES OR OPEN SORES? :NO ARE YOU ALLERGIC TO IV DYE? :NO ARE YOU DIABETIC? :YES PRE DIABETIC ANY NEW PROBLEMS WITH YOUR MEDICATIONS? :NO HAVE YOU RECEIVED A VACCINE IN THE PAST 30 DAYS? :NO DO YOU PLAN TO RECEIVE A VACCINE IN THE NEXT 21 DAYS? :NO DO YOU NEED ANY PRESCRIPTION? :YES CYCLOBENZAPRINE DO YOU TAKE ANY IMMUNOSUPPRESSIVE MEDICATIONS? :NO IS THERE A CHANCE YOU COULD BE ? :NO ARE YOU BREAST FEEDING? :NO CURRENT MEDICATIONS TAKING OMEPRAZOLE 20 MG CAPSULE DELAYED RELEASE 1 CAPSULE ORALLY ONCE A DAY TAKING LISINOPRIL 40 MG TABLET 1 TABLET ORALLY ONCE A DAY TAKING EPIPEN 1 MG/ML DEVICE INTRAMUSCULAR TAKING AMITRIPTYLINE HCL 150 MG TABLET 1 TABLET AT BEDTIME ORALLY ONCE A DAY TAKING GABAPENTIN 600 MG TABLET 1 CAPSULE ORALLY THREE TIMES A DAY, NOTES: TAKES BEFORE BEDTIME TAKING CYCLOBENZAPRINE HCL 10 MG TABLET 1 TABLET NEEDED ORALLY FOR SPASMS AND PAIN Q6H PRN TAKING VENLAFAXINE HCL ER 75 MG CAPSULE EXTENDED RELEASE 24 HOUR TAKE 1 CAPSULE BY MOUTH ONCE DAILY ORAL TAKING GLYCOPYRROLATE 2 MG TABLET 1 TABLET ORALLY ONCE A DAY IN AM TAKING DOXYCYCLINE HYCLATE 100 MG TABLET 1 TABLET ORALLY BID TAKING CELEBREX 200 MG CAPSULE 1 CAPSULE WITH FOOD ORALLY ONCE A DAY NOT-TAKING DOXYCYCLINE MONOHYDRATE 100 MG CAPSULE TAKE 1 CAPSULE BY MOUTH EVERY 12 HOURS ORAL MEDICATION LIST REVIEWED AND RECONCILED WITH THE PATIENT PAST MEDICAL HISTORY SCIATICA KIDNEY STONE FIBROMYALGIA HERNIATED DISCS IN THROUGHOUT NECK AND BACK GALL BLADDER PROBLEMS COLD SORES ARTHRITIS DEPRESSION ANXIETY NEUROLOGICAL PROBLEMS CELLULITIS TO LEFT THIGH ALLERGIES BEES: ANAPHYLAXIS SURGICAL HISTORY TYMPANOSTOMY TUBE ( A CHILD) CYST REMOVED OCCIPITAL REGION 12/2017 EGD AND COLONOSCOPY 2015 FAMILY HISTORY FATHER: ALIVE MOTHER: ALIVE, DM, BI-POLAR DISORDER, SCIATICA HIATAL HERNIA, HELICOBACTER PYLORI, RAZIA CELL CA., DIAGNOSED WITH DIABETES, UNSPECIFIED 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 NO KNOWN FAMILY HISTORY OF ANY UROLOGICALLY RELATED DISEASES\\/CANCERS. \\NMOM-HELICOBACTER PYLORI, ESPHOGEAL STRICTURE, HIATAL HERNIA, CATHERINE CELL CARCINOMAMOTHER HAD CATHERINE CELL CARCINOMA. DENIES FAMILY HX OF MELANOMA OR PANCREATIC CANCER. PATERNAL GRANDMOTHER 05/2018 FROM [place]. SOCIAL HISTORY GENERAL: TOBACCO USE ARE YOU A:CURRENT SMOKER ARE YOU INTERESTED IN QUITTING?THINKING ABOUT QUITTING HE STATES HE IS CUTTING DOWN COUNSELED THE PATIENT ON SMOKING CESSATION, EDUCATION [id number]/11/2020 HOW MANY CIGARETTES A DAY DO YOU SMOKE?6-10 HOW SOON AFTER YOU WAKE UP DO YOU SMOKE YOUR FIRST CIGARETTE?31-60 MIN HOW OFTEN DO YOU SMOKE CIGARETTES?EVERY DAY PATIENT COUNSELED ON THE DANGERS OF TOBACCO USE AND URGED TO QUIT:09/03/2019 SMOKING CESSATION INFORMATION GIVEN12/24/2019 LATEX QUESTIONNAIRE LATEX ALLERGY : HAVE YOU EVER DEVELOPED ANY TYPE OF REACTION AFTER HANDLING LATEX PRODUCTS SUCH RUBBER GLOVES, CONDOMS, DIAPHRAGMS, BALLOONS, SOCKS, OR UNDERWEAR?NO LATEX ALLERGY : HAVE YOU EVER DEVELOPED ANY TYPE OF REACTION DURING OR AFTER DENTAL APPOINTMENT, VAGINAL/RECTAL EXAMINATION, SURGICAL PROCEDURE, OR ANY OTHER EXPOSURE?NO LATEX RISK : HAVE YOU EVER HAD ANY DIFFICULTY BREATHING OR HIVES AFTER EATING OR HANDLING ANY FRUITS, OR VEGETABLES; SUCH KIWI, BANANAS, STONE FRUITS, OR CHESTNUTSNO LATEX RISK : DO YOU HAVE A PREVIOUS PERSONAL HISTORY OF MORE THAN NINE SURGERIES, SPINA BIFIDA, OR REPEATED CATHERIZATIONS? NO LATEX RISK : ARE YOU FREQUENTLY EXPOSED TO LATEX PRODUCTS IN YOUR OCCUPATION?NO DATE ASKED : 12/24/2019 LUNG CANCER SCREENING SMOKING STATUS:CURRENT SMOKER ALCOHOL SCREENING DID YOU HAVE A DRINK CONTAINING ALCOHOL IN THE PAST YEAR?NO POINTS0 INTERPRETATIONNEGATIVE RECREATIONAL DRUG USE DRUG USE?NO CAFFEINE CAFFEINE USE?YES HOW OFTEN AND HOW MUCH? 1 CUP COFFEE/DAY SEXUAL HX HAD SEX IN THE LAST 12 MONTHS (VAGINAL, ORAL, OR ANAL)?: YES, WITH: MEN ONLY, USE PROTECTION?: NO, HAVE YOU EVER HAD AN STD?: NO. LATTER DAY [id number] AGNOSTIC LANGUAGE FRENCH. EDUCATION LEVEL OF EDUCATION:COLLEGE MASTERS LEARNING BARRIERS / SPECIAL NEEDS CHANGE FROM LAST VISIT? 12/25/18, 12/24/19 BARRIERS TO LEARNING?NO HEARING IMPAIRED?NO VISION IMPAIRED?YES COGNITIVELY IMPAIRED?NO :CORRECTIVE LENSES READINESS TO LEARN?YES LEARNING PREFERENCES?YES :BOOKLETS, HANDOUTS, DEMONSTRATION/VERBAL INSTRUCTION LEARNING CAPABILITIES PRESENT?YES EMOTIONAL BARRIERS?NO SPECIAL DEVICES?NO JAVA PORTAL DEVELOPER NEEDED?NO DOMESTIC VIOLENCE NONE. 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 DIET: REGULAR. EXERCISE: ACTIVE. MARITAL STATUS: SINGLE. OTHERS AT HOME: S.O.. PAIN CLINIC PFS, CLERGY, PUBLIC HEALTH REFERRALS PFS REFERRAL NEEDED?NO CLERGY REFERRAL NEEDED?NO PUBLIC HEALTH REFERRAL NEEDED?NO WAS THE PROVIDER NOTIFIED OF ANY PERTINENT INFO?YES N/A HAS THE PATIENT BEEN EDUCATED REGARDING HIS/HER PLAN OF CARE?YES HAS THE PATIENT BEEN EDUCATED REGARDING PAIN, THE RISK FOR PAIN, THE IMPORTANCE OF EFFECTIVE PAIN MANAGEMENT, AND THE PAIN ASSESSMENT PROCESS?YES ADVANCE DIRECTIVE ADVANCE DIRECTIVE DISCUSSED WITH PATIENT:YES PT DOESN'T HAVE ANY ADVANCED DIRECTIVES AND HE DECLINES INFORMATION ON HCP AT THIS TIME. REVIEWED WITH PT 11/07/17 1131 LASREVIEWED WITH PT 01/09/18 1339 LAS01/30/18 1500 REVIEWED WITH PT. AD03/20/18 1525 REVIEWED WITH PT. AD05/15/18 REVIEWED WITH PT. ADREVIEWED WITH PATIENT 10/16/18 1412 NLJREVIEWED WITH PT 07/03/18 1429 BVREVIEWED WITH PATIENT 12/25/18 1155 NLJREVIEWED WITH PATIENT 03/26/2019 1154 NLJ. HOSPITALIZATION/MAJOR DIAGNOSTIC PROCEDURE PNEUMONIA X 5 REVIEW OF SYSTEMS CONSTITUTIONAL: ANY RECENT FEVER NO . CHILLS NO . WEIGHT CHANGE OF UNKNOWN REASONS NO . GASTROENTEROLOGY: NEW UNEXPLAINABLE CHANGES IN BOWEL CONTROL NO . CONSTIPATION NO . GENITOURINARY: ANY NEW CHANGE IN BLADDER CONTROL? NO . NEUROLOGY: NEW ONSET DIZZINESS OR NEUROLOGICAL CHANGES NOT MENTIONED NO . NEW NUMBNESS OR PAIN PATTERNS NOT MENTIONED AND PERTINENT TO TODAY'S VISIT NO . CARDIOLOGY: NEW CHEST PRESSURE NO . NEW CHEST PAIN NO . RESPIRATORY: UNEXPLAINABLE COUGH NO . NEW SHORTNESS OF BREATH NO . VITAL SIGNS WT 264.2 LBS, HT 72", BMI 35.83 INDEX, BP 143/88 MM HG, HR 76 /MIN, RR 18 /MIN, TEMP 96.8 F, OXYGEN SAT % 98%, SAFE IN ENV? (Y/N) Y, NA INITIALS AW 1424, REVIEWED BY: EM. EXAMINATION GENERAL EXAMINATION: GENERALNO ACUTE DISTRESS, WELL NOURISHED AND HYDRATED. PSYCHAPPROPRIATE MOOD AND AFFECT . NECK:POINT TENDER BILATERAL NECK AND SHOULDERS, SURROUNDING SKIN SHOWS NO ERYTHEMA, ECCHYMOSIS, INCREASED WARMTH, AND/OR SKIN ERUPTIONS NOTED. BANDS OF RESTRICTIVE TISSUE NOTED OVER TRIGGER POINTS . LUNGS:CLEAR TO AUSCULTATION BILATERALLY, NO WHEEZES, RHONCHI, RALES. HEART:NO MURMURS, REGULAR RATE AND RHYTHM. ASSESSMENTS MYALGIA, OTHER SITE - M79.18 (PRIMARY) TREATMENT MYALGIA, OTHER SITE NOTES: 39-YEAR-OLD MALE IN FOR CHRONIC PAIN FOLLOW-UP. GIVEN PRESENTING SYMPTOMS RECOMMEND TRIGGER POINT INJECTIONS OF THE NECK AND SHOULDERS BILATERALLY WITH POSTPROCEDURAL FOLLOW-UP. PATIENT EXPRESSED UNDERSTANDING OF AND WAS IN AGREEMENT WITH TREATMENT PLAN. GIVEN TIME TO ASK QUESTIONS AND EXPRESS CONCERNS. 01/14/20 1515 PATIENT GIVEN HANDOUT FOR TRIGGER POINT INJECTIONS, AND PRE PROCEDURE INSTRUCTIONS, PATIENT VERBALIZES UNDERSTANDING. CLINICAL NOTES: BILATERAL NECK AND SHOULDER TRIGGER POINT INJECTION. PROCEDURE CODES FA211 ESTABILISHED PATIENT [facility] CHARGE DISPOSITION & COMMUNICATION FOLLOW UP POSTPROCEDURE (REASON: BILATERAL NECK AND SHOULDER TRIGGER POINT INJECTIONS) ELECTRONICALLY SIGNED BY TAMIKO CARROLL ON 01/15/2020 AT 01:01 PM EST DISCLAIMER : THIS IS A VISIT SUMMARY EXTRACTED FROM THE [employer] CHART. IT IS NOT A COPY OF THE [employer] PROGRESS NOTE. AYANNA
== END ==
LOC: M PAIN 14:15
PROVIDERS: ATTEND Family Medicine
DX: M79.18 Myalgia, other site (principal); R73.03 Prediabetes; M79.7 Fibromyalgia; F17.210 Nicotine dependence, cigarettes, uncomplicated; Z86.59 Personal history of other mental and behavioral disorders; Z91.030 Bee allergy status; Z79.899 Other long term (current) drug therapy

== ENCOUNTER → 2020-02-03 | Outpatient (REF) | payer OTHER, MEDICAID | LOC: M LAB REF 13:59 | PROVIDERS: ATTEND Dermatology | DX: L72.0 Epidermal cyst (principal) ==

== ENCOUNTER → 2020-02-06 | Outpatient (CLI) | payer OTHER ==
--- NOTE | 2020-02-06 17:30 | REPVR ---
PROCEDURE INFORMATION: Exam: MR Lumbar Spine Without Contrast. Exam date and time: 02/06/2020 3:20 PM Age: 39 years old Clinical indication: Low back pain; Additional info: Intravertebral disc disorder of lumbar region TECHNIQUE: Imaging protocol: Multiplanar magnetic resonance images of the lumbar spine without intravenous contrast. COMPARISON: MRI-Spine, L.S. without con 08/09/2016 1:56 PM FINDINGS: Vertebrae: Alignment is normal. There is no compression fracture in the lumbar spine. Spinal cord: The conus medullaris is normal appearance at the L1-L2 level. L1-L2: No significant spinal canal stenosis or neural foraminal narrowing. L2-L3: No significant spinal canal stenosis or neural foraminal narrowing. L3-L4: There is a mildly bulging annulus with resultant mild to moderate spinal canal stenosis and narrowing of the lateral recesses which could affect the exiting L4 nerve roots although there is residual fat within the lateral recesses. The neural foramina are patent. L4-L5: Diffusely bulging annulus with central annular tear with resultant mild to moderate spinal canal stenosis and narrowing of the lateral recesses without definite compression of the exiting L5 nerve roots. There is residual fat in the lateral recesses. The neural foramina are patent. L5-S1: There is a central annular tear with subligamentous disc herniation which compresses the ventral thecal sac and may affect both exiting S1 nerve roots. The neural foramina are patent. Soft tissues: Unremarkable. IMPRESSION: There is a central subligamentous disc herniation at the L5-S1 level which may affect both exiting S1 nerve roots greater on right than left. The previously noted disc herniation at the L4-L5 level has resolved in the interim. Electronically signed by: Ximena Calloway On 02/06/2020 17:31:24 PM
== END ==
LOC: M RAD 14:04
PROVIDERS: ATTEND Family Medicine
DX: M51.16 Intervertebral disc disorders with radiculopathy, lumbar region (principal)

== ENCOUNTER → 2020-02-08 | Outpatient (CLI) | payer OTHER | LOC: M LABSMTC 11:23 | PROVIDERS: ATTEND Anesthesiology | DX: Z20.828 Contact with and (suspected) exposure to other viral communicable diseases (principal) ==

== ENCOUNTER → 2020-02-13 | Outpatient (CLI) | payer OTHER, MEDICAID ==
[~2020-02-13] MED LIST changes: +BUPIVACAINE HCL 0.25% 10ML VIAL As Ordered ONE; +BUPIVACAINE HCL 0.25% 30ML VIAL As Ordered ONE; +diazePAM 5MG TABLET As Ordered ONE; +oxyCODONE 5MG TAB As Ordered ONE
--- NOTE | 2020-02-14 03:25 | ECWPNPC ---
PATIENT NAME: VANESSA ELENA : 1980 GENDER: MALE VISIT DATE: 02/13/2020 DISCHARGE DATE: 02/13/20 1504 VISIT LOCKED DATE TIME: PHYSICIAN: BETTIE ALCANTAR MD RESOURCE: BETTIE ALCANTAR MD REASON FOR APPOINTMENT 1. BILATERAL NECK AND SHOULDER TRIGGER POINT INJECTIONS HISTORY OF PRESENT ILLNESS GENERAL: -. FALL RISK SCREENING: SCREENING :NO FALLS REPORTED IN THE LAST YEAR PAIN SCREENING: PATIENT HAS A COMPLAINT OF ACUTE OR CHRONIC PAIN :YES LOCATION OF PAIN:HEAD, NECK, BOTH SHOULDERS INTENSITY OF PAIN (SCALE OF 1 TO 10):5 WHAT DOES YOUR PAIN FEEL LIKE:ACHING, CONTINOUS, SHARP, STABBING, TENDER, THROBBING, SORE, SHOOTING, OTHER SHARP, STABBING, SHOOTING, GRINDING WITH CERTAIN MOVEMENT DURATION:CONTINOUS, CONSTANT, AWAKENS FROM SLEEP PAIN IS INCREASED BY: PROLONGED SITTING, LIFTING, RAISING HIS ARMS. PAIN IS DECREASED BY: RESTING, LYING DOWN FLAT FOR A FEW MINUTES, ICE AND HEAT NURSING NOTE: DR. ALCANTAR AWARE THAT PT HAD LEIONS REMOVED 02/02 FROM RIGHT OCCIPITAL AND BETWEEN SHOULDER BLADES AND THAT THE SUTURES ARE STILL IN. THE SUTURES ARE SCHEDULED TO BE REMOVED 02/17. PT ALSO HAS THE CELLULITIS ON RIGHT THIGH. DR. ALCANTAR REQUESTED THAT IT BE RELAYED TO THE PT. THAT HE WOULD DO THE PROCEDURE WITH OUT STEROIDS AND AFTER EXAMINING THE AREAS AND MAY DECIDE NOT TO DO THE TRIGGER POINT INJECTIONS AT ALL. THIS WAS EXPLAINED TO PT. AND HE VERBALIZED UNDERSTANDING STATING HE WOULD KEEP THE APPOINTMENT AND RESCHEDULE IF DR. ALCANTAR DECIDES NOT TO DO IT. PAIN CENTER INTAKE QUESTIONS: DO YOU HAVE A HISTORY OF MRSA? :NO DO YOU TAKE A BLOOD THINNERS? :NO DO YOU HAVE ANY BLEEDING DISORDERS? :NO ANY NEW NUMBNESS OR WEAKNESS IN YOUR LEGS OR ARMS? :YES TINGLING RIGHT HAND WHEN HAND IS ABOVE HEAD FOR MORE THAN 1 MIN- FOR THE PAST 2-3 WEEKS ANY PACEMAKER,DEFIBRILLATOR, OR DORSAL COLUMN STIMULATOR? :NO DO YOU HAVE ANY RASHES OR OPEN SORES? :YES CELLUITIS RIGHT THIGH, AND SUTURES RIGHT OCCIPITAL AND BETWEEN SHOULDER BLADES-DR. ALCANTAR AWARE ARE YOU ALLERGIC TO IV DYE? :NO ARE YOU DIABETIC? :NO ANY NEW PROBLEMS WITH YOUR MEDICATIONS? :NO HAVE YOU RECEIVED A VACCINE IN THE PAST 30 DAYS? :NO DO YOU PLAN TO RECEIVE A VACCINE IN THE NEXT 21 DAYS? :NO DO YOU TAKE ANY IMMUNOSUPPRESSIVE MEDICATIONS? :NO ANY HISTORY OF SEIZURES? :NO HAS TREMORS ANY HISTORY OF CARDIAC ISSUES OR EVENTS? :NO DO YOU HAVE SLEEP APNEA? :NO ANY RECENT HEAD INJURY? :NO DO YOU HAVE ANY NEW INFECTIONS? :NO IS THERE A CHANCE YOU COULD BE ? :NO ARE YOU BREAST FEEDING? :NO WHEN DID YOU LAST EAT? : 02/12/201999 WHEN DID YOU LAST DRINK? : 02/13/20899 WHAT DID YOU LAST DRINK? : BLACK NAME OF PERSON DRIVING YOU HOME? : KAMILLA (S.O) DO YOU HAVE ANY OTHER QUESTIONS OR CONCERNS? : NO CURRENT MEDICATIONS TAKING OMEPRAZOLE 20 MG CAPSULE DELAYED RELEASE 1 CAPSULE ORALLY ONCE A DAY TAKING LISINOPRIL 40 MG TABLET 1 TABLET ORALLY ONCE A DAY, NOTES: 02/12/20 0845 TAKING EPIPEN 1 MG/ML DEVICE INTRAMUSCULAR , NOTES: NOT RECENTLY TAKING AMITRIPTYLINE HCL 150 MG TABLET 1 TABLET AT BEDTIME ORALLY ONCE A DAY, NOTES: 02/13/20 0005 TAKING GABAPENTIN 600 MG TABLET 1 CAPSULE ORALLY THREE TIMES A DAY TAKING CYCLOBENZAPRINE HCL 10 MG TABLET 1 TABLET NEEDED ORALLY FOR SPASMS AND PAIN Q6H PRN TAKING VENLAFAXINE HCL ER 75 MG CAPSULE EXTENDED RELEASE 24 HOUR TAKE 1 CAPSULE BY MOUTH ONCE DAILY ORAL TAKING GLYCOPYRROLATE 2 MG TABLET 1 TABLET ORALLY ONCE A DAY IN AM TAKING DOXYCYCLINE HYCLATE 100 MG TABLET 1 TABLET ORALLY BID TAKING CELEBREX 200 MG CAPSULE 1 CAPSULE WITH FOOD ORALLY ONCE A DAY TAKING FLONASE 50 MCG/DOSE INHALER 1 SPRAY IN EACH NOSTRIL NASALLY DAILY MEDICATION LIST REVIEWED AND RECONCILED WITH THE PATIENT PAST MEDICAL HISTORY SCIATICA KIDNEY STONE FIBROMYALGIA HERNIATED DISCS IN THROUGHOUT NECK AND BACK GALL BLADDER PROBLEMS ARTHRITIS DEPRESSION ANXIETY NEUROLOGICAL PROBLEMS CELLULITIS TO LEFT THIGH LESIONS BETWEEN SHOULDERS AND RIGHT OCCIPITAL-REMOVED 02/03/2020 PNEUMONIA X5 TREMORS ALLERGIES BEES: ANAPHYLAXIS SURGICAL HISTORY TYMPANOSTOMY TUBE ( A CHILD) CYST REMOVED OCCIPITAL REGION 12/2017 EGD AND COLONOSCOPY 2016 LESIONS REMOVED RIGHT OCCIPITAL AND BETWEEN SHOULDER BLADES 02/2020 FAMILY HISTORY FATHER: ALIVE MOTHER: ALIVE, DM, BI-POLAR DISORDER, SCIATICA HIATAL HERNIA, HELICOBACTER PYLORI, RAZIA CELL CA., DIAGNOSED WITH DIABETES, UNSPECIFIED 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 NO KNOWN FAMILY HISTORY OF ANY UROLOGICALLY RELATED DISEASES\\/CANCERS. \\NMOM-HELICOBACTER PYLORI, ESPHOGEAL STRICTURE, HIATAL HERNIA, CATHERINE CELL CARCINOMA, UTI'S AND KIDNEY INFECTIONMOTHER HAD CATHERINE CELL CARCINOMA. DENIES FAMILY HX OF MELANOMA OR PANCREATIC CANCER. PATERNAL GRANDMOTHER 05/2018 FROM [place]. SOCIAL HISTORY GENERAL: TOBACCO USE ARE YOU A:CURRENT SMOKER ARE YOU INTERESTED IN QUITTING?THINKING ABOUT QUITTING HE STATES HE IS CUTTING DOWN COUNSELED THE PATIENT ON SMOKING CESSATION, EDUCATION [id number]/11/2020 HOW MANY CIGARETTES A DAY DO YOU SMOKE?6-10 HOW SOON AFTER YOU WAKE UP DO YOU SMOKE YOUR FIRST CIGARETTE?31-60 MIN HOW OFTEN DO YOU SMOKE CIGARETTES?EVERY DAY PATIENT COUNSELED ON THE DANGERS OF TOBACCO USE AND URGED TO QUIT:02/13/2020 SMOKING CESSATION INFORMATION GIVEN02/13/2020 LATEX QUESTIONNAIRE LATEX ALLERGY : HAVE YOU EVER DEVELOPED ANY TYPE OF REACTION AFTER HANDLING LATEX PRODUCTS SUCH RUBBER GLOVES, CONDOMS, DIAPHRAGMS, BALLOONS, SOCKS, OR UNDERWEAR?NO LATEX ALLERGY : HAVE YOU EVER DEVELOPED ANY TYPE OF REACTION DURING OR AFTER DENTAL APPOINTMENT, VAGINAL/RECTAL EXAMINATION, SURGICAL PROCEDURE, OR ANY OTHER EXPOSURE?NO LATEX RISK : HAVE YOU EVER HAD ANY DIFFICULTY BREATHING OR HIVES AFTER EATING OR HANDLING ANY FRUITS, OR VEGETABLES; SUCH KIWI, BANANAS, STONE FRUITS, OR CHESTNUTSNO LATEX RISK : DO YOU HAVE A PREVIOUS PERSONAL HISTORY OF MORE THAN NINE SURGERIES, SPINA BIFIDA, OR REPEATED CATHERIZATIONS? NO LATEX RISK : ARE YOU FREQUENTLY EXPOSED TO LATEX PRODUCTS IN YOUR OCCUPATION?NO DATE ASKED : 02/12/2020 LUNG CANCER SCREENING SMOKING STATUS:CURRENT SMOKER ALCOHOL SCREENING DID YOU HAVE A DRINK CONTAINING ALCOHOL IN THE PAST YEAR?NO POINTS0 INTERPRETATIONNEGATIVE RECREATIONAL DRUG USE DRUG USE?NO CAFFEINE CAFFEINE USE?YES HOW OFTEN AND HOW MUCH? 1 CUP COFFEE/DAY SEXUAL HX HAD SEX IN THE LAST 12 MONTHS (VAGINAL, ORAL, OR ANAL)?: YES, WITH: MEN ONLY, USE PROTECTION?: NO, HAVE YOU EVER HAD AN STD?: NO. ZOROASTRIANISM [id number] AGNOSTIC LANGUAGE SAMI. 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 EXERCISE: ACTIVE. MARITAL STATUS: SINGLE. OTHERS AT HOME: S.O.. PAIN CLINIC PFS, CLERGY, PUBLIC HEALTH REFERRALS PFS REFERRAL NEEDED?NO CLERGY REFERRAL NEEDED?NO PUBLIC HEALTH REFERRAL NEEDED?NO HAS THE PATIENT BEEN EDUCATED REGARDING HIS/HER PLAN OF CARE?YES HAS THE PATIENT BEEN EDUCATED REGARDING PAIN, THE RISK FOR PAIN, THE IMPORTANCE OF EFFECTIVE PAIN MANAGEMENT, AND THE PAIN ASSESSMENT PROCESS?YES ADVANCE DIRECTIVE ADVANCE DIRECTIVE DISCUSSED WITH PATIENT:YES 02/13/20 PT DOESN'T HAVE ANY ADVANCED DIRECTIVES AND HE DECLINES INFORMATION ON HCP AT THIS TIME. HOSPITALIZATION/MAJOR DIAGNOSTIC PROCEDURE PNEUMONIA X 5 VITAL SIGNS WT 265.8 LBS, HT 72", BMI 36.05 INDEX, BP 134/89 MM HG, HR 91 /MIN, RR 18 /MIN, TEMP 96.0 F, OXYGEN SAT % 97%, SAFE IN ENV? (Y/N) YES, NA INITIALS AW 1340, REVIEWED BY: JUANY TRENT BAND INSTRUMENT REPAIRER. EXAMINATION GENERAL EXAMINATION: THE PATIENT IS ALERT, ORIENTED TIMES THREE AND COOPERATIVE. HEART SHOWS REGULAR RHYTHM, NO MURMURS AND NO GALLOPS. LUNGS ARE CLEAR TO AUSCULTATION. ASSESSMENTS MYALGIA, OTHER SITE - M79.18 (PRIMARY) TREATMENT MYALGIA, OTHER SITE MEDICATION: VALIUM TAB 10MG ORALLY (DIAZEPAM)JACQUELINE SANCHEZ RN 02/13/2020 2:23:35 PM > VERIFIED. NADIA TRENT 02/13/2020 2:25:39 PM > ADMINISTERED. NADIA TRENT 02/13/2020 2:27:01 PM > LOT # [id number] EXP: 09/22 MEDICATION: OXYCODONE HCL TAB 10MG ORALLYJACQUELINE SANCHEZ RN 02/13/2020 2:23:50 PM > VERIFIED. NADIA TRENT 02/13/2020 2:26:01 PM > ADMINISTERED. NADIA TRENT 02/13/2020 2:27:32 PM > LOT# [id number] EXP: 04/26. OTHERS NOTES: ACTIVE NECK ROTATION MATERIAL WAS PRINTED. PROCEDURES PAIN NURSING RECORD PRE-PROCEDURE IV SITE N/A, PRE-PROCEDURE ORAL MEDICATIONS YES PER MD ORDERS PROCEDURE IN ROOM 1340 UPON ARRIVAL TO CLINIC, PHYSICIAN IN ROOM 1433, START 1440, FINISH 1443, PHYSICIAN OUT OF ROOM 1444, OUT OF ROOM 1500, STEROID N/A, O2 RA, ECG N/A, PATIENT SHIELDED NO, SAFETY STRAP NO, PREP ALCOHOL DR. ALCANTAR, IV INFUSED N/A, DRESSING TEGADERM LEON BAND INSTRUMENT REPAIRER LOC: NADIA TRENT 02/13/2020 2:00:07 PM > 1. ALERT, ORIENTED, LOC REMAINED AT BASELINE THROUGHOUT THE PROCEDURE RESP: NADIA TRENT 02/13/2020 2:00:07 PM > 1. REGULAR, NO DYSPNEA COLOR: NADIA TRENT 02/13/2020 2:00:07 PM > 1. PINK SKIN: NADIA TRENT 02/13/2020 2:00:07 PM > 1. WARM, DRY POSITION: NADIA TRENT 02/13/2020 2:00:07 PM > 4. OTHER, SITTING VITALS: NADIA TRENT 02/13/2020 2:55:00 PM > POST PROCEDURE 136/97, 98%, 95, 16. NOTES DR. ALCANTAR IN OKAY TO PROCEED WITH TRIGGER POINT INJECTIONS DESPITE HAVING HAVING RIGHT SIDED OCCIPITAL AND BETWEEN SHOULDER BLADES REMOVED ON 02/02. TRIGGER POINT INJECTIONS TO BE PERFORMED WITH STEROIDS. DISCHARGE: POST PAIN 05/12, DRESSING SITE DRY AND INTACT, IV N/A, GAIT STEADY, TEACHING COMPLETED, PATIENT ACKNOWLEDGES UNDERSTANDING YES, PATIENT DISCHARGED AT 1500 PN TRIGGER POINT INJECTION NO STEROIDS PRE PROCEDURE DIAGNOSIS 1. MYALGIA 2. PAIN AT BILATERAL NECK AREA AND BILATERAL SHOULDER AREA POST PROCEDURE DIAGNOSIS 1. MYALGIA 2. PAIN AT BILATERAL NECK AREA AND BILATERAL SHOULDER AREA PROCEDURE TRIGGER POINT INJECTION AT BILATERAL NECK AREA AND BILATERAL SHOULDER AREA SURGEON DR. BETTIE ALCANTAR ELECTRIC PILE DRIVER OPERATOR NONE ANESTHESIA LOCAL PRE PROCEDURE NOTE THE PATIENT WITH HISTORY OF CHRONIC PAIN AT RIGHT AND LEFT NECK AREA AND RIGHT AND LEFT SHOULDER AREA. I EVALUATED THE PATIENT AND REVIEWED THE CHART. THERE IS EVIDENCE OF BANDS OF TISSUE WITH RESTRICTION OF MOVEMENT AND PRESENCE OF TRIGGER POINT AT THE RIGHT AND LEFT NECK AREA AND RIGHT AND LEFT SHOULDER AREA. I WENT OVER THE RISKS, ALTERNATIVES, AND BENEFITS ASSOCIATED WITH THIS PROCEDURE. THE PATIENT WOULD LIKE TO PROCEED AND GAVE CONSENT TO PERFORM THE PROCEDURE. THE PATIENT DENIES UNEXPLAINABLE WEIGHT LOSS, FEVER, CHILLS, OR NEW CHANGES IN URINARY OR BOWEL CONTROL. THE PATIENT IS COVID-19 NEGATIVE DESCRIPTION OF PROCEDURE THE PATIENT WAS BROUGHT TO THE PROCEDURE ROOM AND PLACED IN THE SITTING POSITION. THE AREA WAS CLEANED WITH ALCOHOL. THE PROCEDURE WAS DONE USING ASEPTIC STERILE TECHNIQUES. I CHECKED LATERALITY AND THE LEVEL WHERE THE PROCEDURE WAS GOING TO BE PERFORMED WITH THE PATIENT AND THE SUPPORTING STAFF AT THE MOMENT OF THE TIME OUT IN THE PROCEDURE ROOM. USING A 25-GAUGE NEEDLE, TRIGGER POINTS WERE INJECTED INTO THE RIGHT AND LEFT NECK AREA AND RIGHT AND LEFT SHOULDER AREA WITH A TOTAL OF 40 ML OF BUPIVACAINE 0.25%. AGREED WITH THE PATIENT THE PROCEDURE WAS DONE WITHOUT STEROIDS. THERE WAS NO EVIDENCE OF BLOOD, PARESTHESIA OR CEREBROSPINAL FLUID DURING THE PROCEDURE. THE PATIENT WAS SENT TO THE RECOVERY ROOM. THE PATIENT WAS MOVING THE EXTREMITIES AND DOING WELL. THERE WAS NO COMPLICATION DURING THE PROCEDURE. EBL LESS THAN 5 ML POST PROCEDURE NOTE I EXPLAINED TO THE PATIENT SOME HOME EXERCISES TO DO TO HELP WITH HIS NECK PAIN. I TOLD THE PATIENT TO DO THIS EVERY DAY. DEPENDING ON THE RESULTS OF THE HOME EXERCISE AND THE INJECTION TODAY, CONSIDER THERAPEUTIC FACET BLOCKS. THE PROCEDURE DONE WAS DISCUSSED WITH THE PATIENT. THE PATIENT WILL BE SEEN IN A FOLLOW UP IN THE NEXT FEW WEEKS. I AM LOOKING FOR LONG LASTING PAIN RELIEF FOR THE PATIENT WITH THIS INTERVENTION. INSTRUCTIONS WERE GIVEN, QUESTIONS WERE ANSWERED, AND THE PATIENT EXPRESSED UNDERSTANDING AND AGREES WITH THE PLAN. I, BANDAR MARY, DOCUMENTED THE ABOVE INFORMATION ACTING A SCRIBE FOR DR. ALCANTAR. 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 IT IS NOT A COPY OF THE [employer] PROGRESS NOTE. AYANNA
== END ==
LOC: M PAIN 13:30
PROVIDERS: ATTEND Anesthesiology
DX: M79.18 Myalgia, other site (principal); F17.210 Nicotine dependence, cigarettes, uncomplicated; Z86.59 Personal history of other mental and behavioral disorders; Z91.030 Bee allergy status; Z79.899 Other long term (current) drug therapy

== ENCOUNTER → 2020-02-18 | Outpatient (CLI) | payer OTHER, MEDICAID ==
[~2020-02-18] MED LIST changes: -BUPIVACAINE HCL 0.25% 10ML VIAL As Ordered ONE; -BUPIVACAINE HCL 0.25% 30ML VIAL As Ordered ONE; -diazePAM 5MG TABLET As Ordered ONE; -oxyCODONE 5MG TAB As Ordered ONE
--- NOTE | 2020-02-20 04:48 | ECWPNPC ---
PATIENT NAME: VANESSA ELENA : 1980 GENDER: MALE VISIT DATE: 02/18/2020 DISCHARGE DATE: 02/18/20 1512 VISIT LOCKED DATE TIME: PHYSICIAN: WILIAN SANCHEZ RESOURCE: WILIAN SANCHEZ REASON FOR APPOINTMENT 1. MRI RESULTS-WILL BE A FEW MINUTES LATE HISTORY OF PRESENT ILLNESS DEPRESSION SCREENING: PHQ-9 LITTLE INTEREST OR PLEASURE IN DOING THINGSMORE THAN HALF THE DAYS FEELING DOWN, DEPRESSED, OR HOPELESSMORE THAN HALF THE DAYS TROUBLE FALLING OR STAYING ASLEEP, OR SLEEPING TOO MUCHNEARLY EVERY DAY FEELING TIRED OR HAVING LITTLE ENERGYNEARLY EVERY DAY POOR APPETITE OR OVEREATING NEARLY EVERY DAY FEELING BAD ABOUT YOURSELF-OR THAT YOU ARE A FAILURE OR HAVE LET YOURSELF OR YOUR FAMILY DOWN NEARLY EVERY DAY TROUBLE CONCENTRATING ON THINGS, SUCH READING THE NEWSPAPER OR WATCHING TELEVISION NEARLY EVERY DAY MOVING OR SPEAKING SO SLOWLY THAT OTHER PEOPLE COULD HAVE NOTICED. OR THE OPPOSITE- BEING SO FIDGETY OR RESTLESS THAT YOU HAVE BEEN MOVING AROUND A LOT MORE THAN USUALNOT AT ALL THOUGHTS THAT YOU WOULD BE BETTER OFF , OR OF HURTING YOURSELF IN SOME WAY?NOT AT ALL TOTAL SCORE:19 INTERPRETATIONMODERATELY SEVERE DEPRESSION PHQ-2 (2015 EDITION) LITTLE INTEREST OR PLEASURE IN DOING THINGS?MORE THAN HALF THE DAYS FEELING DOWN, DEPRESSED, OR HOPELESS?MORE THAN HALF THE DAYS TOTAL SCORE4 39-YEAR-OLD MALE IN FOR CHRONIC PAIN FOLLOW-UP. HE RATES HIS PAIN CURRENTLY AT A 2 OUT OF 10 AND DESCRIBES IT BURNING AND SHARP. PATIENT HAD A RECENT MRI DONE WHICH WILL BE REVIEWED WITH PATIENT TODAY. PAIN CENTER INTAKE QUESTIONS: DO YOU HAVE A HISTORY OF MRSA? :NO DO YOU TAKE A BLOOD THINNERS? :NO DO YOU HAVE ANY BLEEDING DISORDERS? :NO ANY NEW NUMBNESS OR WEAKNESS IN YOUR LEGS OR ARMS? :NO ANY PACEMAKER,DEFIBRILLATOR, OR DORSAL COLUMN STIMULATOR? :NO DO YOU HAVE ANY RASHES OR OPEN SORES? :YES RASH TO LEFT SCIENTOLOGY ARE YOU ALLERGIC TO IV DYE? :NO ARE YOU DIABETIC? :NO ANY NEW PROBLEMS WITH YOUR MEDICATIONS? :NO HAVE YOU RECEIVED A VACCINE IN THE PAST 30 DAYS? :NO DO YOU PLAN TO RECEIVE A VACCINE IN THE NEXT 21 DAYS? :NO DO YOU NEED ANY PRESCRIPTION? :YES VANLAFLEXINE, CYCLOBENZAPRINE DO YOU TAKE ANY IMMUNOSUPPRESSIVE MEDICATIONS? :NO IS THERE A CHANCE YOU COULD BE ? :NO ARE YOU BREAST FEEDING? :NO GENERAL: -. FALL RISK SCREENING: SCREENING :NO FALLS REPORTED IN THE LAST YEAR PAIN SCREENING: PATIENT HAS A COMPLAINT OF ACUTE OR CHRONIC PAIN :YES LOCATION OF PAIN:UPPER BACK, LEFT HIP, RIGHT HIP INTENSITY OF PAIN (SCALE OF 1 TO 10):2 WHAT DOES YOUR PAIN FEEL LIKE:BURNING, SHARP DURATION:CONTINOUS, CONSTANT PAIN IS INCREASED BY:ACTIVITIES PAIN IS DECREASED BY:USE OF PAIN MEDICATIONS RESTING TREATMENT/MEDICATIONS USED TO MANAGE PAIN: CYCLOBENZAPRINE, JULEE, AMITRIPTYLINE LEVEL OF RELIEF FROM PAIN TREATMENTS IN THE PAST:75% PAIN HAS INTERFERED WITH THE FOLLOWING:BATHING/DRESSING, WALKING ABILITY, HOUSEWORK, SLEEP, TRANSPORTATION, TOILETING NURSING NOTE: PT STATES HE IS MOVING TO [place] X20 DAYS, HE IS LEAVING TOMORROW, HE WILL RUN OUT OF CYCLOBENZAPRINE AND VANLAFEXINE AND CELEBREX, ASKING FOR REFILLS AHEAD OF TIME. CURRENT MEDICATIONS TAKING OMEPRAZOLE 20 MG CAPSULE DELAYED RELEASE 1 CAPSULE ORALLY ONCE A DAY TAKING LISINOPRIL 40 MG TABLET 1 TABLET ORALLY ONCE A DAY TAKING EPIPEN 1 MG/ML DEVICE INTRAMUSCULAR TAKING AMITRIPTYLINE HCL 150 MG TABLET 1 TABLET AT BEDTIME ORALLY ONCE A DAY TAKING GABAPENTIN 600 MG TABLET 1 CAPSULE ORALLY THREE TIMES A DAY TAKING CYCLOBENZAPRINE HCL 10 MG TABLET 1 TABLET NEEDED ORALLY FOR SPASMS AND PAIN Q6H PRN TAKING VENLAFAXINE HCL ER 75 MG CAPSULE EXTENDED RELEASE 24 HOUR TAKE 1 CAPSULE BY MOUTH ONCE DAILY ORAL TAKING GLYCOPYRROLATE 2 MG TABLET 1 TABLET ORALLY ONCE A DAY IN AM TAKING DOXYCYCLINE HYCLATE 100 MG TABLET 1 TABLET ORALLY BID TAKING CELEBREX 200 MG CAPSULE 1 CAPSULE WITH FOOD ORALLY ONCE A DAY TAKING FLONASE 50 MCG/DOSE INHALER 1 SPRAY IN EACH NOSTRIL NASALLY DAILY MEDICATION LIST REVIEWED AND RECONCILED WITH THE PATIENT PAST MEDICAL HISTORY SCIATICA KIDNEY STONE FIBROMYALGIA HERNIATED DISCS IN THROUGHOUT NECK AND BACK GALL BLADDER PROBLEMS ARTHRITIS DEPRESSION ANXIETY NEUROLOGICAL PROBLEMS CELLULITIS TO LEFT THIGH LESIONS BETWEEN SHOULDERS AND RIGHT OCCIPITAL-REMOVED 02/03/2020 PNEUMONIA X5 TREMORS ALLERGIES BEES: ANAPHYLAXIS SURGICAL HISTORY TYMPANOSTOMY TUBE ( A CHILD) CYST REMOVED OCCIPITAL REGION 12/2017 EGD AND COLONOSCOPY 2016 LESIONS REMOVED RIGHT OCCIPITAL AND BETWEEN SHOULDER BLADES 02/2020 FAMILY HISTORY FATHER: ALIVE MOTHER: ALIVE, DM, BI-POLAR DISORDER, SCIATICA HIATAL HERNIA, HELICOBACTER PYLORI, RAZIA CELL CA., DIAGNOSED WITH DIABETES, UNSPECIFIED 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 NO KNOWN FAMILY HISTORY OF ANY UROLOGICALLY RELATED DISEASES\\/CANCERS. \\NMOM-HELICOBACTER PYLORI, ESPHOGEAL STRICTURE, HIATAL HERNIA, CATHERINE CELL CARCINOMA, UTI'S AND KIDNEY INFECTIONMOTHER HAD CATHERINE CELL CARCINOMA. DENIES FAMILY HX OF MELANOMA OR PANCREATIC CANCER. PATERNAL GRANDMOTHER 05/2018 FROM [place]. SOCIAL HISTORY GENERAL: TOBACCO USE ARE YOU A:CURRENT SMOKER HOW OFTEN DO YOU SMOKE CIGARETTES?EVERY DAY HOW SOON AFTER YOU WAKE UP DO YOU SMOKE YOUR FIRST CIGARETTE?31-60 MIN HOW MANY CIGARETTES A DAY DO YOU SMOKE?6-10 ARE YOU INTERESTED IN QUITTING?THINKING ABOUT QUITTING HE STATES HE IS CUTTING DOWN PATIENT COUNSELED ON THE DANGERS OF TOBACCO USE AND URGED TO QUIT:02/13/2020 COUNSELED THE PATIENT ON SMOKING CESSATION, EDUCATION [id number]/11/2020 SMOKING CESSATION INFORMATION GIVEN02/13/2020 LATEX QUESTIONNAIRE LATEX ALLERGY : HAVE YOU EVER DEVELOPED ANY TYPE OF REACTION AFTER HANDLING LATEX PRODUCTS SUCH RUBBER GLOVES, CONDOMS, DIAPHRAGMS, BALLOONS, SOCKS, OR UNDERWEAR?NO LATEX ALLERGY : HAVE YOU EVER DEVELOPED ANY TYPE OF REACTION DURING OR AFTER DENTAL APPOINTMENT, VAGINAL/RECTAL EXAMINATION, SURGICAL PROCEDURE, OR ANY OTHER EXPOSURE?NO DATE ASKED : 02/12/2020 LATEX RISK : HAVE YOU EVER HAD ANY DIFFICULTY BREATHING OR HIVES AFTER EATING OR HANDLING ANY FRUITS, OR VEGETABLES; SUCH KIWI, BANANAS, STONE FRUITS, OR CHESTNUTSNO LATEX RISK : DO YOU HAVE A PREVIOUS PERSONAL HISTORY OF MORE THAN NINE SURGERIES, SPINA BIFIDA, OR REPEATED CATHERIZATIONS? NO LATEX RISK : ARE YOU FREQUENTLY EXPOSED TO LATEX PRODUCTS IN YOUR OCCUPATION?NO LUNG CANCER SCREENING SMOKING STATUS:CURRENT SMOKER ALCOHOL SCREENING DID YOU HAVE A DRINK CONTAINING ALCOHOL IN THE PAST YEAR?NO POINTS0 INTERPRETATIONNEGATIVE RECREATIONAL DRUG USE DRUG USE?NO CAFFEINE CAFFEINE USE?YES HOW OFTEN AND HOW MUCH? 1 CUP COFFEE/DAY SEXUAL HX HAD SEX IN THE LAST 12 MONTHS (VAGINAL, ORAL, OR ANAL)?: YES, WITH: MEN ONLY, USE PROTECTION?: NO, HAVE YOU EVER HAD AN STD?: NO. GNOSTICISM [id number] AGNOSTIC LANGUAGE ICELANDIC. 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 DIET: REGULAR. EXERCISE: ACTIVE. MARITAL STATUS: SINGLE. OTHERS AT HOME: S.O.. PAIN CLINIC PFS, CLERGY, PUBLIC HEALTH REFERRALS PFS REFERRAL NEEDED?NO CLERGY REFERRAL NEEDED?NO PUBLIC HEALTH REFERRAL NEEDED?NO HAS THE PATIENT BEEN EDUCATED REGARDING HIS/HER PLAN OF CARE?YES HAS THE PATIENT BEEN EDUCATED REGARDING PAIN, THE RISK FOR PAIN, THE IMPORTANCE OF EFFECTIVE PAIN MANAGEMENT, AND THE PAIN ASSESSMENT PROCESS?YES ADVANCE DIRECTIVE ADVANCE DIRECTIVE DISCUSSED WITH PATIENT:YES PT DOESN'T HAVE ANY ADVANCED DIRECTIVES AND HE DECLINES INFORMATION ON HCP AT THIS TIME. HOSPITALIZATION/MAJOR DIAGNOSTIC PROCEDURE PNEUMONIA X 5 REVIEW OF SYSTEMS CONSTITUTIONAL: ANY RECENT FEVER NO . CHILLS NO . WEIGHT CHANGE OF UNKNOWN REASONS NO . GASTROENTEROLOGY: NEW UNEXPLAINABLE CHANGES IN BOWEL CONTROL NO . CONSTIPATION NO . GENITOURINARY: ANY NEW CHANGE IN BLADDER CONTROL? NO . NEUROLOGY: NEW ONSET DIZZINESS OR NEUROLOGICAL CHANGES NOT MENTIONED NO . NEW NUMBNESS OR PAIN PATTERNS NOT MENTIONED AND PERTINENT TO TODAY'S VISIT NO . CARDIOLOGY: NEW CHEST PRESSURE NO . NEW CHEST PAIN NO . RESPIRATORY: UNEXPLAINABLE COUGH NO . NEW SHORTNESS OF BREATH NO . VITAL SIGNS WT 265.8 LBS, HT 72", BMI 36.05 INDEX, BP 162/97 MM HG, HR 92 /MIN, RR 18 /MIN, TEMP 97.5 F, OXYGEN SAT % 98%, SAFE IN ENV? (Y/N) Y, NA INITIALS SC 14:03, REVIEWED BY: EM. EXAMINATION GENERAL EXAMINATION: GENERALNO ACUTE DISTRESS, WELL NOURISHED AND HYDRATED. PSYCHAPPROPRIATE MOOD AND AFFECT . LUNGS:CLEAR TO AUSCULTATION BILATERALLY, NO WHEEZES, RHONCHI, RALES. HEART:NO MURMURS, REGULAR RATE AND RHYTHM. BACK:POINT TENDER L4-L5 SURROUNDING SKIN SHOWS NO ERYTHEMA, ECCHYMOSIS, INCREASED WARMTH, AND/OR SKIN ERUPTIONS NOTED. POSITIVE MODIFIED SLR RIGHT SIDE . MUSCULOSKELETAL:NOTABLE WEAKNESS OF THE RIGHT LOWER EXTREMITY, LEFT LOWER EXTREMITY WITHIN NORMAL LIMITS . ASSESSMENTS OTHER CHRONIC PAIN - G89.29 (PRIMARY) INTERVERTEBRAL DISC DISORDER WITH RADICULOPATHY OF LUMBAR REGION - M51.16 TREATMENT OTHER CHRONIC PAIN PAIN PROCEDURE LOGDATE OF [id number]:BILATERAL NECK AND SHOULDER TRIGGER POINT INJECTIONAMOUNT OF PRE SEDATEVALIUM 10MG, OXYCODONE 10MGRESULT:PRE-08/12 POST 04/14 CONTINUES TO HELP NOTES: 39-YEAR-OLD MALE IN FOR POST TRIGGER POINT INJECTION FOLLOW-UP. GIVEN PRESENTING SYMPTOMS AND RESULTS OF PHYSICAL EXAMINATION RECOMMENDED LUMBAR EPIDURAL STEROID INJECTION L4-L5 L5-S1 WITH POST PROCEDURAL FOLLOW-UP. PATIENT EXPRESSED UNDERSTANDING OF AND WAS IN AGREEMENT WITH TREATMENT PLAN. GIVEN TIME TO ASK QUESTIONS AND EXPRESS CONCERNS. INTERVERTEBRAL DISC DISORDER WITH RADICULOPATHY OF LUMBAR REGION REFILL CELEBREX CAPSULE, 200 MG, 1 CAPSULE WITH FOOD, ORALLY, ONCE A DAY, 90 DAYS, 90 CAPSULE REFILL CYCLOBENZAPRINE HCL TABLET, 10 MG, 1 TABLET NEEDED, ORALLY FOR SPASMS AND PAIN, Q6H PRN, 30 DAYS, 120, REFILLS 2 PROCEDURE CODES [id number] ESTABILISHED PATIENT [facility] F[facility]ILITY CHARGE DISPOSITION & COMMUNICATION FOLLOW UP POSTPROCEDURE (REASON: LUMBAR EPIDURAL STEROID INJECTION L4-L5 L5-S1) ELECTRONICALLY SIGNED BY TAMIKO CARROLL ON 02/19/2020 AT 03:28 PM EST DISCLAIMER : THIS IS A VISIT SUMMARY EXTRACTED FROM THE [employer] CHART. IT IS NOT A COPY OF THE [employer] PROGRESS NOTE. ABYD
== END ==
LOC: M PAIN 13:45
PROVIDERS: ATTEND Family Medicine
DX: M51.16 Intervertebral disc disorders with radiculopathy, lumbar region (principal); G89.29 Other chronic pain; M79.7 Fibromyalgia; F17.210 Nicotine dependence, cigarettes, uncomplicated; Z86.59 Personal history of other mental and behavioral disorders; Z91.030 Bee allergy status; Z79.899 Other long term (current) drug therapy

== ENCOUNTER → 2020-09-10 | Outpatient (CLI) | payer OTHER, MEDICAID ==
[~2020-09-10] MED LIST changes: -DOXY100C37 PO; +DOXY1CAP62 PO; +GABA-283 PO; -GABA-845 PO; +OMEP40CA4 PO; -OMEP40CA97 PO
--- NOTE | 2020-09-13 23:55 | ECWPNPC ---
PATIENT NAME: VANESSA ELENA : 1980 GENDER: MALE VISIT DATE: 09/10/2020 DISCHARGE DATE: 09/10/20 1443 VISIT LOCKED DATE TIME: PHYSICIAN: WILIAN SANCHEZ RESOURCE: WILIAN SANCHEZ REASON FOR APPOINTMENT 1. NECK/BACK HISTORY OF PRESENT ILLNESS GENERAL: HPI 40-YEAR-OLD MALE IN FOR CHRONIC PAIN FOLLOW-UP. HE RATES HIS PAIN CURRENTLY AT A 7 OUT OF 10 AND DESCRIBES IT ACHING, AND CONTINUOUS. PATIENT IS CURRENTLY ON CYCLOBENZAPRINE AND CELEBREX HE FEELS THE CELEBREX IS HELPFUL HOWEVER HE DOES NOT FEEL THE CYCLOBENZAPRINE IS BENEFICIAL. PATIENT DOES ADMIT TO NEUROLOGICAL SYMPTOMS SINCE BEING DIAGNOSED WITH COVID A FEW MONTHS BACK. HE FURTHER ADMITS TO EPISODES OF CONFUSION AND DIZZINESS THAT HE IS BEING WORKED UP BY HIS PRIMARY CARE FOR.. -. FALL RISK SCREENING: SCREENING : NO FALLS REPORTED IN THE LAST YEAR. PAIN SCREENING: PATIENT HAS A COMPLAINT OF ACUTE OR CHRONIC PAIN :YES LOCATION OF PAIN:NECK, LOW BACK 5-6 NECK INTENSITY OF PAIN (SCALE OF 1 TO 10):7 WHAT DOES YOUR PAIN FEEL LIKE:ACHING, CONTINOUS, OTHER DEEP PAIN DURATION:CONTINOUS PAIN IS INCREASED BY:ACTIVITIES PAIN IS DECREASED BY:OTHERS WALKING NURSING NOTE: -. PAIN CENTER INTAKE QUESTIONS: DO YOU HAVE A HISTORY OF MRSA? :NO DO YOU TAKE A BLOOD THINNERS? :NO DO YOU HAVE ANY BLEEDING DISORDERS? :NO ANY NEW NUMBNESS OR WEAKNESS IN YOUR LEGS OR ARMS? :YES FINGERTIPS, TOES AND ANKLES INCREASED NUMBNESS ANY PACEMAKER,DEFIBRILLATOR, OR DORSAL COLUMN STIMULATOR? :NO DO YOU HAVE ANY RASHES OR OPEN SORES? :NO ARE YOU ALLERGIC TO IV DYE? :NO ARE YOU DIABETIC? :NO ANY NEW PROBLEMS WITH YOUR MEDICATIONS? :NO HAVE YOU RECEIVED A VACCINE IN THE PAST 30 DAYS? :NO DO YOU PLAN TO RECEIVE A VACCINE IN THE NEXT 21 DAYS? :NO DO YOU NEED ANY PRESCRIPTION? :NO DO YOU TAKE ANY IMMUNOSUPPRESSIVE MEDICATIONS? :NO DO YOU HAVE ANY KIDNEY OR LIVER DISEASE? :NO IS THERE A CHANCE YOU COULD BE ? :NO ARE YOU BREAST FEEDING? :NO CURRENT MEDICATIONS TAKING OMEPRAZOLE 20 MG CAPSULE DELAYED RELEASE 1 CAPSULE ORALLY ONCE A DAY TAKING LISINOPRIL 40 MG TABLET 1 TABLET ORALLY ONCE A DAY TAKING EPIPEN 1 MG/ML DEVICE INTRAMUSCULAR TAKING AMITRIPTYLINE HCL 150 MG TABLET 1 TABLET AT BEDTIME ORALLY ONCE A DAY TAKING GABAPENTIN 600 MG TABLET 1 CAPSULE ORALLY THREE TIMES A DAY TAKING VENLAFAXINE HCL ER 75 MG CAPSULE EXTENDED RELEASE 24 HOUR TAKE 1 CAPSULE BY MOUTH ONCE DAILY ORAL TAKING GLYCOPYRROLATE 2 MG TABLET 1 TABLET ORALLY ONCE A DAY IN AM TAKING FLONASE 50 MCG/DOSE INHALER 1 SPRAY IN EACH NOSTRIL NASALLY DAILY TAKING CELEBREX 200 MG CAPSULE 1 CAPSULE WITH FOOD ORALLY ONCE A DAY TAKING CYCLOBENZAPRINE HCL 10 MG TABLET 1 TABLET NEEDED ORALLY FOR SPASMS AND PAIN Q6H PRN TAKING VITAMIN D 50 MCG (1999 UT) CAPSULE 1 CAPSULE ORALLY ONCE A DAY NOT-TAKING DOXYCYCLINE HYCLATE 100 MG TABLET 1 TABLET ORALLY BID MEDICATION LIST REVIEWED AND RECONCILED WITH THE PATIENT PAST MEDICAL HISTORY SCIATICA KIDNEY STONE FIBROMYALGIA HERNIATED DISCS IN THROUGHOUT NECK AND BACK GALL BLADDER PROBLEMS ARTHRITIS DEPRESSION ANXIETY NEUROLOGICAL PROBLEMS CELLULITIS TO LEFT THIGH LESIONS BETWEEN SHOULDERS AND RIGHT OCCIPITAL-REMOVED 02/03/2020 PNEUMONIA X5 TREMORS ALLERGIES BEES: ANAPHYLAXIS SOCIAL HISTORY GENERAL: TOBACCO USE ARE YOU A:CURRENT SMOKER ARE YOU INTERESTED IN QUITTING?THINKING ABOUT QUITTING HE STATES HE IS CUTTING DOWN COUNSELED THE PATIENT ON SMOKING CESSATION, EDUCATION [id number]/11/2020 HOW MANY CIGARETTES A DAY DO YOU SMOKE?6-10 HOW SOON AFTER YOU WAKE UP DO YOU SMOKE YOUR FIRST CIGARETTE?31-60 MIN HOW OFTEN DO YOU SMOKE CIGARETTES?EVERY DAY PATIENT COUNSELED ON THE DANGERS OF TOBACCO USE AND URGED TO QUIT:09/10/2020 SMOKING CESSATION INFORMATION GIVEN02/13/2020 LATEX QUESTIONNAIRE LATEX ALLERGY : HAVE YOU EVER DEVELOPED ANY TYPE OF REACTION AFTER HANDLING LATEX PRODUCTS SUCH RUBBER GLOVES, CONDOMS, DIAPHRAGMS, BALLOONS, SOCKS, OR UNDERWEAR?NO LATEX ALLERGY : HAVE YOU EVER DEVELOPED ANY TYPE OF REACTION DURING OR AFTER DENTAL APPOINTMENT, VAGINAL/RECTAL EXAMINATION, SURGICAL PROCEDURE, OR ANY OTHER EXPOSURE?NO LATEX RISK : HAVE YOU EVER HAD ANY DIFFICULTY BREATHING OR HIVES AFTER EATING OR HANDLING ANY FRUITS, OR VEGETABLES; SUCH KIWI, BANANAS, STONE FRUITS, OR CHESTNUTSNO LATEX RISK : DO YOU HAVE A PREVIOUS PERSONAL HISTORY OF MORE THAN NINE SURGERIES, SPINA BIFIDA, OR REPEATED CATHERIZATIONS? NO LATEX RISK : ARE YOU FREQUENTLY EXPOSED TO LATEX PRODUCTS IN YOUR OCCUPATION?NO DATE ASKED : 09/10/2020 LUNG CANCER SCREENING SMOKING STATUS:CURRENT SMOKER ALCOHOL SCREENING DID YOU HAVE A DRINK CONTAINING ALCOHOL IN THE PAST YEAR?NO POINTS0 INTERPRETATIONNEGATIVE RECREATIONAL DRUG USE DRUG USE?NO CAFFEINE CAFFEINE USE?YES HOW OFTEN AND HOW MUCH? 1 CUP COFFEE/DAY SEXUAL HX HAD SEX IN THE LAST 12 MONTHS (VAGINAL, ORAL, OR ANAL)?: YES, WITH: MEN ONLY, USE PROTECTION?: NO, HAVE YOU EVER HAD AN STD?: NO. JAINISM [id number] AGNOSTIC LANGUAGE SAMI. 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 EXERCISE: ACTIVE. MARITAL STATUS: SINGLE. OTHERS AT HOME: [facility] - [facility] REFERRAL NEEDED?NO CLERGY REFERRAL NEEDED?NO PUBLIC HEALTH REFERRAL NEEDED?NO HAS THE PATIENT BEEN EDUCATED REGARDING HIS/HER PLAN OF CARE?YES HAS THE PATIENT BEEN EDUCATED REGARDING PAIN, THE RISK FOR PAIN, THE IMPORTANCE OF EFFECTIVE PAIN MANAGEMENT, AND THE PAIN ASSESSMENT PROCESS?YES ADVANCE DIRECTIVE ADVANCE DIRECTIVE DISCUSSED WITH PATIENT:YES PT DOESN'T HAVE ANY ADVANCED DIRECTIVES AND HE DECLINES INFORMATION ON HCP AT THIS TIME. REVIEW OF SYSTEMS CONSTITUTIONAL: ANY RECENT FEVER NO . CHILLS NO . WEIGHT CHANGE OF UNKNOWN REASONS NO . GASTROENTEROLOGY: NEW UNEXPLAINABLE CHANGES IN BOWEL CONTROL NO . CONSTIPATION NO . GENITOURINARY: ANY NEW CHANGE IN BLADDER CONTROL? NO . NEUROLOGY: NEW ONSET DIZZINESS OR NEUROLOGICAL CHANGES NOT MENTIONED NO . NEW NUMBNESS OR PAIN PATTERNS NOT MENTIONED AND PERTINENT TO TODAY'S VISIT NO . CARDIOLOGY: NEW CHEST PRESSURE NO . PATIENT DENIES NO . RESPIRATORY: UNEXPLAINABLE COUGH NO . NEW SHORTNESS OF BREATH NO . VITAL SIGNS WT 272.6 LBS, HT 72", BMI 36.97 INDEX, BP 161/97 MM HG, HR 97 /MIN, RR 18 /MIN, TEMP 97.3 F, OXYGEN SAT % 95%, SAFE IN ENV? (Y/N) YES, NA INITIALS AW 1331, REVIEWED BY: Nicholas VU RN. EXAMINATION GENERAL EXAMINATION: GENERALNO ACUTE DISTRESS, WELL NOURISHED AND HYDRATED. PSYCHAPPROPRIATE MOOD AND AFFECT . LUNGS:CLEAR TO AUSCULTATION BILATERALLY, NO WHEEZES, RHONCHI, RALES. HEART:NO MURMURS, REGULAR RATE AND RHYTHM. ASSESSMENTS INTERVERTEBRAL DISC DISORDER WITH RADICULOPATHY OF LUMBAR REGION - M51.16 (PRIMARY) TREATMENT INTERVERTEBRAL DISC DISORDER WITH RADICULOPATHY OF LUMBAR REGION STOP CYCLOBENZAPRINE HCL TABLET, 10 MG, 1 TABLET NEEDED, ORALLY FOR SPASMS AND PAIN, Q6H PRN START SKELAXIN TABLET, 800 MG, 1 TABLET, ORALLY, THREE TIMES A DAY, 30 DAY(S), 90 TABLET NOTES: 40 YEAR OLD MALE IN FOR CHRONIC PAIN FOLLOW UP. GIVEN PRESENTING SYMPTOMS RECOMMEND STOPPING CYCLOBENZAPRINE AND STARTING SKELAXIN WITH FOLLOW UP IN 1 MONTH TO DETERMINE EFFICACY OF TREATMENT. PATIENT HAS EXPRESSED UNDERSTANDING OF AND WAS IN AGREEMENT WITH TREATMENT PLAN. GIVEN TIME TO ASK QUESTIONS AND EXPRESS CONCERNS. OTHERS NOTES: SKELAXIN MEDICATION INFORMATION SHEETS PRINTED AND GIVEN TO PATIENT 09/10/2020 Nicholas VU RN. PROCEDURE CODES FA211 ESTABILISHED PATIENT [facility] CHARGE DISPOSITION & COMMUNICATION FOLLOW UP 4 WEEKS (REASON: LOW BACK PAIN) ELECTRONICALLY SIGNED BY TAMIKO CARROLL ON 09/13/2020 AT 01:15 PM EDT DISCLAIMER : THIS IS A VISIT SUMMARY EXTRACTED FROM THE [employer] CHART. IT IS NOT A COPY OF THE [employer] PROGRESS NOTE. AYANNA
== END ==
LOC: M PAIN 13:45
PROVIDERS: ATTEND Family Medicine
DX: M51.16 Intervertebral disc disorders with radiculopathy, lumbar region (principal); G89.29 Other chronic pain; M79.7 Fibromyalgia; R25.1 Tremor, unspecified; F17.210 Nicotine dependence, cigarettes, uncomplicated; Z86.59 Personal history of other mental and behavioral disorders; Z91.030 Bee allergy status; Z79.899 Other long term (current) drug therapy

== ENCOUNTER → 2020-12-14 | Outpatient (REF) | payer OTHER, MEDICAID | LOC: M LAB REF 16:01 | PROVIDERS: ATTEND Surgery | DX: L72.3 Sebaceous cyst (principal) ==

== ENCOUNTER → 2021-02-18 | Outpatient (CLI) | payer OTHER ==
[~2021-02-18] MED LIST changes: -CYMB60CA3 PO; +CYMB60CA4 PO; +DOXY-443 PO; -DOXY1CAP62 PO
== END ==
LOC: M LABSMTC 13:49
PROVIDERS: ATTEND Pediatrics
DX: Z11.52 Encounter for screening for COVID-19 (principal)

== ENCOUNTER → 2021-08-26 | Outpatient (CLI) | payer OTHER ==
[~2021-08-26] MED LIST changes: +GABA-282 PO; +LISI40TA4 PO; +VENL150C43 PO
== END ==
LOC: M PAIN 14:15
PROVIDERS: ATTEND Nurse Practitioner Family
DX: M51.16 Intervertebral disc disorders with radiculopathy, lumbar region (principal); G89.29 Other chronic pain; M79.7 Fibromyalgia; F17.210 Nicotine dependence, cigarettes, uncomplicated; Z86.59 Personal history of other mental and behavioral disorders; Z91.030 Bee allergy status; Z79.899 Other long term (current) drug therapy

== ENCOUNTER 2021-10-02 20:27 | Emergency (ER) | payer OTHER ==
[~2021-10-02] VITALS: Ht 182.9 cm; Wt 100.0 kg
[~2021-10-02 20:27] MED LIST changes: -GABA-282 PO; -LISI40TA4 PO; -VENL150C43 PO
[2021-10-02] MEDS ORDERED: GABA-282 PO (20:36)
[2021-10-02] MEDS ORDERED: VENL150C43 PO (20:36)
[2021-10-02] MEDS ORDERED: LABETALOL 100MG/20ML VIAL IV STA (22:16)
[2021-10-02] MEDS ORDERED: ASPIRIN 81 MG CHEW TABLET PO ONE (22:20)
[2021-10-02 22:37] LABS: BASO # 0.1 10^3/uL (0.0-0.2); BASO % 0.5 % (0.0-1.0); EOS # 0.1 10^3/uL (0.0-0.5); HEMATOCRIT 45.2 % (42.0-52.0); HEMOGLOBIN 15.2 g/dl (13.5-17.5); LYMPH % 38.7 % (24.0-44.0); MEAN CORPUSCULAR HEMOGLOBIN 31.3 pg (27.0-33.0); MEAN CORPUSCULAR HGB CONC 33.6 g/dl (32.0-36.5); MEAN CORPUSCULAR VOLUME 93.2 fl (80.0-96.0); MONO # 0.8 10^3/uL (0.0-0.8); NEUTROPHILS # 5.3 10^3/uL (1.5-8.5); NEUTROPHILS % 51.5 % (36.0-66.0); PLATELET COUNT, AUTOMATED 294 10^3/uL (150-450); RED BLOOD COUNT 4.85 10^6/uL (4.30-6.10); WHITE BLOOD COUNT 10.3 10^3/uL (4.0-10.0)
[2021-10-02 22:50] VITALS: BP 153/110
[2021-10-02 23:07] LABS: ALBUMIN 3.7 GM/DL (3.2-5.2); ALT/SGPT 18 U/L (12-78); BILIRUBIN,DIRECT 0.1 MG/DL (0.0-0.2); BILIRUBIN,TOTAL 0.7 MG/DL (0.2-1.0); BLOOD UREA NITROGEN 13 MG/DL (7-18); CALCIUM LEVEL 8.7 MG/DL (8.5-10.1); CARBON DIOXIDE LEVEL 26 MEQ/L (21-32); CHLORIDE LEVEL 110 MEQ/L (98-107); CREATININE FOR GFR 0.95 MG/DL (0.70-1.30); GLOMERULAR FILTRATION RATE > 60.0 (>60); GLUCOSE, FASTING 84 MG/DL (70-100); POTASSIUM SERUM 3.9 MEQ/L (3.5-5.1); SODIUM LEVEL 143 MEQ/L (136-145); TOTAL PROTEIN 6.9 GM/DL (6.4-8.2)
[2021-10-02 23:08] LABS: CK-MB VALUE MASS 1.4 NG/ML (<3.6); MB/CK RELATIVE INDEX 1.28 (< OR =4)
[2021-10-02] MEDS ORDERED: LISI40TA4 PO (23:15)
[2021-10-02 23:26] VITALS: BP 136/84
== END 2021-10-02 23:47 | disposition home or self-care (01) ==
LOC: M ED 20:27
DX: I10 Essential (primary) hypertension (principal); K21.9 Gastro-esophageal reflux disease without esophagitis; Z86.73 Personal history of transient ischemic attack (TIA), and cerebral infarction without residual deficits; M54.9 Dorsalgia, unspecified; F17.200 Nicotine dependence, unspecified, uncomplicated; Z91.030 Bee allergy status; Z79.899 Other long term (current) drug therapy

== ENCOUNTER → 2021-10-05 | Outpatient (CLI) | payer OTHER ==
[~2021-10-05] MED LIST changes: +GABA-282 PO; +LISI40TA4 PO; +VENL150C43 PO
== END ==
LOC: M PAIN 14:15
PROVIDERS: ATTEND Anesthesiology
DX: M54.2 Cervicalgia (principal); G89.29 Other chronic pain; M79.18 Myalgia, other site; L05.91 Pilonidal cyst without abscess; M79.7 Fibromyalgia; F17.210 Nicotine dependence, cigarettes, uncomplicated; Z86.14 Personal history of Methicillin resistant Staphylococcus aureus infection; Z86.59 Personal history of other mental and behavioral disorders; Z91.030 Bee allergy status; Z79.899 Other long term (current) drug therapy

== ENCOUNTER → 2022-11-20 | Outpatient (CLI) | payer OTHER ==
[~2022-11-20] MED LIST changes: +CELE0.09 PO; -CELE1CAP9 PO; +CIPR0.3S37 OS; -CIPR0.3S6 OS; -GABA-283 PO; +GABA-284 PO
[2022-11-20 14:49] LABS: BASO # 0.1 10^3/uL (0.0-0.2); BASO % 0.6 % (0.0-1.0); EOS # 0.2 10^3/uL (0.0-0.5); EOS % 1.9 % (0.0-3.0); HEMATOCRIT 45.4 % (42.0-52.0); HEMOGLOBIN 15.1 g/dl (13.5-17.5); LYMPH # 3.4 10^3/uL (1.5-5.0); LYMPH % 42.3 % (24.0-44.0); MEAN CORPUSCULAR HEMOGLOBIN 30.2 pg (27.0-33.0); MEAN CORPUSCULAR HGB CONC 33.3 g/dl (32.0-36.5); MEAN CORPUSCULAR VOLUME 90.8 fl (80.0-96.0); MONO # 0.6 10^3/uL (0.0-0.8); MONO % 7.6 % (2.0-8.0); NEUTROPHILS # 3.8 10^3/uL (1.5-8.5); NEUTROPHILS % 47.3 % (36.0-66.0); PLATELET COUNT, AUTOMATED 274 10^3/uL (150-450)
[2022-11-20 15:16] LABS: LIPASE 116 U/L (12-53)
[2022-11-20 15:18] LABS: ALBUMIN 3.7 G/DL (3.2-5.2); ALKALINE PHOSPHATASE 58 U/L (46-116); ALT/SGPT 31 U/L (7.0-40); AST/SGOT 15 U/L (<34); BILIRUBIN,TOTAL 0.6 MG/DL (0.3-1.2); BLOOD UREA NITROGEN 13 MG/DL (9-23); CALCIUM LEVEL 8.8 MG/DL (8.5-10.1); CARBON DIOXIDE LEVEL 28 MMOL/L (20-31); CHLORIDE LEVEL 107 MMOL/L (98-107); CREATININE FOR GFR 0.84 MG/DL (0.70-1.30); GLOMERULAR FILTRATION RATE > 60.0 (>60); GLUCOSE, FASTING 123 MG/DL (60-100); POTASSIUM SERUM 4.1 MMOL/L (3.5-5.1); SODIUM LEVEL 141 MMOL/L (136-145); TOTAL PROTEIN 6.6 G/DL (5.7-8.2)
== END ==
LOC: M RAD 13:27
PROVIDERS: ATTEND Family Medicine
DX: M79.671 Pain in right foot (principal); R10.9 Unspecified abdominal pain; W57.XXXS Bitten or stung by nonvenomous insect and other nonvenomous arthropods, sequela; M77.31 Calcaneal spur, right foot

== ENCOUNTER 2023-01-19 17:01 | Emergency (ER) | payer OTHER ==
[~2023-01-19] VITALS: Ht 180.3 cm; Wt 111.5 kg
[2023-01-19] MEDS ORDERED: methocarbamoL 500 MG TAB PO ONE (18:50)
[2023-01-19] MEDS ORDERED: KETOROLAC 30 MG/ML 1ML VIAL IV ONE (18:50)
[2023-01-19 19:22] LABS: BASO # 0.1 10^3/uL (0.0-0.2); BASO % 0.5 % (0.0-1.0); EOS # 0.2 10^3/uL (0.0-0.5); HEMATOCRIT 48.3 % (42.0-52.0); HEMOGLOBIN 16.5 g/dl (13.5-17.5); LYMPH # 3.6 10^3/uL (1.5-5.0); MEAN CORPUSCULAR HEMOGLOBIN 30.9 pg (27.0-33.0); MEAN CORPUSCULAR HGB CONC 34.2 g/dl (32.0-36.5); MEAN CORPUSCULAR VOLUME 90.4 fl (80.0-96.0); MONO # 0.7 10^3/uL (0.0-0.8); MONO % 7.5 % (2.0-8.0); NEUTROPHILS # 5.1 10^3/uL (1.5-8.5); NEUTROPHILS % 52.7 % (36.0-66.0); PLATELET COUNT, AUTOMATED 288 10^3/uL (150-450); RED BLOOD COUNT 5.34 10^6/uL (4.30-6.10); WHITE BLOOD COUNT 9.6 10^3/uL (4.0-10.0)
[2023-01-19 19:42] LABS: LIPASE 31 U/L (12-53)
[2023-01-19 19:44] LABS: ALBUMIN 3.8 G/DL (3.2-5.2); ALKALINE PHOSPHATASE 54 U/L (46-116); ALT/SGPT 24 U/L (7.0-40); AST/SGOT 17 U/L (<34); BILIRUBIN,DIRECT 0.2 MG/DL (<0.4); BILIRUBIN,TOTAL 0.8 MG/DL (0.3-1.2); BLOOD UREA NITROGEN 12 MG/DL (9-23); CALCIUM LEVEL 8.8 MG/DL (8.5-10.1); CARBON DIOXIDE LEVEL 27 MMOL/L (20-31); CHLORIDE LEVEL 106 MMOL/L (98-107); CREATININE FOR GFR 0.75 MG/DL (0.70-1.30); GLOMERULAR FILTRATION RATE > 60.0 (>60); GLUCOSE, FASTING 89 MG/DL (60-100); SODIUM LEVEL 140 MMOL/L (136-145); TOTAL PROTEIN 6.6 G/DL (5.7-8.2)
[2023-01-19] MEDS ORDERED: ACETAMINOPHEN *IV* 1,000 MG in IV 1 EA IV ONE (19:55)
[2023-01-19] MEDS ORDERED: METH-1164 PO (20:53)
[2023-01-19] MEDS ORDERED: MEDR4PAK PO (20:53)
[2023-01-19] MEDS ORDERED: IBUP-1022 PO (20:53)
[2023-01-19 21:04] VITALS: BP 156/92; TEMP 97.4; O2SAT 98
== END 2023-01-19 21:06 | disposition home or self-care (01) ==
LOC: M ED 17:01
DX: M54.50 Low back pain, unspecified (principal); I10 Essential (primary) hypertension; K21.9 Gastro-esophageal reflux disease without esophagitis; Z87.442 Personal history of urinary calculi; Z86.73 Personal history of transient ischemic attack (TIA), and cerebral infarction without residual deficits; M54.30 Sciatica, unspecified side; F17.200 Nicotine dependence, unspecified, uncomplicated; Z91.030 Bee allergy status; Z79.899 Other long term (current) drug therapy
CPT/HCPCS: 72131; 74176; 80048; 80076; 81001; 83690; 85025; 96374; 96375; 99284; J0131; J1885

== ENCOUNTER → 2023-01-31 | Outpatient (CLI) | payer OTHER ==
[~2023-01-31] MED LIST changes: +MEDR4PAK PO; +METH-1164 PO
== END ==
LOC: M PAIN 16:30
PROVIDERS: ATTEND Anesthesiology
DX: M79.18 Myalgia, other site (principal); M54.50 Low back pain, unspecified; M51.16 Intervertebral disc disorders with radiculopathy, lumbar region; N50.82 Scrotal pain; L05.91 Pilonidal cyst without abscess; R20.0 Anesthesia of skin; F17.210 Nicotine dependence, cigarettes, uncomplicated; Z91.030 Bee allergy status; Z79.899 Other long term (current) drug therapy

== ENCOUNTER 2023-04-10 07:45 | Day surgery (SDC) | payer OTHER ==
[~2023-04-10] VITALS: Ht 182.9 cm; Wt 109.5 kg
[~2023-04-10 07:45] MED LIST changes: +NAPR-885 PO; +OMEP-173 PO; +PROSCAP2 PO; +TAMS1CAP17 PO
[2023-04-10] MEDS ORDERED: MIDAZOLAM INJ 2MG/2ML VIAL As Ordered ONE (09:16)
[2023-04-10] MEDS ORDERED: propofoL 200 MG/20 ML VIAL As Ordered ONE (09:17)
[2023-04-10] MEDS ORDERED: LIDOCAINE 2% 100MG/5ML SDV (FOR ANES.) As Ordered ONE (09:17)
[2023-04-10] MEDS ORDERED: KETOROLAC 60MG 2ML VIAL As Ordered ONE (10:55)
[2023-04-10] MEDS ORDERED: ONDANSETRON 4MG 2ML VIAL As Ordered ONE (10:55)
[2023-04-10] MEDS ORDERED: fentaNYL 100 MCG/2 ML INJECTION As Ordered ONE (12:10)
[2023-04-10] MEDS ORDERED: CHLOROPROCAINE PRES. FREE 2% 20ML VIAL As Ordered ONE (12:11)
[2023-04-10] MEDS ORDERED: ACETAMINOPHEN 1000MG 100ML IV BAG As Ordered ONE (12:53)
[2023-04-10] MEDS ORDERED: HYDROMORPHONE HCL 0.5 MG/ 0.5 ML SYRINGE IV PRN (13:15)
[2023-04-10] MEDS ORDERED: oxyCODONE 5MG TAB PO PRN (13:15)
[2023-04-10] MEDS ORDERED: fentaNYL 100 MCG/2 ML INJECTION IV PRN (13:15)
[2023-04-10] MEDS ORDERED: LR 1,000 ML IV SCH (13:15)
[2023-04-10] MEDS ORDERED: NORCO, ANEXSIA 5/325MG TABLET (HYDROcodone/ACETAMINOPHEN) PO PRN (13:25)
[2023-04-10] MEDS: ONDANSETRON 4MG 2ML VIAL IV PRN (13:31)
[2023-04-10 15:00] VITALS: BP 145/98; TEMP 98; O2SAT 99
== END 2023-04-10 15:06 | disposition home or self-care (01) ==
LOC: M SDC 07:45
PROVIDERS: ATTEND Surgery
DX: L05.91 Pilonidal cyst without abscess (principal); I10 Essential (primary) hypertension; K21.9 Gastro-esophageal reflux disease without esophagitis; N40.0 Benign prostatic hyperplasia without lower urinary tract symptoms; Z79.899 Other long term (current) drug therapy; Z91.030 Bee allergy status
CPT/HCPCS: 11770; 88304; J0131; J1100; J1885; J2250; J2401; J2405; J3010

== ENCOUNTER → 2023-05-25 | Outpatient (CLI) | payer OTHER | LOC: M PAIN 17:00 | PROVIDERS: ATTEND Nurse Practitioner Family | DX: M51.16 Intervertebral disc disorders with radiculopathy, lumbar region (principal); I10 Essential (primary) hypertension; M79.7 Fibromyalgia; F17.200 Nicotine dependence, unspecified, uncomplicated; Z79.1 Long term (current) use of non-steroidal anti-inflammatories (NSAID); Z79.891 Long term (current) use of opiate analgesic; Z79.899 Other long term (current) drug therapy ==

== ENCOUNTER → 2023-06-28 | Outpatient (CLI) | payer OTHER | LOC: M PLAIMG 14:27 | PROVIDERS: ATTEND Nurse Practitioner Family | DX: M51.16 Intervertebral disc disorders with radiculopathy, lumbar region (principal); M51.36 Other intervertebral disc degeneration, lumbar region ==

== ENCOUNTER 2023-08-11 17:16 | Emergency (ER) | payer OTHER ==
[~2023-08-11] VITALS: Ht 182.9 cm; Wt 106.5 kg
[~2023-08-11 17:16] MED LIST changes: +DOXY-323 PO; -DOXY-443 PO
[2023-08-11] MEDS ORDERED: CHLO125TA PO (17:23)
[2023-08-11] MEDS ORDERED: GABA-284 PO (17:23)
[2023-08-11] MEDS ORDERED: AMOX500C PO (18:22)
[2023-08-11] MEDS: AMOXICILLIN 500 MG CAP PO ONE (18:32)
[2023-08-11] MEDS: KETOROLAC 60MG 2ML VIAL IM ONE (18:34)
[2023-08-11 18:50] VITALS: BP 167/110; TEMP 97.2; O2SAT 99
== END 2023-08-11 19:06 | disposition home or self-care (01) ==
LOC: M ED 17:16
DX: K04.7 Periapical abscess without sinus (principal); I10 Essential (primary) hypertension; G47.33 Obstructive sleep apnea (adult) (pediatric); R51.9 Headache, unspecified; F17.200 Nicotine dependence, unspecified, uncomplicated; Q07.00 Arnold-Chiari syndrome without spina bifida or hydrocephalus; Z86.73 Personal history of transient ischemic attack (TIA), and cerebral infarction without residual deficits; Z87.442 Personal history of urinary calculi; Z79.2 Long term (current) use of antibiotics; Z79.811 Long term (current) use of aromatase inhibitors; Z79.899 Other long term (current) drug therapy; Z91.030 Bee allergy status
CPT/HCPCS: 96372; 99283; J1885

== ENCOUNTER → 2023-08-20 | Outpatient (CLI) | payer OTHER ==
[~2023-08-20] MED LIST changes: +AMOX500C PO; +CHLO125TA PO
== END ==
LOC: M PAIN 11:15
PROVIDERS: ATTEND Nurse Practitioner Family
DX: M79.10 Myalgia, unspecified site (principal); I10 Essential (primary) hypertension; F17.200 Nicotine dependence, unspecified, uncomplicated; Z79.1 Long term (current) use of non-steroidal anti-inflammatories (NSAID); Z79.2 Long term (current) use of antibiotics; Z79.899 Other long term (current) drug therapy; Z91.030 Bee allergy status

== ENCOUNTER → 2023-09-28 | Outpatient (CLI) | payer OTHER ==
[~2023-09-28] MED LIST changes: +TRIAMCINOLONE ACETONIDE SUSP 40MG/ML 1ML VIAL As Ordered ONE; +diazePAM 5MG TABLET As Ordered ONE; +oxyCODONE 5MG TAB As Ordered ONE
== END ==
LOC: M PAIN 16:30
PROVIDERS: ATTEND Anesthesiology
DX: M79.10 Myalgia, unspecified site (principal); M54.6 Pain in thoracic spine; F17.200 Nicotine dependence, unspecified, uncomplicated; Z79.891 Long term (current) use of opiate analgesic; Z79.899 Other long term (current) drug therapy; Z91.030 Bee allergy status
CPT/HCPCS: 20552; J0665; J3301

== ENCOUNTER 2024-01-09 17:38 | Emergency (ER) | payer OTHER ==
[~2024-01-09] VITALS: Ht 182.9 cm; Wt 106.6 kg
[~2024-01-09 17:38] MED LIST changes: -DOXY-323 PO; +DOXY-441 PO; +GABA-1172 PO; +GABA-1490 PO; -GABA-282 PO; -GABA600T4 PO; -TRIAMCINOLONE ACETONIDE SUSP 40MG/ML 1ML VIAL As Ordered ONE; -diazePAM 5MG TABLET As Ordered ONE; -oxyCODONE 5MG TAB As Ordered ONE
[2024-01-09 19:25] LABS: BASO # 0.1 10^3/uL (0.0-0.2); BASO % 0.6 % (0.0-1.0); EOS # 0.1 10^3/uL (0.0-0.5); EOS % 1.1 % (0.0-3.0); HEMATOCRIT 45.5 % (42.0-52.0); LYMPH # 3.6 10^3/uL (1.5-5.0); LYMPH % 39.8 % (24.0-44.0); MEAN CORPUSCULAR HEMOGLOBIN 31.2 pg (27.0-33.0); MEAN CORPUSCULAR HGB CONC 35.2 g/dl (32.0-36.5); MEAN CORPUSCULAR VOLUME 88.7 fl (80.0-96.0); MONO # 0.8 10^3/uL (0.0-0.8); MONO % 8.9 % (2.0-8.0); NEUTROPHILS # 4.5 10^3/uL (1.5-8.5); NEUTROPHILS % 49.4 % (36.0-66.0); PLATELET COUNT, AUTOMATED 323 10^3/uL (150-450); RED BLOOD COUNT 5.13 10^6/uL (4.30-6.10)
[2024-01-09 20:44] LABS: LIPASE 41 U/L (12-53)
[2024-01-09 20:57] LABS: ALBUMIN 3.9 G/DL (3.2-5.2); ALKALINE PHOSPHATASE 56 U/L (40-129); ALT/SGPT 26 U/L (7.0-40); AST/SGOT 15 U/L (<34); BILIRUBIN,DIRECT 0.3 MG/DL (<0.4); BILIRUBIN,TOTAL 0.8 MG/DL (0.3-1.2); BLOOD UREA NITROGEN 12 MG/DL (9-23); CALCIUM LEVEL 9.9 MG/DL (8.5-10.1); CARBON DIOXIDE LEVEL 27 MMOL/L (20-31); CHLORIDE LEVEL 105 MMOL/L (98-107); CREATININE FOR GFR 0.95 MG/DL (0.70-1.30); GLOMERULAR FILTRATION RATE > 60.0 (>60); GLUCOSE, FASTING 91 MG/DL (60-100); POTASSIUM SERUM 4.1 MMOL/L (3.5-5.1); SODIUM LEVEL 138 MMOL/L (136-145)
[2024-01-09 21:43] VITALS: BP 106/63; TEMP 97.2; O2SAT 99
[2024-01-09] MEDS: ACETAMINOPHEN 325 MG TAB PO ONE (22:57)
[2024-01-09] MEDS ORDERED: PROT1TAB2 PO (23:53)
[2024-01-09] MEDS ORDERED: CARA1TAB6 PO (23:53)
== END 2024-01-10 00:31 | disposition home or self-care (01) ==
LOC: M ED 17:38
DX: K80.50 Calculus of bile duct without cholangitis or cholecystitis without obstruction (principal); R10.13 Epigastric pain; R00.1 Bradycardia, unspecified; K21.9 Gastro-esophageal reflux disease without esophagitis; F17.200 Nicotine dependence, unspecified, uncomplicated; I10 Essential (primary) hypertension; Z91.030 Bee allergy status; Z79.811 Long term (current) use of aromatase inhibitors; Z79.899 Other long term (current) drug therapy

== ENCOUNTER → 2024-02-26 | Outpatient (CLI) | payer OTHER ==
[~2024-02-26] MED LIST changes: +CARA1TAB6 PO; +PROT1TAB2 PO
== END ==
LOC: M PAIN 11:00
PROVIDERS: ATTEND Anesthesiology
DX: M54.6 Pain in thoracic spine (principal); G89.29 Other chronic pain; M79.10 Myalgia, unspecified site; M79.18 Myalgia, other site; F17.200 Nicotine dependence, unspecified, uncomplicated; Z79.891 Long term (current) use of opiate analgesic; Z79.899 Other long term (current) drug therapy; Z91.030 Bee allergy status

== ENCOUNTER → 2024-07-09 | Outpatient (CLI) | payer OTHER ==
[2024-07-09 16:23] LABS: BASO # 0.1 10^3/uL (0.0-0.2); BASO % 0.6 % (0.0-1.0); EOS # 0.1 10^3/uL (0.0-0.5); EOS % 1.1 % (0.0-3.0); HEMATOCRIT 44.9 % (42.0-52.0); HEMOGLOBIN 15.4 g/dl (13.5-17.5); LYMPH # 3.6 10^3/uL (1.5-5.0); LYMPH % 43.4 % (24.0-44.0); MEAN CORPUSCULAR HGB CONC 34.3 g/dl (32.0-36.5); MEAN CORPUSCULAR VOLUME 90.5 fl (80.0-96.0); MONO # 0.6 10^3/uL (0.0-0.8); MONO % 6.9 % (2.0-8.0); NEUTROPHILS # 3.9 10^3/uL (1.5-8.5); NEUTROPHILS % 47.8 % (36.0-66.0); PLATELET COUNT, AUTOMATED 288 10^3/uL (150-450); RED BLOOD COUNT 4.96 10^6/uL (4.30-6.10); WHITE BLOOD COUNT 8.2 10^3/uL (4.0-10.0)
[2024-07-09 16:54] LABS: HEMOGLOBIN A1c 5.4 % (4.0-6.0)
[2024-07-09 16:56] LABS: ALBUMIN 3.7 G/DL (3.2-5.2); ALKALINE PHOSPHATASE 55 U/L (40-129); ALT/SGPT 19 U/L (7.0-40); AST/SGOT 12 U/L (<34); BILIRUBIN,TOTAL 0.4 MG/DL (0.3-1.2); BLOOD UREA NITROGEN 15 MG/DL (9-23); CALCIUM LEVEL 9.6 MG/DL (8.5-10.1); CARBON DIOXIDE LEVEL 33 MMOL/L (20-31); CHLORIDE LEVEL 106 MMOL/L (98-107); CHOLESTEROL LEVEL 202 MG/DL (<200); CHOLESTEROL RISK RATIO 4.82 (<5); CREATININE FOR GFR 0.88 MG/DL (0.70-1.30); GLOMERULAR FILTRATION RATE > 90.0 (>60); GLUCOSE, FASTING 100 MG/DL (60-100); HDL CHOLESTEROL 41.9 MG/DL (>40); LDL CHOLESTEROL 149.1 MG/DL (<100); NON-HDL-C 160.1 MG/DL; POTASSIUM SERUM 4.4 MMOL/L (3.5-5.1); SODIUM LEVEL 144 MMOL/L (136-145); TOTAL PROTEIN 6.8 G/DL (5.7-8.2); TRIGLYCERIDES LEVEL 55 MG/DL (<150)
== END ==
LOC: M LAB 15:57
PROVIDERS: ATTEND Family Medicine
DX: Z00.00 Encounter for general adult medical examination without abnormal findings (principal)

== ENCOUNTER → 2024-10-29 | Outpatient (REF) | payer OTHER ==
[~2024-10-29] MED LIST changes: -IBUP-1022 PO; +IBUP600T42 PO; +LISI40TA10 PO; -LISI40TA4 PO
[2024-10-29 18:37] LABS: BASO # 0.0 10^3/uL (0.0-0.2); BASO % 0.4 % (0.0-1.0); EOS # 0.2 10^3/uL (0.0-0.5); EOS % 2.0 % (0.0-3.0); LYMPH # 3.0 10^3/uL (1.5-5.0); LYMPH % 33.3 % (24.0-44.0); MONO # 0.6 10^3/uL (0.0-0.8); MONO % 7.0 % (2.0-8.0); NEUTROPHILS # 5.2 10^3/uL (1.5-8.5); NEUTROPHILS % 57.1 % (36.0-66.0); PLATELET COUNT, AUTOMATED 359 10^3/uL (150-450)
[2024-10-29 19:12] LABS: ALT/SGPT 25 U/L (7.0-40); AST/SGOT 26 U/L (<34); CALCIUM LEVEL 9.3 MG/DL (8.5-10.1); CARBON DIOXIDE LEVEL 24 MMOL/L (20-31); CHLORIDE LEVEL 104 MMOL/L (98-107); CHOLESTEROL LEVEL 222 MG/DL (<200); CHOLESTEROL RISK RATIO 5.84 (<5); CREATININE FOR GFR 0.84 MG/DL (0.70-1.30); GLOMERULAR FILTRATION RATE > 90.0 (>60); LDL CHOLESTEROL 142.2 MG/DL (<100); NON-HDL-C 184.0 MG/DL; POTASSIUM SERUM 4.2 MMOL/L (3.5-5.1); SODIUM LEVEL 141 MMOL/L (136-145); TRIGLYCERIDES LEVEL 209 MG/DL (<150)
[2024-10-29 19:43] LABS: ESTIMATED AVERAGE GLUCOSE 108.0 MG/DL (60-110)
== END ==
LOC: M SFHCLERA 13:28
PROVIDERS: ATTEND Family Medicine
DX: Z00.00 Encounter for general adult medical examination without abnormal findings (principal); S30.860D Insect bite (nonvenomous) of lower back and pelvis, subsequent encounter

== ENCOUNTER → 2024-12-31 | Outpatient (CLI) | payer OTHER | LOC: M RAD 07:08 | PROVIDERS: ATTEND Family Medicine | DX: R10.9 Unspecified abdominal pain (principal); K81.0 Acute cholecystitis | CPT/HCPCS: 78227; A9537 ==